=== PATIENT | female | born 1970 | race Caucasian/White ===

== ENCOUNTER 2024-01-16 08:49 | Outpatient (CLI) | payer OTHER, SELFPAY ==
--- OUTSIDE RECORDS SUMMARY | 2024-01-18 02:28 | XMS_ITS | Encounter Summary ---
Author Organization [facility] Address [address] [place] [id number] Care Team Providers Care Inspector Repairer Sandstone Name Role Phone Christian Mars MD Unavailable Unavailable Coming Ana Luisa Galeana MD Primary Care Provid er Coming Ana Luisa Galeana MD Unavailable [phone]- [phone] Nan Nguyen RN Unavailable Unavailable Reason for Visit * Reason Comments Medication Refill Encounter Details Date Type Department Care Team (Late st Contact Info) Description 10/08/[address] [phone] Ovidio Ewing PA-C [address] [place] [id number] Medication Refill Social History Tobacco Use Types [...] as of this encounter Plan of Treatment Upcoming Encounters Date Type Department Care Team (Late st Contact Info) Description 01/20/2024 2:00 PM CDT Office Visit [facility] [address] [place] [phone] Vidya Galeano PA-C [address] [place] [phone] 03/07/2024 2:00 PM CDT Office Visit [facility] [address] [place] [phone] [place] [address] [place], [place] [phone] documented as of this encounter Visit Diagnoses Diagnosis Insomnia, unspecified type documented in this encounter Additional Health Concerns Assessment Noted Time PHQ-9 Depression Total Score: 5 08/19/19 21 1:08 PM 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
--- OUTSIDE RECORDS SUMMARY | 2024-01-18 02:28 | XMS_ITS | Encounter Summary ---
Author Organization [facility] Address [address] [place] [address]. [place] [address] Care Team Providers Care Director Physical Therapy Name Role Phone Christian Mars MD Unavailable Unavailable Coming Ana Luisa Galeana MD Primary Care Provid er Coming Ana Luisa Galeana MD Unavailable [phone]- [phone] Nan Nguyen RN Unavailable Unavailable Reason for Visit * Reason Onset Date Comments Refill Request 01/17/2022 Encounter Details Date Type Department Care Team (Late st Contact Info) Description 01/17/2022 MyC Refill [address] [phone] Coming [place] Luisa [place] [id number] [place] [address] [phone] Refill Request Social History Tobacco Use Types [...] often do you attend chur ch or temple services? Never 10/12/2021 Do you belong to any clubs o r organizations such as worship groups, unions, fraternal or athletic groups, or [...] Answer Date Recorded PHQ-2 Score 1 10/13/2021 [facility] - Occupational [...] place to sleep or slept in a snf (including now)? No 10/12/2021 Sex and Gender Information Value Date Recorded Sex Assigned at Female 09/29/2018 12:59 AM CDT Gender Identity Female 09/29/2018 12:59 AM CDT Sexual Orientation Straight 09/29/2018 12 :59 AM CDT documented as of this encounter Plan of Treatment Upcoming Encounters Date Type Department Care Team (Late st Contact Info) Description 01/20/2024 2:00 PM CDT Office Visit [facility] [id number] [place] [address] [phone] Vidya Galeano PA-C [address] [place] [phone] 03/07/2024 2:00 PM CDT Office Visit [facility] [id number] [place] [address] [phone] [place] [address] [place], [place] [phone] documented as of this encounter Visit Diagnoses Diagnosis Anxiety attack Panic disorder without agoraphobia documented in this encounter Additional Health Concerns Assessment Noted Time PHQ-9 Depression Total Score: 5 10/14/19 22 7:02 AM CDT documented as of this encounter Care Teams Director Physical Therapy Relationship Specialty Start Date End Date Coming [place] Lu[place] [id number] [place] [address] [phone] PCP - General Family Practice 06/29/19 Christian Mars MD Family Practice 05/26/11 [place] [address] [place] [address] Assigned PCP 07/08/19 Nan Nguyen RN 09/09/21 08/10/22 documented as of this encounter
--- OUTSIDE RECORDS SUMMARY | 2024-01-18 02:28 | XMS_ITS | Encounter Summary ---
Author Organization [facility] Address [address] [place] [address]. [place] [address] Care Team Providers Care Contracting Engineer Name Role Phone Christian Mars MD Unavailable Unavailable Coming Ana Luisa Galeana MD Primary Care Provid er Coming Ana Luisa Galeana MD Unavailable [phone]- [phone] Reason for Visit * Reason Comments Medication Refill Encounter Details Date Type Department Care Team ([facility] st Contact Info) Description 01/02/[address] [phone] Coming Ana Luisa Galeana MD [address] [place] [address] [phone] Medication Refill Social History Tobacco Use Types [...] week 10/12/2021 How often do you attend [facility] or sikh services? Never 10/12/2021 Do you belong to any clubs o r organizations such as bahai groups, unions, fraternal or athletic groups, or [...] Answer Date Recorded PHQ-2 Score 2 11/09/2023 [facility] - Occupational [...] in an abandoned building, in an overnight nursing home, or couch-surfing.) Yes 06/09/2023 Are you worried [...] Description 01/20/2024 2:00 PM CDT Office Visit [facility] [address] [place] [phone] Vidya Galeano PA-C [id number] [place] [address] [phone] 03/07/2024 2:00 PM CDT Office Visit [facility] [id number] [place] [address] [phone] [place] [address] [place], [place] [phone] documented as of this encounter Visit Diagnoses Diagnosis Pure hyperglyceridemia Encounter for medication refill Issue of repeat prescriptions documented in this encounter Additional Health Concerns Assessment Noted Time PHQ-9 Depression Total Score: 9 09/26/19 24 11:29 AM CDT documented as of this encounter Care Teams Contracting Engineer Relationship Specialty Start Date [place] [address] [place] [address] PCP - General Family Practice 06/29/19 Christian Mars MD Family Practice 05/26/11 [place] [address] [place] [address] Assigned PCP 07/08/19 documented as of this encounter
--- OUTSIDE RECORDS SUMMARY | 2024-01-18 02:28 | XMS_ITS | Clinical Summary ---
Author Organization [facility] Address [address] [place] [address] Care Team Providers Care Optical Instrument Inspector Name Role Phone Christian Mars MD Unavailable Unavailable Coming Ana Luisa Galeana MD Primary Care Provid er Coming Ana Luisa Galeana MD Unavailable [phone]- [phone] Allergies Active Allergy Reactions Criticality Noted Date [...] Type Department Care Team Description 01/02/[address] [address] Ana Luisa Briones MD Medication Refill 11/12/[address] [address] Ana Luisa Briones MD Medication Refill 11/09/2023 MyC Medical Advice [address] [address] Johanne Sprague from Last 3 Months Immunizations [...] Substance Abuse Father C.A.D. Maternal Grandfather 50's [place] Coronary Artery Disease Maternal Grandfather Hea rt [...] week 10/12/2021 How often do you attend [facility] or hoahaoism services? Never 10/12/2021 Do you belong to any clubs o r organizations such as caodaism groups, unions, fraternal or athletic groups, or [...] Answer Date Recorded PHQ-2 Score 2 11/09/2023 [facility] of Occupat ional Health - Occupational Stress [...] Date Recorded Do you have housing? (Jovanny castorena is defined as stable permanent housing and [...] Comments Blood Pressure 161/94 06/15/2023 10:31 AM HAND SHAPER Pulse 61 06/15/2023 10:26 AM HAND SHAPER Temperature 36.7 ??C (98 ??F) 06/15/2023 10:26 AM HAND SHAPER Respiratory Rate 17 06/15/2023 10:26 AM HAND SHAPER Oxygen Saturation 98% 06/15/2023 10:26 AM HAND SHAPER Inhaled Oxygen Concentration - - Weight 86.2 kg (190 lb) 06/15/2023 10:26 AM HAND SHAPER Height 167.6 cm (5' 6) 06/15/2023 10:26 AM HAND SHAPER Body Mass Index 30.67 06/15/2023 10:26 AM HAND SHAPER Plan of Treatment Upcoming Encounters Date Type Department Care Team (Late st Contact Info) Description 01/20/2024 2:00 PM CDT Office Visit [facility] [address] [place] [phone] Vidya Galeano PA-C [address] [place] [address] 03/07/2024 2:00 PM CDT Office Visit [facility] [address] [place] [address] [place] [address] [place] [address] Health Maintenance Due Date Last Done Comments [...] Additional history exists YEARLY PREVENTIVE VISIT 10/13/2022 10/14/19 22, 08/23/2019, 08/23/2019, Additional history exists COVID-19 Vaccine (3 - season) 2023 10/13/2021, 10/29/2020 MAMMO SCREENING 03/12/2023 03/12/2022, 3 , 01/04/2019 DEPRESSION 6 MO INDEX REPEAT PHQ-9 11/23/2023 11/09/2023, 09/26/2023, 06/15/2023, Additional history exists ANNUAL REVIEW OF HM ORDERS 12/09/202312/08, 10/13/2021, 07/02/2020, Additional history exists DIABETIC FOOT EXAM 12/09/2023 12/08/2022, 0 12/08/2022, 12/17/2020, Additional history exists MICROALBUMIN 12/09/2023 12/08/2022, 04/1 02/2022, 12/05/2019, Additional history exists A1C 12/15/2023 06/15/2023, [...] DIRECT LDL PANEL Add-On 06/15/2023 10:40 AM HAND SHAPER Hyperlipidemia LDL goal <100 BASIC METABOLIC PANEL Add-On 06/15/2023 10:40 AM HAND SHAPER Fatigue, unspecified type HEMOGLOBIN A1C Routine 06/15/2023 10:40 AM HAND SHAPER Type 2 diabetes mellitus with hyperglycemia, without long-term current use of insulin (H) COLOGUARD([employer]) Routine 12/27/2022 10:40 AM CDT Colon cancer screening ALBUMIN RANDOM URINE QUANTITATIVE Routine 12/08/2022 11:13 AM CDT Type 2 diabetes mellitus with hyperglycemia, without long-term current use of insulin (H) MA SCREENING BILATERAL W/ NAVEED Routine 03/12/2022 10:56 AM CDT Visit for screening mammogram EYE EXAM - HIM SCAN Routine 10/03/2021 HIV 1 AND 2 ANTIBODY (QUEST) Routine 05/20/2008 8:07 AM HAND SHAPER HEPATITIS C ANTIBODY Routine 05/20/2008 8:07 AM HAND SHAPER from Last 3 Months or Most Recently Relevant to Health Maintenance Results * (ABNORMAL) Lipid panel reflex to direct LDL Fasting (06/15/2023 10:40 AM HAND SHAPER) Cholesterol 139 <200 mg/dL 06/15/2023 6:13 PM HAND SHAPER [facility] Triglycerides 1,116(H) <150 mg/dL 06/15/2023 6:13 PM HAND SHAPER [facility] Direct Measure HDL 20(L) >=50 mg/dL 06/15/2023 6:13 PM HAND SHAPER [facility] LDL Cholesterol Calculated 06/15/2023 6:13 PM HAND SHAPER [facility] Comment:Cannot estimate LDL when triglyceride exceeds 400 mg/dL Non HDL Cholesterol 119 <130 mg/dL 06/15/2023 6:13 PM HAND SHAPER [facility] Blood BLOOD SPECIMEN / Unknown Venipuncture / Unknown 06/15/2023 10:40 AM HAND SHAPER 06/15/2023 10:40 AM HAND SHAPER Narrative [facility] - 06/15/2023 6:13 PM HAND SHAPER Cholesterol Desirable: ??<200 mg/dL Triglycerides Normal: ??Less [...] MD LAB - BLOOD ORDERABLES [facility] [address] [facility], [address] [phone], [facility] [phone] * (ABNORMAL) Hemoglobin A1c (06/15/2023 10:40 AM HAND SHAPER) Hemoglobin A1C 9.6(H) 0.0 - 5.6 % 06/15/2023 11:17 AM HAND SHAPER [facility] Comment: Normal <5.7% Prediabetes 5.7-6.4% ?? Diabetes 6.5% or higher Note: Adopted from ADA consensus guidelines. Blood BLOOD SPECIMEN / Unknown Venipuncture / Unknown 06/15/2023 10:40 AM HAND SHAPER 06/15/2023 10:40 AM HAND SHAPER Narrative [facility] - 06/15/2023 11:17 AM HAND SHAPER Results confirmed by repeat test. September Monika Galeana MD LAB - BLOOD ORDERABLES [facility] [address] [facility] (no room number, 1st floor of clinic) [place] [address], [facility] [phone] * (ABNORMAL) Basic metabolic panel (Ca, Cl, CO2, Creat, Gluc, K, Na, BUN) (06/15/2023 10:40 AM HAND SHAPER) [facility] Sodium 135 135 - 145 mmol/L 06/15/2023 5:59 PM HAND SHAPER [facility] Comment:Reference intervals for this test were updated on 03/15/2023 to more accurately reflect our healthy population. There may be differences in the flagging of prior results with similar values performed with this method. Interpretation of those prior results can be made in the context of the updated reference intervals. Potassium 4.5 3.4 - 5.3 mmol/L 06/15/2023 5:59 PM HAND SHAPER [facility] Chloride 103 98 - 107 mmol/L 06/15/2023 5:59 PM HAND SHAPER [facility] Carbon Dioxide (CO2) 19(L) 22 - 29 mmol/L 06/15/2023 5:59 PM HAND SHAPER [facility] Anion Gap 13 7 - 15 mmol/L 06/15/2023 5:59 PM HAND SHAPER [facility] Urea Nitrogen 10.4 6.0 - 20.0 mg/dL 06/15/2023 5:59 PM HAND SHAPER [facility] Creatinine 0.64 0.51 - 0.95 mg/dL 06/15/2023 5:59 PM HAND SHAPER [facility] GFR Estimate >90 >60 mL/min/1. 73m2 06/15/2023 5:59 PM HAND SHAPER [facility] Calcium 9.4 8.6 - 10.0 mg/dL 06/15/2023 5:59 PM HAND SHAPER [facility] Glucose 301(H) 70 - 99 mg/dL 06/15/2023 5:59 PM HAND SHAPER [facility] Blood BLOOD SPECIMEN / Unknown Venipuncture / Unknown 06/15/2023 10:40 AM HAND SHAPER 06/15/2023 10:40 AM HAND SHAPER September Monika Galeana MD LAB - BLOOD ORDERABLES [facility] Lab [address] [facility], [address] [place] [address], [facility] [phone] * COLOGUARD([facility]) (12/27/2022 10:40 AM CDT) COLOGUARD-ABSTRACT Negative Negative 2022 10:58 AM CDT [facility] (CLIA #:[id number]) Comment: NEGATIVE TEST RESULT. A negative Cologuard [...] cancer. ??Following a negative Cologuard result, the [place] Cancer Society and U.S. Multi-Society Task Force screening guidelines recommend a Cologuard re-screening interval of 3 years. References: [place] Cancer Society Guideline for Colorectal Cancer Screening: https://www.cancer.org/cancer/izlnp-blqlep-nqnxep/hjmczjnip-kwvrcxven-meliuqf/ac s-rec ommendations.html.; Matt HAMMOND, Laura ANAYA, Bienvenido GONZALEZ, Colorectal Cancer Screening: Recommendations for Physicians and Patients from the U.S. Multi-Society Task Force on Colorectal Cancer Screening , Am J Gastroenterology 2017; 112:9125-8709. TEST DESCRIPTION: Composite algorithmic analysis of stool [...] Fischer et al, N Engl J Med 2014;370(14):5074-6260.) Cologuard may produce a false negative or false positive result (no colorectal cancer or precancerous polyp present at colonoscopy follow up). A negative Cologuard test result does not guarantee the absence of CRC or advanced adenoma (pre-cancer). The current Cologuard screening interval is every 3 years. ([place] Cancer Society and U.S. Multi-Society Task Force). Cologuard performance data in a 10,000 patient pivotal study using colonoscopy as the reference method can be accessed at the following location: www.LiveRamp/results. Additional description of the Cologuard test process, warnings and precautions can be found at www.Songfor.com. Stool specimen (specimen) 12/27/2022 10:40 AM CDT 12/28/2022 10:28 PM CDT September Monika Galeana MD LABORATORY [facility] [address] [phone] [facility] (CLIA #:[id number]) [place] [address] * Albumin Random Urine Quantitative with Creat [...] control, and institution of therapy with an ngvdaiwohbz-lqwkqxendf-bbczog (RAFAEL) inhibitor (if the patient can tolerate it). ?? Urine URINE SPECIMEN / Unknown Non-blood Collection / Unknown 12/08/2022 11:13 AM CDT 12/08/2022 12:21 PM CDT September Monika Galeana MD LAB - URINE ORDERABLES [facility] Lab [address] [facility], Room [address] [place] [address], [facility] [phone] * MA Screen Bilateral w/Naveed (03/12/2022 10:56 [...] - 10/03/2021 Date of last eye exam [facility] approx. 10-03-21 Patient Reported OTHER * HIV 1 and 2 Antibody (05/20/2008 8:07 AM HAND SHAPER) HIV 1&2 Antibody Negative NEG MISYS 05/20/2008 8:07 AM HAND SHAPER 05/15/2008 7:02 AM HAND SHAPER Rio Melvin MD LAB - BLOOD ORDERABL ES MISYS * Hepatitis C antibody (05/20/2008 8:07 AM HAND SHAPER) Hepatitis C Antibody Negative NEG MISYS 05/20/2008 8:07 AM HAND SHAPER 05/15/2008 7:02 AM HAND SHAPER Rio Melvin MD LAB - BLOOD ORDERABL ES MISYS from Last 3 Months or Most Recently Relevant to Health Maintenance Advance Directives For more information, please contact: [phone] * Full Code (Latest Code Status on File) Date Activated Date Inactivated Comments 04/03/2015 9:33 PM 04/07/2015 4:02 PM Care Teams Optical Instrument Inspector Relationship Specialty Start Date [place] [address] [place] [address] PCP - General Family Practice 06/29/19 Christian Mars MD Family Practice 05/26/11 [place] [address] [place] [address] Assigned PCP 07/08/19
--- OUTSIDE RECORDS SUMMARY | 2024-01-18 02:28 | XMS_ITS | Encounter Summary ---
Author Organization [facility] Address [address] [place] [address] Care Team Providers Care Sheet Metal Work Furnace Installer Name Role Phone Christian Mars MD Unavailable Unavailable Coming Ana Luisa Galeana MD Primary Care Provid er Coming Ana Luisa Galeana MD Unavailable [phone]- [phone] Encounter Details Date Type Department Care Team (Late st Contact Info) Description 11/09/2023 [facility] Medical Advice [address] [address] Johanne Sprague Social History Tobacco Use Types [...] often do you attend chur ch or druze services? Never 10/12/2021 Do you belong to any clubs o r organizations such as latter-day groups, unions, fraternal or athletic groups, or [...] Answer Date Recorded PHQ-2 Score 2 11/09/2023 [facility] of Occupat ional Health - Occupational [...] in an abandoned building, in an overnight prison, or couch-surfing.) Yes 06/09/2023 Are you worried [...] Description 01/20/2024 2:00 PM CDT Office Visit [facility] [address] [place] [phone] Vidya Galeano PA-C [address] [place] [phone] 03/07/2024 2:00 PM CDT Office Visit [facility] [address] [place] [phone] [place] [address] [place], [place] [phone] documented as of this encounter Visit Diagnoses Not on filedocumented in this encounter Additional Health Concerns Assessment Noted Time PHQ-9 Depression Total Score: 9 09/26/19 24 11:29 AM CDT documented as of this encounter Care Teams Sheet Metal Work Furnace Installer Relationship Specialty Start Date End Date Coming [place] [id number] [place] [phone] PCP - General Family Practice 06/29/19 Christian Mars MD Family Practice 05/26/11 [place] [address] [place] [address] Assigned PCP 07/08/19 documented as of this encounter
--- OUTSIDE RECORDS SUMMARY | 2024-01-18 02:28 | XMS_ITS | Encounter Summary ---
Author Organization [facility] Address [address] [place] [address]. [place] [address] Care Team Providers Care Superannuation Clerk Name Role Phone Christian Mars MD Unavailable Unavailable Coming Ana Luisa Galeana MD Primary Care Provid er Coming Ana Luisa Galeana MD Unavailable [phone]- [phone] Encounter Details Date Type Department Care Team (Late st Contact Info) Description 06/06/2023 [facility] Medical Advice [facility] [address] [place] [phone] [place]ana [place] [phone] [place] [phone] Social History Tobacco Use Types Packs/Day Years [...] you attend [facility] or hoahaoism services? Never 10/12/2021 Do you belong to any clubs o r organizations such as yazidi groups, unions, fraternal or athletic groups, or [...] Answer Date Recorded PHQ-2 Score 2 12/08/2022 [facility] of Occupat ional Health - Occupational Stress [...] in an abandoned building, in an overnight senior care, or couch-surfing.) Yes 06/09/2023 Are you worried [...] Description 01/20/2024 2:00 PM CDT Office Visit [facility] [address] [place] [phone] Vidya Galeano PA-C [address] [place] [phone] 03/07/2024 2:00 PM CDT Office Visit [facility] [address] [place] [phone] [place] [address] [place], [place] [phone] documented as of this encounter Visit Diagnoses Not on filedocumented in this encounter Additional Health Concerns Assessment Noted Time PHQ-9 Depression Total Score: 6 12/09/19 23 10:26 AM CDT documented as of this encounter Care Teams Superannuation Clerk Relationship Specialty Start Date [place] [address] [place] [address] PCP - General Family Practice 06/29/19 Christian Mars MD Family Practice 05/26/11 [place] [address] [place] [address] Assigned PCP 1/19/20 documented as of this encounter
--- OUTSIDE RECORDS SUMMARY | 2024-01-18 02:28 | XMS_ITS | Encounter Summary ---
Author Organization [facility] Address [address] [place] [address]. [place] [address] Care Team Providers Care Shed Boss Name Role Phone Christian Mars MD Unavailable Unavailable Coming Ana Luisa Galeana MD Primary Care Provid er Coming Ana Luisa Galeana MD Unavailable [phone]- [phone] Nan Nguyen RN Unavailable Unavailable Reason for Visit * Reason Onset Date Comments Refill Request 06/05/2022 Encounter Details Date Type Department Care Team (Late st Contact Info) Description 06/05/2022 MyC Refill [address] [phone] Coming [place]isa G[place]ana [place] [phone] [place] [phone] Refill Request Social History Tobacco Use Types [...] often do you attend chur ch or religion services? Never 10/12/2021 Do you belong to any clubs o r organizations such as scientologist groups, unions, fraternal or athletic groups, or [...] Answer Date Recorded PHQ-2 Score 3 03/26/2022 [facility] of Occupat ional Health - Occupational [...] Polly Huerta RN - 06/07/2022 11:54 AM MEDICAL HOUSEKEEPER Prescription approved per [facility] Refill Protocol. Polly Huerta RN CAL HOUSEKEEPER documented in this encounter Plan of Treatment Upcoming Encounters Date Type Department Care Team (Late st Contact Info) Description 01/20/2024 2:00 PM CDT Office Visit [facility] [address] [place] [phone] Vidya Galeano PA-C [address] [place] [phone] 03/07/2024 2:00 PM CDT Office Visit [facility] [address] [place] [phone] [place] [address] [place], [place] [phone] documented as of this encounter Visit Diagnoses Diagnosis Type 2 diabetes mellitus without complication, without long-term current use of insulin (H) documented in this encounter Additional Health Concerns Assessment Noted Time PHQ-9 Depression Total Score: 11 022 9:30 AM CDT documented as of this encounter Care Teams Shed Boss Relationship Specialty Start Date [place] [address] [place] [address] PCP - General Family Practice 06/29/19 Christian Mars MD [facility] Practice 05/26/11 [place] [address] [place] [address] Assigned PCP 07/08/19 Nan Nguyen, RN 09/09/21 08/10/22 documented as of this encounter
--- OUTSIDE RECORDS SUMMARY | 2024-01-18 02:28 | XMS_ITS | Encounter Summary ---
Author Organization [facility] Address [address] [place] [address]. [place] [address] Care Team Providers Care Air Tool Operator Name Role Phone Christian Mars MD Unavailable Unavailable Coming Ana Luisa Galeana MD Primary Care Provid er Coming Ana Luisa Galeana MD Unavailable [phone]- [phone] Nan Nguyen RN Unavailable Unavailable Reason for Visit * Reason Comments Medication Refill Encounter Details Date Type Department Care Team (Late st Contact Info) Description 08/09/[address] [phone] Coming Ana Luisa Galeana MD [address] [place] [phone] Medication Refill Social History Tobacco Use Types [...] COVID-19? No / Unsure 07/13/2021 1:45 PM BACKUP SAWYER documented as of this encounter Miscellaneous Notes * Telephone Encounter - Gissel Garcia RN - 08/10/2021 7:12 AM CST Routing refill request to provider for review/approval because: Drug not on the [facility] refill protocol Gissel Garcia RN on 08/10/2021 at 7:12 AM UP SAWYER documented in this encounter Plan of Treatment Upcoming Encounters Date Type Department Care Team (Late st Contact Info) Description 01/20/2024 2:00 PM CDT Office Visit [facility] [address] [place] [phone] Vidya Galeano PA-C [address] [place] [phone] 03/07/2024 2:00 PM CDT Office Visit [facility] [address] [place] [phone] [place] [address] [place], [place] [phone] documented as of this encounter Visit Diagnoses Diagnosis Insomnia, unspecified type documented in this encounter Additional Health Concerns Assessment Noted Time PHQ-9 Depression Total Score: 4 07/13/19 22 2:05 PM BACKUP SAWYER documented as of this encounter Care Teams Air Tool Operator Relationship Specialty Start Date [place] [address] [place], [place] [phone] PCP - General Family Practice 06/29/19 Christian Mars MD Family Practice 05/26/11 [place] [address] [facility] [place] [address] Assigned PCP 07/08/19 Nan Nguyen RN 09/09/21 2 documented as of this encounter
--- OUTSIDE RECORDS SUMMARY | 2024-01-18 02:28 | XMS_ITS | Encounter Summary ---
Author Organization [facility] Address [address] [place] [address]. [place] [address] Care Team Providers Care Neurological Surgery Teacher Name Role Phone Christian Mars MD Unavailable Unavailable Coming Ana Luisa Galeana MD Primary Care Provid er Coming Ana Luisa Galeana MD Unavailable [phone]- [phone] Nan Nguyen RN Unavailable Unavailable Reason for Visit * Reason Onset Date Comments Prior Auth - Medication 08/04/2022 INVOKANA 100 MG tablet PA APPROVED Encounter Details Date Type Department Care Team (Late st Contact Info) Description 08/04/2022 Telephone [facility] [address] [place] [phone] [place] [address] [place] [address] Prior Auth - Medication (INVOKANA 100 [...] often do you attend chur ch or alevism services? Never 10/12/2021 Do you belong to any clubs o r organizations such as christianity groups, unions, fraternal or athletic groups, or [...] Answer Date Recorded PHQ-2 Score 3 03/26/2022 [facility] of Occupat ional Health - Occupational Stress [...] place to sleep or slept in a long-term (including now)? No 10/12/2021 Sex and Gender [...] APPROVED Approved Dose/Quantity: 90 Reference #: Insurance P. [employer]: [employer] [phone] Expected CoPay: CoPay Card Available: Foundation Assistance Needed: Which Pharmacy is filling the prescription (Not needed for infusion/clinic administered): [id number] [facility] Pharmacy Notified: Yes Patient Notified: Comment: Pharmacy will notify patient. RNAL COMMUNICATIONS INTERN * Telephone Encounter - Micheline Santacruz - 08/08/2022 2:46 PM CST Images from the original note were not included. PA Initiation Medication: INVOKANA 100 MG tablet PA INITIATED Insurance Company: [employer] - Pharmacy Filling the Rx: [id number] - [place], [place] - [address] [facility] [address] Filling Pharmacy Filling Pharmacy Fax: Start Date: 08/08/2022 [place] Prior Authorization Team [employer]L COMMUNICATIONS INTERN * Telephone Encounter - Zulema Robb - 08/04/2022 10:22 AM CST Prior Authorization Retail Medication Request Medication/Dose: INVOKANA 100 MG tablet ICD code (if different than what is on RX): Type 2 diabetes mellitus with hyperglycemia, without long-term current use of insulin (H) [E11.65] Previously Tried and Failed: Rationale: Insurance Name: [facility] Pharmacy Information (if different than what is on RX) Name: [id number] [place], [place] - [address] [facility] [address] [employer]L COMMUNICATIONS INTERN documented in this encounter Plan of Treatment Upcoming Encounters Date Type Department Care Team (Late st Contact Info) Description 01/20/2024 2:00 PM CDT Office Visit [address] [phone] Vidya Galeano PA-C [address] [place] [phone] 03/07/2024 2:00 PM CDT Office Visit [facility] [address] [place] [phone] [place] [address] [place], [place] [phone] documented as of this encounter Visit Diagnoses Not on filedocumented in this encounter Additional Health Concerns Assessment Noted Time PHQ-9 Depression Total Score: 11 022 9:30 AM CDT documented as of this encounter Care Teams Neurological Surgery Teacher Relationship Specialty Start Date [place] [address] [place] [address] PCP - General Family Practice 06/29/19 Christian Mars MD [facility] Practice 05/26/11 [place] [address] [place] [address] Assigned PCP 07/08/19 Nan Nguyen, RN 09/09/21 08/10/22 documented as of this encounter
--- OUTSIDE RECORDS SUMMARY | 2024-01-18 02:28 | XMS_ITS | Encounter Summary ---
Author Organization [place] Address [address] [place] [address]. [place] [address] Care Team Providers Care Verify Rep Name Role Phone Christian Mars MD Unavailable Unavailable Coming Ana Luisa Galeana MD Primary Care Provid er Coming Ana Luisa Galeana MD Unavailable +- [phone] Nan Nguyen RN Unavailable Unavailable Reason for Visit * Reason Comments Medication Refill Encounter Details Date Type Department Care Team (Late st Contact Info) Description 02/19/[address] [address] Ryan Galvan MD Medication Refill [...] 02/20/2021 11:02 AM CDT Prescription approved per [facility] Refill Protocol. Tesha Steinberg, BERENICE [facility] -- Triage Nurse documented in this encounter Plan of Treatment Upcoming Encounters Date Type Department Care Team (Late st Contact Info) Description 01/20/2024 2:00 PM CDT Office Visit [facility] [address] [place] [phone] Vidya Galeano PA-C [address] [place] [phone] 03/07/2024 2:00 PM CDT Office Visit [facility] [address] [place] [phone] [place] [address] [place], [place] [phone] documented as of this encounter Visit Diagnoses Diagnosis Type 2 diabetes mellitus without complication, without long-term current use of insulin (H) documented in this encounter Additional Health Concerns Assessment Noted Time PHQ-9 Depression Total Score: 6 12/18/19 21 7:03 AM CDT documented as of this encounter Care Teams Verify Rep Relationship Specialty Start Date [place] [address] [place] [address] PCP - General Family Practice 06/29/19 Christian Mars MD Family Practice 05/26/11 [place] [address] [place] [address] Assigned PCP 07/08/19 Nan Nguyen, BERENICE 09/09/21 08/10/22 documented as of this encounter
--- OUTSIDE RECORDS SUMMARY | 2024-01-18 02:28 | XMS_ITS | Encounter Summary ---
Author Organization [place] Address [address] [place] [address]. [place] [address] Care Team Providers Care Masonry Installer Name Role Phone Christian Mars MD Unavailable Unavailable Coming Ana Luisa Galeana MD Primary Care Provid er Coming Ana Luisa Galeana MD Unavailable +1- [phone] Nan Nguyen RN Unavailable Unavailable Reason for Visit * Reason Comments Medication Refill Encounter Details Date Type Department Care Team (Late st Contact Info) Description 02/18/[address] [phone] Coming Ana Luisa Galeana MD [address] [place] [address] [phone] Medication Refill Social History Tobacco Use Types [...] the [facility] refill protocol Tesha Steinberg RN [facility] -- Triage Nurse documented in this encounter Plan of Treatment Upcoming Encounters Date Type Department Care Team (Late st Contact Info) Description 01/20/2024 2:00 PM CDT Office Visit [facility] [address] [place] [phone] Vidya Galeano PA-C [address] [place] [phone] 03/07/2024 2:00 PM CDT Office Visit [facility] [address] [place] [phone] [place] [address] [place], [place] [phone] documented as of this encounter Visit Diagnoses Diagnosis Anxiety attack Panic disorder without agoraphobia Insomnia, unspecified type documented in this encounter Additional Health Concerns Assessment Noted Time PHQ-9 Depression Total Score: 6 12/18/19 21 7:03 AM CDT documented as of this encounter Care Teams Masonry Installer Relationship Specialty Start Date [place] [address] [place], [place] [phone] PCP - General Family Practice 06/29/19 Christian Mars MD Family Practice 05/26/11 [place] [address] [place], [place] [phone] Assigned PCP 07/08/19 Nan Nguyen RN 09/09/21 08/10/22 documented as of this encounter
--- OUTSIDE RECORDS SUMMARY | 2024-01-18 02:28 | XMS_ITS | Encounter Summary ---
Author Organization [facility] Address [address] [place] [address]. [place] [address] Care Team Providers Care Bushler Name Role Phone Christian Mars MD Unavailable Unavailable Coming Ana Luisa Galeana MD Primary Care Provid er Coming Ana Luisa Galeana MD Unavailable +1- [phone] Reason for Visit * Reason Comments Medication Refill Encounter Details Date Type Department Care Team ([facility] st Contact Info) Description 11/12/[address] [phone] Coming Ana Luisa Galeana MD [address] [place] [address] [phone] Medication Refill Social History Tobacco Use Types [...] week 10/12/2021 How often do you attend [facility] or lutheran services? Never 10/12/2021 Do you belong to any clubs o r organizations such as jewish groups, unions, fraternal or athletic groups, or [...] Answer Date Recorded PHQ-2 Score 2 11/09/2023 [facility] - [...] in an abandoned building, in an overnight penitentiary, or couch-surfing.) Yes 06/09/2023 Are you worried [...] a message to call clinic. Johanne Sprague. Teletype Mechanic * Telephone Encounter - Ana Luisa Briones MD - 11/15/2023 10:47 PM CDT Needs visit for refills, please call to schedule. documented in this encounter Plan of Treatment Upcoming Encounters Date Type Department Care Team (Late st Contact Info) Description 01/20/2024 2:00 PM CDT Office Visit [address] [phone] Vidya Galeano PA-C [address] [place] [phone] 03/07/2024 2:00 PM CDT Office Visit [facility] [address] [place] [address] [place] [address] [place] [address] documented as of this encounter Visit Diagnoses Diagnosis Type 2 diabetes mellitus with hyperglycemia, without long-term current use of insulin (H) Uncontrolled type 2 diabetes mellitus with hyperglycemia (H) documented in this encounter Additional Health Concerns Assessment Noted Time PHQ-9 Depression Total Score: 9 09/26/19 24 11:29 AM CDT documented as of this encounter Care Teams Bushler Relationship Specialty Start Date [place] [address] [place] [address] PCP - General Family Practice 06/29/19 Christian Mars MD [place] Family [facility] 05/26/11 [place] [address] [place] [address] Assigned PCP 07/08/19 documented as of this encounter
--- OUTSIDE RECORDS SUMMARY | 2024-01-18 02:28 | XMS_ITS | Encounter Summary ---
Author Organization [place] Address [address] [place] [address]. [place] [address] Care Team Providers Care Executive Director Of Nursing Name Role Phone Christian Mars MD Unavailable Unavailable Coming Ana Luisa Galeana MD Primary Care Provid er Coming Ana Luisa Galeana MD Unavailable +1- [phone] Nan Nguyen RN Unavailable Unavailable Reason for Visit * Reason Comments Medication Refill Encounter Details Date Type Department Care Team (Late st Contact Info) Description 03/01/[address] [phone] Coming Ana Luisa Glaeana MD [address] [place] [phone] Medication Refill Social History Tobacco Use Types [...] week 10/12/2021 How often do you attend [facility] or adventism services? Never 10/12/2021 Do you belong to any clubs o r organizations such as yazidism groups, unions, fraternal or athletic groups, or [...] Answer Date Recorded PHQ-2 Score 2 02/15/2022 [facility] - Occupational [...] place to sleep or slept in a prison (including now)? No 10/12/2021 Sex and Gender [...] Description 01/20/2024 2:00 PM CDT Office Visit [facility] [address] [place] [phone] Vidya Galeano PA-C [address] [place] [phone] 03/07/2024 2:00 PM CDT Office Visit [facility] [address] [place] [phone] [place] [address] [place] [address] documented as of this encounter Visit Diagnoses Diagnosis Insomnia, unspecified type documented in this encounter Additional Health Concerns Assessment Noted Time PHQ-9 Depression Total Score: 7 02/16/20 22 10:24 AM CDT documented as of this encounter Care Teams Executive Director Of Nursing Relationship Specialty Start Date End Date Coming [place]ana [place] [id number] [place] [address] PCP - General Family Practice 06/29/19 Christian Mars MD Family Practice 05/26/11 [place] [address] [place] [address] Assigned PCP 07/08/19 Nan Nguyen, RN 09/09/21 08/10/22 documented as of this encounter
--- OUTSIDE RECORDS SUMMARY | 2024-01-18 02:28 | XMS_ITS | Encounter Summary ---
Author Organization [facility] Address [address] [place] [address]. [place] [address] Care Team Providers Care Fortune Cookie Maker Name Role Phone Christian Mars MD Unavailable Unavailable Coming Ana Luisa Galeana MD Primary Care Provid er Coming Ana Luisa Galeana MD Unavailable +1- [phone] Nan Nguyen RN Unavailable Unavailable Reason for Visit * Reason Comments Medication Refill Encounter Details Date Type Department Care Team (Late st Contact Info) Description 03/08/[address] [phone] Coming Ana Luisa Galeana MD [address] [place] [address] [phone] Medication Refill Social History Tobacco Use Types [...] Miscellaneous Notes * Telephone Encounter - Zuly Guerrero, RN - 03/10/2021 1:26 PM CDT Images from the original note were not included. Routing refill request to provider for review/approval because: SSRIs Protocol [id number]/08/2021 03:26 AM PHQ-9 score less than 5 [...] 2:00 PM CDT Office Visit [facility] [address] [place] [phone] Vidya Galeano PA-C [address] [place] [phone] 03/07/2024 2:00 PM CDT Office Visit [facility] [address] [place] [phone] [place] [address] [place], [place] [phone] documented as of this encounter Visit Diagnoses Diagnosis IGNACIO (generalized anxiety disorder) Generalized anxiety disorder Current mild episode of major depressive disorder, unspecified whether recurrent (H24) documented in this encounter Additional Health Concerns Assessment Noted Time PHQ-9 Depression Total Score: 6 12/18/19 21 7:03 AM CDT documented as of this encounter Care Teams Fortune Cookie Maker Relationship Specialty Start Date End Date Coming [place] [id number] [place] [address] [phone] PCP - General Family Practice 06/29/19 Christian Mars MD Family Practice 05/26/11 [place] [address] [place] [address] Assigned PCP 07/08/19 Nan Nguyen, RN 09/09/21 08/10/22 documented as of this encounter
--- OUTSIDE RECORDS SUMMARY | 2024-01-18 02:28 | XMS_ITS | Encounter Summary ---
Author Organization [facility] Address [address] [place] [address]. [place] [address] Care Team Providers Care Lining Caser Name Role Phone Christian Mars MD Unavailable Unavailable Coming Ana Luisa Galeana MD Primary Care Provid er Coming Ana Luisa Galeana MD Unavailable +- [phone] Nan Nguyen RN Unavailable Unavailable Encounter Details Date Type Department Care Team (Late st Contact Info) Description 04/29/2022 [facility] Medical Advice [facility] [address] [place] [address] Khanh Ansari Social History Tobacco [...] often do you attend chur ch or amish services? Never 10/12/2021 Do you belong to any clubs o r organizations such as pentecostalism groups, unions, fraternal or athletic groups, or [...] Answer Date Recorded PHQ-2 Score 3 03/26/2022 [facility] Occup[facility] Health - Occupational [...] place to sleep or slept in a chcf (including now)? No 10/12/2021 Sex and Gender Information Value Date Recorded Sex Assigned at Female 09/29/2018 12:59 AM CDT Gender Identity Female 09/29/2018 12:59 AM CDT Sexual Orientation Straight 09/29/2018 12 :59 AM CDT documented as of this encounter Plan of Treatment Upcoming Encounters Date Type Department Care Team (Late st Contact Info) Description 01/20/2024 2:00 PM CDT Office Visit [facility] [address] [place] [phone] Vidya Galeano PA-C [address] [place] [phone] 03/07/2024 2:00 PM CDT Office Visit [facility] [address] [place] [phone] [place] [address] [place], [place] [phone] documented as of this encounter Visit Diagnoses Not on filedocumented in this encounter Additional Health Concerns Assessment Noted Time PHQ-9 Depression Total Score: 11 022 9:30 AM CDT documented as of this encounter Care Teams Lining Caser Relationship Specialty Start [place] [address] [place], [place] [phone] PCP - General Family Practice 06/29/19 Christian Mars MD Family Practice 05/26/11 [place] [address] [place] [address] Assigned PCP 07/08/19 Nan Nguyen, RN 09/09/21 08/10/22 documented as of this encounter
--- OUTSIDE RECORDS SUMMARY | 2024-01-18 02:28 | XMS_ITS | Referral Summary ---
Author Organization [facility] Address [address] [place] [address] Care Team Providers Care Armhole Sewer Name Role Phone Christian Mars MD Unavailable Unavailable Coming Ana Luisa Galeana MD Primary Care Provid er Coming Ana Luisa Galeana MD Unavailable +1- [phone] Encounters Date Type Department Care Team Description 01/02/[address] [phone] Coming Ana Luisa Galeana MD Medication Refill 11/12/[address] [address] Ana Luisa Briones MD Medication Refill 11/09/2023 [facility] Medical Advice [address] [address] Johanne Sprague from Last 3 Months Allergies [...] week 10/12/2021 How often do you attend [facility] or hinduism services? Never 10/12/2021 Do you belong to any clubs o r organizations such as presybeterian groups, unions, fraternal or athletic groups, or [...] Answer Date Recorded PHQ-2 Score 2 11/09/2023 [facility]at ional Health - [...] Comments Blood Pressure 161/94 06/15/2023 10:31 AM LAST CLEANER Pulse 61 06/15/2023 10:26 AM LAST CLEANER Temperature 36.7 ??C (98 ??F) 06/15/2023 10:26 AM LAST CLEANER Respiratory Rate 17 06/15/2023 10:26 AM LAST CLEANER Oxygen Saturation 98% 06/15/2023 10:26 AM LAST CLEANER Inhaled Oxygen Concentration - - Weight 86.2 kg (190 lb) 06/15/2023 10:26 AM LAST CLEANER Height 167.6 cm (5' 6) 06/15/2023 10:26 AM LAST CLEANER Body Mass Index 30.67 06/15/2023 10:26 AM LAST CLEANER Plan of Treatment Upcoming Encounters Date Type Department Care Team (Late st Contact Info) Description 01/20/2024 2:00 PM CDT Office Visit [address] [phone] Vidya Galeano PA-C [address] [place] [phone] 03/07/2024 2:00 PM CDT Office Visit [address] [phone] [place] [address] [place], [place] [phone] Procedures Procedure Name Priority Date/Time Associated Diagnosis Comments LIPID REFLEX TO DIRECT LDL PANEL Add-On 06/15/2023 10:40 AM LAST CLEANER Hyperlipidemia LDL goal <100 BASIC METABOLIC PANEL Add-On 06/15/2023 10:40 AM LAST CLEANER Fatigue, unspecified type HEMOGLOBIN A1C Routine 06/15/2023 10:40 AM LAST CLEANER Type 2 diabetes mellitus with hyperglycemia, without [...] 2 ANTIBODY (QUEST) Routine 05/20/2008 8:07 AM LAST CLEANER HEPATITIS C ANTIBODY Routine 05/20/2008 8:07 AM LAST CLEANER from Last 3 Months or Most Recently Relevant to Health Maintenance Results * (ABNORMAL) Lipid panel reflex to direct LDL Fasting (06/15/2023 10:40 AM LAST CLEANER) Cholesterol 139 <200 mg/dL 06/15/2023 6:13 PM LAST CLEANER [facility] Triglycerides 1,116(H) <150 mg/dL 06/15/2023 6:13 PM LAST CLEANER [facility] Direct Measure HDL 20(L) >=50 mg/dL 06/15/2023 6:13 PM LAST CLEANER [facility] LDL Cholesterol Calculated 06/15/2023 6:13 PM LAST CLEANER [facility] Comment:Cannot estimate LDL when triglyceride exceeds 400 mg/dL Non HDL Cholesterol 119 <130 mg/dL 06/15/2023 6:13 PM LAST CLEANER [facility] Blood BLOOD SPECIMEN / Unknown Venipuncture / Unknown 06/15/2023 10:40 AM LAST CLEANER 06/15/2023 10:40 AM LAST CLEANER Narrative [facility] - 06/15/2023 6:13 PM LAST CLEANER Cholesterol Desirable: ??<200 mg/dL Triglycerides Normal: ??Less [...] MD LAB - BLOOD ORDERABLES [facility] [address] [facility], [address] [place] [address], [facility] [phone] * (ABNORMAL) Hemoglobin A1c (06/15/2023 10:40 AM LAST CLEANER) Hemoglobin A1C 9.6(H) 0.0 - 5.6 % 06/15/2023 11:17 AM LAST CLEANER [facility] Comment: Normal <5.7% Prediabetes 5.7-6.4% ?? Diabetes 6.5% or higher Note: Adopted from ADA consensus guidelines. Blood BLOOD SPECIMEN / Unknown Venipuncture / Unknown 06/15/2023 10:40 AM LAST CLEANER 06/15/2023 10:40 AM LAST CLEANER Narrative [facility] - 06/15/2023 11:17 AM LAST CLEANER Results confirmed by repeat test. September Monika Galeana MD LAB - BLOOD ORDERABLES [facility] [address] [facility] (no room number, 1st floor of clinic) [place] [address], [facility] [phone] * (ABNORMAL) Basic metabolic panel (Ca, Cl, CO2, Creat, Gluc, K, Na, BUN) (06/15/2023 10:40 AM LAST CLEANER) Sodium 135 135 - 145 mmol/L 06/15/2023 5:59 PM LAST CLEANER [facility] Comment:Reference intervals for this test were updated on 03/15/2023 to more accurately reflect our healthy population. There may be differences in the flagging of prior results with similar values performed with this method. Interpretation of those prior results can be made in the context of the updated reference intervals. Potassium 4.5 3.4 - 5.3 mmol/L 06/15/2023 5:59 PM LAST CLEANER [facility] Chloride 103 98 - 107 mmol/L 06/15/2023 5:59 PM LAST CLEANER [facility] Carbon Dioxide (CO2) 19(L) 22 - 29 mmol/L 06/15/2023 5:59 PM LAST CLEANER [facility] Anion Gap 13 7 - 15 mmol/L 06/15/2023 5:59 PM LAST CLEANER [facility] Urea Nitrogen 10.4 6.0 - 20.0 mg/dL 06/15/2023 5:59 PM LAST CLEANER [facility] Creatinine 0.64 0.51 - 0.95 mg/dL 06/15/2023 5:59 PM LAST CLEANER [facility] GFR Estimate >90 >60 mL/min/1. 73m2 06/15/2023 5:59 PM LAST CLEANER [facility] Calcium 9.4 8.6 - 10.0 mg/dL 06/15/2023 5:59 PM LAST CLEANER [facility] Glucose 301(H) 70 - 99 mg/dL 06/15/2023 5:59 PM LAST CLEANER [facility] Blood BLOOD SPECIMEN / Unknown Venipuncture / Unknown 06/15/2023 10:40 AM LAST CLEANER 06/15/2023 10:40 AM LAST CLEANER September Monika Galeana MD LAB - BLOOD ORDERABLES [facility] [address] [facility], [address] [address] [phone] * COLOGUARD([email or web address]) (12/27/2022 10:40 AM CDT) COLOGUARD-ABSTRACT Negative Negative 2022 10:58 AM CDT [employer] (CLIA #:[id number]) Comment: NEGATIVE TEST RESULT. A negative Cologuard [...] Fischer et al, N Engl J Med 2014;370(14):1286- 1297) The normal value (reference range) for this assay is negative. COLOGUARD RE-SCREENING RECOMMENDATION: Periodic colorectal cancer screening is an important part of preventive healthcare for asymptomatic individuals at average risk for colorectal cancer. ??Following a negative Cologuard result, the [place] [employer] Society and U.S. Multi-Society Task Force screening guidelines recommend a Cologuard re-screening interval of 3 years. References: [place] [employer] Guideline for Colorectal Cancer Screening: https://www.cancer.org/cancer/sblke-cglsso-gudlzj/evvgrpvzr-iljgdycaj-cczfchd/ac s-rec ommendations.html.; Matt DK, Laura ANAYA, Bienvenido GONZALEZ, Colorectal Cancer Screening: Recommendations for Physicians and Patients from the U.S. Multi-Society Task Force on Colorectal Cancer Screening , Am J Gastroenterology 2017; 112:3041-4502. TEST DESCRIPTION: Composite algorithmic analysis of stool [...] Feng. et al, N Engl J Med 2014;370(14):4898-6598.) Cologuard may produce a false negative or false positive result (no colorectal cancer or precancerous polyp present at colonoscopy follow up). A negative Cologuard test result does not guarantee the absence of CRC or advanced adenoma (pre-cancer). The current Cologuard screening interval is every 3 years. ([place] [employer] and U.S. Multi-Society Task Force). Cologuard performance data in a 10,000 patient pivotal study using colonoscopy as the reference method can be accessed at the following location: www.MOGL/results. Additional description of the Cologuard test process, warnings and precautions can be found at www.Lion Street[employer]ta[employer] The[employer]rd.com. Stool specimen (specimen) 12/27/2022 10:40 AM CDT 12/28/2022 10:28 PM CDT September Monika Galeana MD LABORATORY [employer] [address] [place], [place] [address] [place] [address] [employer] (CLIA #:[id number]) [address] [place] [place] [address] * Albumin Random Urine Quantitative with Creat [...] control, and institution of therapy with an etuazcnsixf-xmmzccnvuj-yjiuwh (RAFAEL) inhibitor (if the patient can tolerate it). ?? Urine URINE SPECIMEN / Unknown Non-blood Collection / Unknown 12/08/2022 11:13 AM CDT 12/08/2022 12:21 PM CDT Ana Luisa Galeana MD LAB - URINE ORDERABLES [facility] [address] [facility], [address] [place] [address], [facility] [phone] * MA Screen Bilateral w/Naveed (03/12/2022 10:56 [...] - 10/03/2021 Date of last eye exam [facility] approx. 10-03-21 Patient Reported OTHER * HIV 1 and 2 Antibody (05/20/2008 8:07 AM LAST CLEANER) HIV 1&2 Antibody Negative NEG MISYS 05/20/2008 8:07 AM LAST CLEANER 05/15/2008 7:02 AM LAST CLEANER Rio Melvin MD LAB - BLOOD ORDERABL ES MISYS * Hepatitis C antibody (05/20/2008 8:07 AM LAST CLEANER) Hepatitis C Antibody Negative NEG MISYS 05/20/2008 8:07 AM LAST CLEANER 05/15/2008 7:02 AM LAST CLEANER Rio Melvin MD LAB - BLOOD ORDERABL ES MISYS from Last 3 Months or Most Recently Relevant to Health Maintenance Advance Directives For more information, please contact: [phone] * Full Code (Latest Code Status on File) Date Activated Date Inactivated Comments 04/03/2015 9:33 PM 04/07/2015 4:02 PM Care Teams Armhole Sewer Relationship Specialty Start Date [place] [address] [place] [address] PCP - General Family Practice 06/29/19 Christian Mars MD Family Practice 05/26/11 [place] [address] [place] [address] Assigned PCP 07/08/19
--- OUTSIDE RECORDS SUMMARY | 2024-01-18 02:29 | XMS_ITS | Encounter Summary ---
Author Organization [facility] Address [address] [place] [address]. [place] [address] Care Team Providers Care Exhibit Builder Name Role Phone Christian Mars MD Unavailable Unavailable Coming Ana Luisa Galeana MD Primary Care Provid er Coming Ana Luisa Galeana MD Unavailable +[phone] Crystal Araujo MD Unavailable [phone] [facility] Nan Nguyen RN Unavailable Unavailable Reason for Visit * Reason Comments Medication Refill Encounter Details Date Type Department Care Team (Late st Contact Info) Description 11/12/[address] [phone] Coming [place] Lu[place] [id number] [place] [address] [phone] Medication Refill Social History Tobacco Use Types [...] Description 01/20/2024 2:00 PM CDT Office Visit [facility] [address] [place] [address] Vidya Galeano PA-C [address] [place] [address] 03/07/2024 2:00 PM CDT Office Visit [facility] [address] [place] [address] [place] [address] [place], [place] [phone] documented as of this encounter Visit Diagnoses Diagnosis IGNACIO (generalized anxiety disorder) Generalized anxiety disorder Current mild episode of major depressive disorder, unspecified whether recurrent (H24) Menopausal syndrome (hot flashes) Symptomatic menopausal or female climacteric states documented in this encounter Additional Health Concerns Assessment Noted Time PHQ-9 Depression Total Score: 7 09/18/19 20 7:03 AM CDT documented as of this encounter Care Teams Exhibit Builder Relationship Specialty Start Date [place] [address] [place] [address] PCP - General Family Practice 06/29/19 Christian Mars MD Family Practice 05/26/11 [place] [address] [place] [address] Assigned PCP 07/08/19 Crystal Araujo MD [address] [place] [address] Assigned OBGYN Provider 04/11/2006/14 Nan Nguyen, RN 09/09/21 08/10/22 documented as of this encounter
--- OUTSIDE RECORDS SUMMARY | 2024-01-18 02:29 | XMS_ITS | Encounter Summary ---
Author Organization [facility] Address [address] [place] [address]. [place] [address] Care Team Providers Care Configuration Manager Name Role Phone Christian Mars MD Unavailable Unavailable Coming Ana Luisa Galeana MD Primary Care Provid er Coming Ana Luisa Galeana MD Unavailable [phone] Nan Nguyen RN Unavailable Unavailable Reason for Visit * Reason Comments Medication Refill Encounter Details Date Type Department Care Team (Late st Contact Info) Description 08/27/[address] [phone] Coming Ana Luisa Galeana MD [address] [place] [address] [phone] Medication Refill Social History Tobacco Use Types [...] COVID-19? No / Unsure 08/18/2020 1:10 PM PLATING TECHNICIAN documented as of this encounter Miscellaneous Notes * Telephone Encounter - Tesha Steinberg RN - 08/28/2020 12:42 PM PLATING TECHNICIAN Routing refill request to provider for review/approval because: Elevated PHQ-9 Tesha Steinberg RN [facility] -- Triage Nurse ING TECHNICIAN documented in this encounter Plan of Treatment Upcoming Encounters Date Type Department Care Team (Late st Contact Info) Description 01/20/2024 2:00 PM CDT Office Visit [facility] [address] [place] [phone] Vidya Galeano PA-C [address] [place] [phone] 03/07/2024 2:00 PM CDT Office Visit [facility] [address] [place] [phone] [place] [address] [place], [place] [phone] documented as of this encounter Visit Diagnoses Diagnosis IGNACIO (generalized anxiety disorder) Generalized anxiety disorder Current mild episode of major depressive disorder, unspecified whether recurrent (H24) documented in this encounter Additional Health Concerns Assessment Noted Time PHQ-9 Depression Total Score: 5 08/19/19 21 1:08 PM PLATING TECHNICIAN documented as of this encounter Care Teams Configuration Manager Relationship Specialty Start Date End Date Coming [place] [id number] [place] [address] [phone] PCP - General Family Practice 06/29/19 Christian Mars MD Family Practice 05/26/11 [place] [address] [place] [address] Assigned PCP 07/08/19 Nan Ngueyn, RN 09/09/21 2 documented as of this encounter
--- OUTSIDE RECORDS SUMMARY | 2024-01-18 02:29 | XMS_ITS | Encounter Summary ---
Author Organization [facility] Address [address] [place] [address]. [place] [address] Care Team Providers Care Boot And Shoe Repairman Name Role Phone Christian Mars MD Unavailable Unavailable Coming Ana Luisa Galeana MD Primary Care Provid er Coming Ana Luisa Galeaan MD Unavailable + [phone] Crystal Araujo MD Unavailable [phone] Nan Nguyen RN Unavailable Unavailable Encounter Details Date Type Department Care Team (Late st Contact Info) Description 11/29/2019 [facility] Medical Advice [address] [address] Alysia Benton MA Social History [...] Description 01/20/2024 2:00 PM CDT Office Visit [facility] [address] [place] [phone] Vidya Galeano PA-C [address] [place] [phone] 03/07/2024 2:00 PM CDT Office Visit [facility] [address] [place] [phone] [place] [address] [place], [place] [phone] documented as of this encounter Visit Diagnoses Not on filedocumented in this encounter Additional Health Concerns Assessment Noted Time PHQ-9 Depression Total Score: 4 11/30/19 20 7:04 AM CDT documented as of this encounter Care Teams Boot And Shoe Repairman Relationship Specialty Start Date [place] [address] [place], [place] [phone] PCP - General Family Practice 06/29/19 Christian Mars MD [place] Family Practice 05/26/11 [place] [address] [place] [address] Assigned PCP 07/08/19 Crystal Aruajo MD [address] [place] [address] Assigned OBGYN Provider 04/11/2006/14 Nan Nguyen, BERENICE 09/09/21 08/10/22 documented as of this encounter
--- OUTSIDE RECORDS SUMMARY | 2024-01-18 02:29 | XMS_ITS | Encounter Summary ---
Author Organization [facility] Address [address] [place] [address]. [place] [address] Care Team Providers Care Ccna Name Role Phone Christian Mars MD Unavailable Unavailable Coming Ana Luisa Galeana MD Primary Care Provid er Coming Ana Luisa Galeana MD Unavailable +- [phone] Crystal Araujo MD Unavailable [phone] [facility] Nan Nguyen RN Unavailable Unavailable Reason for Visit * Reason Comments Medication Refill Encounter Details Date Type Department Care Team (Late st Contact Info) Description 07/11/2019 Refill [facility] 6440 [place] [address] Mu Hickey MD [address] [place] [address] Medication Refill Social History Tobacco [...] PM CST Patient no longer seen at [facility], established care with new PCP. Tesah Gomez ICAL ACCOUNT EXECUTIVE documented in this encounter Plan of Treatment Upcoming Encounters Date Type Department Care Team (Late st Contact Info) Description 01/20/2024 2:00 PM CDT Office Visit [facility] [address] [place] [phone] Vidya Galeano PA-C [address] [place] [phone] 03/07/2024 2:00 PM CDT Office Visit [facility] [address] [place] [phone] [place] [address] [place], [place] [phone] documented as of this encounter Visit Diagnoses Diagnosis Type 2 diabetes mellitus without complication, without long-term current use of insulin (H) Encounter for medication refill Issue of repeat prescriptions Benign essential hypertension Essential hypertension, benign documented in this encounter Additional Health Concerns Assessment Noted Time PHQ-9 Depression Total Score: 19 020 7:02 AM CLINICAL ACCOUNT EXECUTIVE documented as of this encounter Care Teams Ccna Relationship Specialty Start Date [place] [address] [place], [place] [phone] PCP - General Family Practice 06/29/19 Christian Mars MD Family Practice 05/26/11 [place] [address] [place] [address] Assigned PCP 07/08/19 Crystal Araujo MD [address] [place] [address] Assigned OBGYN Provider 04/11/2006/14 Nan Nguyen, BERENICE 09/09/21 08/10/22 documented as of this encounter
--- OUTSIDE RECORDS SUMMARY | 2024-01-18 02:29 | XMS_ITS | Encounter Summary ---
Author Organization [facility] Address [address] [place] [address]. [place] [address] Care Team Providers Care Chief Clinical Dietitian Name Role Phone Christian Mars MD Unavailable Unavailable Coming Ana Luisa Galeana MD Primary Care Provid er Coming Ana Luisa Galeana MD Unavailable [phone] Nan Nguyen RN Unavailable Unavailable Reason for Visit * Reason Onset Date Comments Refill Request 08/27/2020 LORazepam (ATIVA N) 1 MG tablet Encounter Details Date Type Department Care Team (Late st Contact Info) Description 08/27/[address] [address] Coming [place] Luisa [place] [id number] [place] [address] [phone] Refill Request (LORazepam (ATIVAN) 1 MG tablet) [...] COVID-19? No / Unsure 08/18/2020 1:10 PM VOCATIONAL CHILDCARE TEACHER documented as of this encounter Miscellaneous Notes * Telephone Encounter - Tesha Steinberg RN - 08/27/2020 12:31 PM VOCATIONAL CHILDCARE TEACHER Routing refill request to provider for review/approval because: Drug not on the [facility] refill protocol Tesha Steinberg RN [facility] -- Triage Nurse TIONAL CHILDCARE TEACHER documented in this encounter Plan of Treatment Upcoming Encounters Date Type Department Care Team (Late st Contact Info) Description 01/20/2024 2:00 PM CDT Office Visit [facility] [address] [place] [phone] Vidya Galeano PA-C [address] [place] [phone] 03/07/2024 2:00 PM CDT Office Visit [facility] [address] [place] [address] [place] [address] [place], [place] [phone] documented as of this encounter Visit Diagnoses Diagnosis Anxiety attack Panic disorder without agoraphobia documented in this encounter Additional Health Concerns Assessment Noted Time PHQ-9 Depression Total Score: 5 08/19/19 21 1:08 PM VOCATIONAL CHILDCARE TEACHER documented as of this encounter Care Teams Chief Clinical Dietitian Relationship Specialty Start Date End Date Coming [place] [id number] [place] [address] [phone] PCP - General Family Practice 06/29/19 Christian Mars MD Family Practice 05/26/11 [place] [address] [place] [address] Assigned PCP 07/08/19 Nan Nguyen RN 09/09/21 08/10/22 documented as of this encounter
--- OUTSIDE RECORDS SUMMARY | 2024-01-18 02:29 | XMS_ITS | Encounter Summary ---
Author Organization [facility] Address [address] [place] [address]. [place] [address] Care Team Providers Care Senior Care Provider Name Role Phone Christian Mars MD Unavailable Unavailable Coming Ana Luisa Galeana MD Primary Care Provid er Coming Kervin Ana Luisa Monika DOMINGO Unavailable +- [phone] Crystal Araujo MD Unavailable [phone] [facility] Nan Nguyen RN Unavailable Unavailable Reason for Visit * Reason Comments Medication Refill Zolpidem. NAYELI with l abs 11/21/19. Not [facility] pt. Encounter Details Date Type Department Care Team (Late st Contact Info) Description 01/07/2020 Refill [facility] [address] [place] [address] Mu Hickey MD 6440 [place] [address] Medication Refill (Zolpidem. NAYELI with labs [...] 01/07/2020 2:38 PM CDT Not [place] [facility] * Telephone Encounter - Cyndee Metzger CMA - 01/07/2020 2:14 PM CDT Zolpidem. NAYELI with labs 11/21/19. Not [facility] pt. documented in this encounter Plan of Treatment Upcoming Encounters Date Type Department Care Team (Late st Contact Info) Description 01/20/2024 2:00 PM CDT Office Visit [facility] [address] [place] [address] Vidya Galeano PA-C [address] [place] [address] 03/07/2024 2:00 PM CDT Office Visit [facility] [address] [place] [address] [place] [address] [place] [address] documented as of this encounter Visit Diagnoses Not on filedocumented in this encounter Additional Health Concerns Assessment Noted Time PHQ-9 Depression Total Score: 8 12/29/19 20 7:11 AM CDT documented as of this encounter Care Teams Senior Care Provider Relationship Specialty Start Date [place] [address] [place], [place] [phone] PCP - General Family Practice 06/29/19 Christian Mars MD Family Practice 05/26/11 [place] [address] [place] [address] Assigned PCP 07/08/19 Crystal Araujo MD [address] [place] [address] Assigned OBGYN Provider 04/11/2006/14 Nan Nguyen, RN 09/09/21 08/10/22 documented as of this encounter
--- OUTSIDE RECORDS SUMMARY | 2024-01-18 02:29 | XMS_ITS | Encounter Summary ---
Author Organization [facility] Address [address] [place] [address] Care Team Providers Care Hem Marker Name Role Phone Christian Mars MD Unavailable Unavailable Mu Hickey MD Primary Care Provider + [phone] Mu Hickey MD Unavailable [phone] Coming Ana Luisa Galeana MD Primary Care Provid er Coming Ana Luisa Galeana MD Unavailable + [phone] Crystal Araujo MD Unavailable [phone] Nan Nguyen RN Unavailable Unavailable Encounter [...] Description 01/20/2024 2:00 PM CDT Office Visit [address] [phone] Vidya Galeano PA-C [address] [place] [phone] 03/07/2024 2:00 PM CDT Office Visit [facility] [address] [place] [phone] [place] [address] [place], [place] [phone] documented as of this encounter Visit Diagnoses Not on filedocumented in this encounter Additional Health Concerns Assessment Noted Time PHQ-9 Depression Total Score: 19 020 7:02 AM CHART CALCULATOR documented as of this encounter Care Teams Hem Marker Relationship Specialty Start Date End Date Mu Hickey MD [address] [phone] PCP - General Family Practice 05/25/18 06/28/19 [place] [address] [place] [address] PCP - General Family Practice 06/29/19 Christian Mars MD Family Practice 05/26/11 Mu Hickey MD [address] [phone] Assigned PCP 06/11/18 07/07/19 [place] [address] [place] [address] Assigned PCP 07/08/19 Crystal Araujo MD [facility] [place] [address] Assigned OBGYN Provider 04/11/2006/14 Nan Nguyen, BERENICE 09/09/21 08/10/22 documented as of this encounter
--- OUTSIDE RECORDS SUMMARY | 2024-01-18 02:29 | XMS_ITS | Encounter Summary ---
Author Organization [facility] Address [address] [place] [address] Care Team Providers Care Director Of Vendor Management Name Role Phone Christian Mars MD Unavailable Unavailable Coming Ana Luisa Galeana MD Primary Care Provid er Coming Ana Luisa Galeana MD Unavailable +- [phone] Crystal Araujo MD Unavailable [phone] Nan Nguyen RN Unavailable Unavailable Reason for Visit * Reason Onset Date Comments Panel Management 12/28/2019 depression scre ening Encounter Details Date Type Department Care Team (Late st Contact Info) Description 12/28/2019 [facility] [address] [address] Eleonora Almazan CMA Panel Management (depression screening) [...] - 12/31/2019 2:38 PM CDT Sent patient [employer] message, instructed to call clinic if needed [...] self-harm thoughts Not at all PHQ-9 via MyChart TOTAL SCORE-----> 8 (Mild depression) Difficulty at work, home, or with people Not difficult at all Score >5, will route to triage Eleonora Almazan/MERCEDES [facility] documented in this encounter Plan of Treatment Upcoming Encounters Date Type Department Care Team (Late st Contact Info) Description 01/20/2024 2:00 PM CDT Office Visit [facility] [address] [place] [phone] Vidya Galeano PA-C [address] [place] [phone] 03/07/2024 2:00 PM CDT Office Visit [facility] [address] [place] [phone] [place] [address] [place], [place] [phone] documented as of this encounter Visit Diagnoses Not on filedocumented in this encounter Additional Health Concerns Assessment Noted Time PHQ-9 Depression Total Score: 8 12/29/19 20 7:11 AM CDT documented as of this encounter Care Teams Director Of Vendor Management Relationship Specialty Start Date [place] [address] [place] [address] PCP - General Family Practice 06/29/19 Christian Mars MD Family Practice 05/26/11 [place] [address] [place] [address] Assigned PCP 07/08/19 Crystal Araujo MD [address] [place] [address] Assigned OBGYN Provider 04/11/2006/14 Nan Nguyen, BERENICE 09/09/21 08/10/22 documented as of this encounter
--- OUTSIDE RECORDS SUMMARY | 2024-01-18 02:29 | XMS_ITS | Encounter Summary ---
Author Organization [facility] Address [address] [place] [address]. [place] [address] Care Team Providers Care Java Lead Name Role Phone Christian Mars MD Unavailable Unavailable Mu Hickey MD Primary Care Provider + [phone] Mu Hickey MD Unavailable [phone] Coming Ana Luisa Galeana MD Primary Care Provid er Coming Ana Luisa Galeana MD Unavailable + [phone] Crystal Araujo MD Unavailable [phone] Nan Nguyen RN Unavailable Unavailable Encounter Details Date Type Department Care Team (Late st Contact Info) Description 06/18/2019 [facility] Medical Advice [facility] 6440 [place] [address] Mu Hickey MD [address] [place] [address] Social History Tobacco Use Types Packs/Day [...] Description 01/20/2024 2:00 PM CDT Office Visit [facility] [address] [place] [phone] Vidya Galeano PA-C [address] [place] [phone] 03/07/2024 2:00 PM CDT Office Visit [facility] [address] [place] [phone] [place] [address] [place], [place] [phone] documented as of this encounter Visit Diagnoses Not on filedocumented in this encounter Additional Health Concerns Assessment Noted Time PHQ-9 Depression Total Score: 12 018 3:15 PM CHAIN MACHINE OPERATOR documented as of this encounter Care Teams Java Lead Relationship Specialty Start Date End Date Mu Hickey MD [address] [phone] PCP - General Family Practice 05/25/18 06/28/19 [place] [address] [place] [address] PCP - General Family Practice 06/29/19 Christian Mars MD Family Practice 05/26/11 Mu Hickey MD [address] [phone] Assigned PCP 06/11/18 07/07/19 [place] [address] [place] [address] Assigned PCP 07/08/19 Crystal Araujo MD [address] [place] [address] [address] Assigned OBGYN Provider 04/11/2006/14 Nan Nguyen, BERENICE 09/09/21 08/10/22 documented as of this encounter
--- OUTSIDE RECORDS SUMMARY | 2024-01-18 02:29 | XMS_ITS | Encounter Summary ---
Author Organization [facility] Address [address] [place] [address] Care Team Providers Care Clinical Assoc Name Role Phone Christian Mars MD Unavailable Unavailable Coming Ana Luisa Galeana MD Primary Care Provid er Coming Ana Luisa Galeana MD Unavailable + [phone] Crystal Araujo MD Unavailable [phone] [facility] Nan Nguyen RN Unavailable Unavailable Reason for Visit * Reason Comments Medication Refill Encounter Details Date Type Department Care Team (Late st Contact Info) Description 01/17/[address] [address] Ryan Galvan MD Medication Refill [...] 01/17/2020 9:46 AM CDT Prescription approved per [facility] Refill Protocol. Cathi Gonzales, RN documented in this encounter Plan of Treatment Upcoming Encounters Date Type Department Care Team (Late st Contact Info) Description 01/20/2024 2:00 PM CDT Office Visit [facility] [address] [place] [address] Vidya Galeano PA-C [address] [place] [address] 03/07/2024 2:00 PM CDT Office Visit [facility] [address] [place] [address] [place] [address] [place], [place] [phone] documented as of this encounter Visit Diagnoses Diagnosis Type 2 diabetes mellitus without complication, without long-term current use of insulin (H) documented in this encounter Additional Health Concerns Assessment Noted Time PHQ-9 Depression Total Score: 8 12/29/19 20 7:11 AM CDT documented as of this encounter Care Teams Clinical Assoc Relationship Specialty Start Date [place] [address] [place], [place] [phone] PCP - General Family Practice 06/29/19 Christian Mars MD Family Practice 05/26/11 [place] [address] [place], [place] [phone] Assigned PCP 07/08/19 Crystal Araujo MD [address] [place] [address] Assigned OBGYN Provider 04/11/2006/14 Nan Nguyen, BERENICE 09/09/21 08/10/22 documented as of this encounter
--- OUTSIDE RECORDS SUMMARY | 2024-01-18 02:29 | XMS_ITS | Encounter Summary ---
Author Organization [facility] Address [address] [place] [address]. [place] [address] Care Team Providers Care It Operations Specialist Name Role Phone Christian Mars MD Unavailable Unavailable Coming Ana Luisa Galeana MD Primary Care Provid er Coming Ana Luisa Galeana MD Unavailable +- [phone] Crystal Araujo MD Unavailable [phone] [facility] Nan Nguyen RN Unavailable Unavailable Reason for Visit * Reason Comments Medication Refill Encounter Details Date Type Department Care Team (Late st Contact Info) Description 01/11/2020 Refill [facility] 6440 [place] [address] Mu Hickey MD 6440 [place] [address] Medication Refill Social History Tobacco [...] * Telephone Encounter - Yulissa Washington - 01/11/2020 5:19 PM CDT NO LONGER PT [place] [facility] documented in this encounter Plan of Treatment Upcoming Encounters Date Type Department Care Team (Late st Contact Info) Description 01/20/2024 2:00 PM CDT Office Visit [facility] [address] [place] [address] Vidya Galeano PA-C [address] [place] [phone] 03/07/2024 2:00 PM CDT Office Visit [facility] [address] [place] [phone] [place] [address] [place], [place] [phone] documented as of this encounter Visit Diagnoses Diagnosis Encounter for medication refill Issue of repeat prescriptions documented in this encounter Additional Health Concerns Assessment Noted Time PHQ-9 Depression Total Score: 8 12/29/19 20 7:11 AM CDT documented as of this encounter Care Teams It Operations Specialist Relationship Specialty Start Date [place] [address] [place], [place] [phone] PCP - General Family Practice 06/29/19 Christian Mars MD Family Practice 05/26/11 [place] [address] [place] [address] Assigned PCP 07/08/19 Crystal Araujo MD [address] [address] Assigned OBGYN Provider 04/11/2006/14 Nan Nguyen RN 09/09/21 08/10/22 documented as of this encounter
--- OUTSIDE RECORDS SUMMARY | 2024-01-18 02:29 | XMS_ITS | Encounter Summary ---
Author Organization [facility] Address [address] [place] [address]. [place] [address] Care Team Providers Care Fairing Man Name Role Phone Christian Mars MD Unavailable Unavailable Coming Ana Luisa Galeana MD Primary Care Provid er Coming Ana Luisa Galeana MD Unavailable +- [phone] Nan Nguyen RN Unavailable Unavailable Reason for Visit * Reason Comments Medication Refill Encounter Details Date Type Department Care Team (Late st Contact Info) Description 08/07/[address] [address] Ryan Galvan MD Medication Refill [...] in 2 weeks: 08/18/20. Please address refill TER SLOTTER HELPER documented in this encounter Plan of Treatment Upcoming Encounters Date Type Department Care Team (Late st Contact Info) Description 01/20/2024 2:00 PM CDT Office Visit [facility] [address] [place] [phone] Vidya Galeano PA-C [address] [place] [address] 03/07/2024 2:00 PM CDT Office Visit [facility] [address] [place] [phone] [place] [address] [place], [place] [phone] documented as of this encounter Visit Diagnoses Diagnosis Encounter for medication refill Issue of repeat prescriptions Benign essential hypertension Essential hypertension, benign documented in this encounter Additional Health Concerns Assessment Noted Time PHQ-9 Depression Total Score: 4 07/22/19 21 7:06 AM PRINTER SLOTTER HELPER documented as of this encounter Care Teams Fairing Man Relationship Specialty Start Date [place] [address] [place] [address] PCP - General Family Practice 06/29/19 Christian Mars MD Family Practice 05/26/11 [place] [address] [place] [address] Assigned PCP 07/08/19 Nan Nguyen, RN 09/09/21 2 documented as of this encounter
--- OUTSIDE RECORDS SUMMARY | 2024-01-18 02:29 | XMS_ITS | Encounter Summary ---
Author Organization [place] Address [address] [place] [address]. [place] [address] Care Team Providers Care Mixing Machine Operator Name Role Phone Christian Mars MD Unavailable Unavailable Mu Hickey MD Primary Care Provider + [phone] Mu Hickey MD Unavailable +[phone] Coming Ana Luisa Galeana MD Primary Care Provid er Coming Ana Luisa Galeana MD Unavailable + [phone] Crystal Araujo MD Unavailable +-[phone] Nan Nguyen RN Unavailable Unavailable Reason for Visit * Reason Comments Medication Refill METFORMIN HCL Encounter Details Date Type Department Care Team (Late st Contact Info) Description 12/05/2018 Refill [facility] [address] [place] [address] Mu Hickey MD [address] [place] [phone] Medication Refill (METFORMIN HCL ) Social [...] encounter Miscellaneous Notes * Telephone Encounter - Blanca Nevarez CMA - 12/05/2018 8:15 AM CDT METFORMIN HCL NAYELI 06/06/18 Last Labs 06/06/18 Lab Results Component Value Date A1C 10.9 06/06/2018 A1C 7.1 09/05/2017 A1C 9.0 05/25/2017 A1C 6.5 09/22/2016 A1C 5.5 02/11/2016 documented in this encounter Plan of Treatment Upcoming Encounters Date Type Department Care Team (Late st Contact Info) Description 01/20/2024 2:00 PM CDT Office Visit [facility] [address] [place] [phone] Vidya Galeano PA-C [address] [place] [address] 03/07/2024 2:00 PM CDT Office Visit [facility] [address] [place] [address] [place] [address] [place], [place] [phone] documented as of this encounter Visit Diagnoses Diagnosis Type 2 diabetes mellitus without complication, without long-term current use of insulin (H)- Primary Diabetes mellitus, type 2 (H) Type II or unspecified type diabetes mellitus without mention of complication, not stated as uncontrolled documented in this encounter Additional Health Concerns Assessment Noted Time PHQ-9 Depression Total Score: 12 018 3: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 documented as of this encounter Care Teams Mixing Machine Operator Relationship Specialty Start Date End Date Mu Hickey MD [address] [phone] PCP - General Family Practice 05/25/18 06/28/19 [place] [address] [place] [address] PCP - General Family Practice 06/29/19 Christian Mars MD [place] Family Practice 05/26/11 Mu Hickey MD [address] [place] [address] Assigned PCP 06/11/18 07/07/19 [place] [address] [place] [address] Assigned PCP 07/08/19 Crystal Araujo MD [address] [place] [address] Assigned OBGYN Provider 04/11/2006/14 Nan Nguyen, BERENICE 09/09/21 08/10/22 documented as of this encounter
--- OUTSIDE RECORDS SUMMARY | 2024-01-18 02:29 | XMS_ITS | Encounter Summary ---
Author Organization [facility] Address [address] [place] [address]. [place] [address] Care Team Providers Care Office Rep Name Role Phone Chrisitan Mars MD Unavailable Unavailable Coming Ana Luisa Galeana MD Primary Care Provid er Coming Ana Luisa Galeana MD Unavailable +[phone] Nan Nguyen RN Unavailable Unavailable Reason for Visit * Reason Comments Medication Refill Encounter Details Date Type Department Care Team (Late st Contact Info) Description 09/24/[address] [phone] Coming Ana Luisa Galeana MD [address] [place] [phone] Medication Refill Social History Tobacco Use Types [...] Description 01/20/2024 2:00 PM CDT Office Visit [facility] [address] [place] [address] Vidya Galeano PA-C [address] [place] [address] 03/07/2024 2:00 PM CDT Office Visit [facility] [address] [place] [address] [place] [address] [place], [place] [phone] documented as of this encounter Visit Diagnoses Diagnosis Uncontrolled type 2 diabetes mellitus with hyperglycemia (H) Encounter for medication refill Issue of repeat prescriptions documented in this encounter Additional Health Concerns Assessment Noted Time PHQ-9 Depression Total Score: 5 08/19/19 21 1:08 PM 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
--- OUTSIDE RECORDS SUMMARY | 2024-01-18 02:29 | XMS_ITS | Encounter Summary ---
Author Organization [facility] Address [address] [place] [address]. [place] [address] Care Team Providers Care Head Bucker Name Role Phone Christian Mars MD Unavailable Unavailable Coming Ana Luisa Galeana MD Primary Care Provid er Coming Ana Luisa Galeana MD Unavailable +[phone] Crystal Araujo MD Unavailable [phone] [facility] Nan Nguyen RN Unavailable Unavailable Reason for Visit * Reason Onset Date Comments Refill Request 05/14/2020 propranolol (IND ERAL) 20 MG tablet Encounter Details Date Type Department Care Team (Late st Contact Info) Description 05/14/[address] [phone] Coming [place] [phone] [place] [phone] Refill Request (propranolol (INDERAL) 20 MG tablet) [...] visit on 06/02/[address] Fabian Galeana. O TECH * Telephone Encounter - Christian Boyce - 05/19/2020 9:27 AM CST Left message for patient to call back. O TECH * Telephone Encounter - Ana Luisa Briones MD - 05/17/2020 8:08 PM ORTHO TECH Needs appointment for additional refills O TECH * Telephone Encounter - Tesha Steinberg RN - 05/16/2020 7:50 AM ORTHO TECH Routing refill request to provider for review/approval because: Elevated BP Tesha Steinberg RN [facility] -- Triage Nurse O TECH documented in this encounter Plan of Treatment Upcoming Encounters Date Type Department Care Team (Late st Contact Info) Description 01/20/2024 2:00 PM CDT Office Visit [facility] [address] [place] [phone] Vidya Galeano PA-C [address] [place] [phone] 03/07/2024 2:00 PM CDT Office Visit [facility] [address] [place] [phone] Ana Luisa [place]iones [place] [address] [place] [phone] documented as of this encounter Visit Diagnoses Diagnosis Encounter for medication refill Issue of repeat prescriptions documented in this encounter Additional Health Concerns Assessment Noted Time PHQ-9 Depression Total Score: 8 12/29/19 20 7:11 AM CDT documented as of this encounter Care Teams Head Bucker Relationship Specialty Start Date [place] [address] [place] [address] PCP - General Family Practice 06/29/19 Christian Mars MD [place] Family Practice 05/26/11 [place] [address] [place] [address] Assigned PCP 07/08/19 Crystal Araujo MD [address] [place] [address] Assigned OBGYN Provider 04/11/2006/14 Nan Nguyen, RN 09/09/21 08/10/22 documented as of this encounter
--- OUTSIDE RECORDS SUMMARY | 2024-01-18 02:30 | XMS_ITS | Encounter Summary ---
Author Organization [facility] Address [address] [place] [address]. [place] [address] Care Team Providers Care Physician Office Clin Asst Name Role Phone Christian Mars MD Unavailable Unavailable Christian Mars MD Primary Care Provider Unava ilable System, Provider Not In Primary Care Provider Un available Mu Hickey MD Primary Care Provider + [phone] Mu Hickey MD Unavailable [phone] Coming Ana Luisa Galeana MD Primary Care Provid er Coming Ana Luisa Galeana MD Unavailable +- [phone] Crystal Araujo MD Unavailable +[phone] Nan Maier RN Unavailable Unavailable Reason for Visit * Reason Comments Medication Refill HCTZ & Inderal - las t Ov-04-14-15 last labs 04-07-15 @ hospital encounter Encounter Details Date Type Department Care Team (Late st Contact Info) Description 05/29/2015 Refill [facility] [address] [place] [address] Darien Saravia MD XXX RETIRED XXX [address] [place] [address] Medication Refill (HCTZ & Inderal - [...] AM CST HCTZ & Inderal - last -04-14-15 last labs 04-07-15 @ hospital encounter Bernice Dawn MA May 29, 2015 8:08 AM T SUPERINTENDENT CAUSTIC CRESYLATE documented in this encounter Plan of Treatment Upcoming Encounters Date Type Department Care Team (Late st Contact Info) Description 01/20/2024 2:00 PM CDT Office Visit [facility] [address] [place] [phone] Vidya Galeano PA-C [address] [place] [phone] 03/07/2024 2:00 PM CDT Office Visit [facility] [address] [place] [phone] [place] [address] [place], [place] [phone] documented as of this encounter Visit Diagnoses Diagnosis Encounter for medication refill- Primary Issue of repeat prescriptions documented in this encounter Care Teams Physician Office Clin Asst Relationship Specialty Start Date End Date Christian Mars MD PCP - General Family Practice 07/30/11 10/25/17 System, Provider Not In PCP - General Clinic 10/26/17 05/24/18 Mu Hickey MD [address] [phone] PCP - General Family Practice 05/25/18 06/28/19 [place] [address] [place] [address] PCP - General Family Practice 06/29/19 Christian Mars MD [place] Family Practice 05/26/11 Mu Hickey MD [address] [phone] Assigned PCP 06/11/18 07/07/19 [place] [address] [place] [address] Assigned PCP 07/08/19 Crystal Araujo MD [address] [place] [address] Assigned OBGYN Provider 04/11/2006/14 Nan Nguyen RN 09/09/21 08/10/22 documented as of this encounter
--- OUTSIDE RECORDS SUMMARY | 2024-01-18 02:30 | XMS_ITS | Encounter Summary ---
Author Organization [place] [facility] Address [address] [place] [address] Care Team Providers Care Shake Backboard Notcher Name Role Phone Christian Mars MD Unavailable Unavailable System, Provider Not In Primary Care Provider Un available Mu Hickey MD Primary Care Provider + [phone] Mu Hickey MD Unavailable +[phone] Coming Ana Luisa Galeana MD Primary Care Provid er Coming Ana Luisa Galeana MD Unavailable + [phone] Crystal Araujo MD Unavailable [phone] [facility] Nan Nguyen RN Unavailable Unavailable Reason for Visit * Reason Comments Medication Refill 2 med refills--last visit 08-26-17 Encounter Details Date Type Department Care Team (Late st Contact Info) Description 11/21/[address] [phone] Christian Mars MD INACTIVE SINCE 05/19/2019 Medication [...] Description 01/20/2024 2:00 PM CDT Office Visit [facility] [address] [place] [phone] Vidya Galeano PA-C [address] [place] [address] 03/07/2024 2:00 PM CDT Office Visit [facility] [address] [place] [address] [place] [address] [place], [place] [phone] documented as of this encounter Visit Diagnoses Diagnosis Diabetes mellitus, type 2 (H) Type II or unspecified type diabetes mellitus without mention of complication, not stated as uncontrolled Encounter for medication refill Issue of repeat prescriptions documented in this encounter Care Teams Shake Backboard Notcher Relationship Specialty Start Date End Date System, Provider Not In PCP - General Clinic 10/26/17 05/24/18 Mu Hickey MD [address] [phone] PCP - General Family Practice 05/25/18 06/28/19 [place] [address] [place], [place] [phone] PCP - General Family Practice 06/29/19 Christian Mars MD Family Practice 05/26/11 Mu Hickey MD [address] [phone] Assigned PCP 06/11/18 07/07/19 [place] [address] [place] [address] Assigned PCP 07/08/19 Crystal Araujo MD [address] [place] [address] Assigned OBGYN Provider 04/11/2006/14 Nan Nguyen, BERENICE 09/09/21 08/10/22 documented as of this encounter
--- OUTSIDE RECORDS SUMMARY | 2024-01-18 02:30 | XMS_ITS | Encounter Summary ---
Author Organization [facility] Address [address] [place] [address] Care Team Providers Care Appeals Representative Name Role Phone Christian Mars MD Unavailable Unavailable Christian Mars MD Primary Care Provider Unava ilable System, Provider Not In Primary Care Provider Un available Mu Hickey MD Primary Care Provider Mu Hickey MD Unavailable [phone] Coming Ana Luisa Galeana MD Primary Care Provid er Coming Ana Luisa Galeana MD Unavailable + [phone] Crystal Araujo MD Unavailable +[phone] [facility] Nan Nguyen RN Unavailable Unavailable Reason for Visit * Reason Comments Medication Refill Lorazepam, last OV 1 08/12/14 and no f/u Encounter Details Date Type Department Care Team (Late st Contact Info) Description 09/11/[address] [address] Christian Mars MD INACTIVE SINCE [...] Office Visit [facility] [address] [place] [phone] Vidya Galeano PA-C [address] [place] [phone] 03/07/2024 2:00 PM CDT Office Visit [facility] [address] [place] [phone] [place] [address] [place], [place] [phone] documented as of this encounter Visit Diagnoses Diagnosis Refill clinic medication management patient- Primary documented in this encounter Care Teams Appeals Representative Relationship Specialty Start Date End Date Christian Mars MD PCP - General Family Practice 07/30/11 10/25/17 System, Provider Not In PCP - General Clinic 10/26/17 05/24/18 Mu Hickey MD [address] [place] [address] PCP - General Family Practice 05/25/18 06/28/19 [place] [address] [place] [address] PCP - General Family Practice 06/29/19 Christian Mars MD [place] Family Practice 05/26/11 Mu Hickey MD [address] [place] [phone] Assigned PCP 06/11/18 07/07/19 [place] [address] [facility] [place] [address] Assigned PCP 07/08/19 Crystal Araujo MD [address] [place] [address] Assigned OBGYN Provider 04/11/2006/14 Nan Nguyen, BERENICE 09/09/21 08/10/22 documented as of this encounter
--- OUTSIDE RECORDS SUMMARY | 2024-01-18 02:30 | XMS_ITS | Encounter Summary ---
Author Organization [facility] Address [address] [place] [address] Care Team Providers Care Certification Technician Name Role Phone Christian Mars MD Unavailable Unavailable Christian Mars MD Primary Care Provider Unava ilable System, Provider Not In Primary Care Provider Un available Mu Hickey MD Primary Care Provider + [phone] Mu Hickey MD Unavailable +[phone] Coming Ana Luisa Galeana MD Primary Care Provid er Coming Ana Luisa Galeana MD Unavailable + [phone] Crystal Araujo MD Unavailable +[phone] [facility] Nan Nguyen RN Unavailable Unavailable Reason for Visit * Reason Comments Medication Refill Encounter Details Date Type Department Care Team (Late st Contact Info) Description 03/30/[address] [phone] Christian Mars MD INACTIVE SINCE 05/19/2019 Medication [...] Description 01/20/2024 2:00 PM CDT Office Visit [facility] [address] [place] [phone] Vidya Galeano PA-C [address] [place] [address] 03/07/2024 2:00 PM CDT Office Visit [facility] [address] [place] [address] [place] [address] [place], [place] [phone] documented as of this encounter Visit Diagnoses Diagnosis Encounter for medication refill- Primary Issue of repeat prescriptions documented in this encounter Care Teams Certification Technician Relationship Specialty Start Date End Date Christian Mars MD PCP - General Family Practice 07/30/11 10/25/17 System, Provider Not In PCP - General Clinic 10/26/17 05/24/18 Mu Hickey MD [address] [phone] PCP - General Family Practice 05/25/18 06/28/19 [place] [address] [place], [place] [phone] PCP - General Family Practice 06/29/19 Christian Mars MD [facility] Practice 05/26/11 Mu Hickey MD [address] [phone] Assigned PCP 06/11/18 07/07/19 [place] [address] [place] [address] Assigned PCP 07/08/19 Crystal Araujo MD [address] [place] [address] Assigned OBGYN Provider 04/11/2006/14 Nan Nguyen, BERENICE 09/09/21 08/10/22 documented as of this encounter
--- OUTSIDE RECORDS SUMMARY | 2024-01-18 02:30 | XMS_ITS | Encounter Summary ---
Author Organization [facility] Address [address] [place] [address] Care Team Providers Care Radio Tester Name Role Phone Christian Mars MD Unavailable Unavailable Christian Mars MD Primary Care Provider Unava ilable System, Provider Not In Primary Care Provider Un available Mu Hickey MD Primary Care Provider + [phone] Mu Hickey MD Unavailable +[phone] Coming Ana Luisa Galeana MD Primary Care Provid er Coming Ana Luisa Galeana MD Unavailable + [phone] Crystal Araujo MD Unavailable +[phone] Nan Maier RN Unavailable Unavailable Reason for Visit * Reason Comments Medication Refill atrovastatin last OV - 05/28/16 last lipid 06/11/2015-due with no appt scheduled Encounter Details Date Type Department Care Team (Late st Contact Info) Description 08/12/[address] [address] Christian Mars MD INACTIVE SINCE [...] 318* 2256* 846* CHOLHDLRATIO -- 12.7* 14.9* 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 documented in this encounter Plan of Treatment Upcoming Encounters Date Type Department Care Team (Late st Contact Info) Description 01/20/2024 2:00 PM CDT Office Visit [facility] [address] [place] [phone] Vidya Galeano PA-C [address] [place] [phone] 03/07/2024 2:00 PM CDT Office Visit [facility] [address] [place] [phone] [place] [address] [place], [place] [phone] documented as of this encounter Visit Diagnoses Diagnosis Pure hyperglyceridemia- Primary documented in this encounter Care Teams Radio Tester Relationship Specialty Start Date End Date Christian Mars MD PCP - General Family Practice 07/30/11 10/25/17 System, Provider Not In PCP - General Clinic 10/26/17 05/24/18 Mu Hickey MD [address] [place] [phone] PCP - General Family Practice 05/25/18 06/28/19 [place] [address] [place] [address] PCP - General Family Practice 06/29/19 Christian Mars MD [facility] Practice 05/26/11 Mu Hickey MD [address] [phone] Assigned PCP 06/11/18 07/07/19 [place] [address] [place] [address] Assigned PCP 07/08/19 Crystal Araujo MD [address] [place] [address] Assigned OBGYN Provider 04/11/2006/14 Nan Nguyen, BERENICE 09/09/21 08/10/22 documented as of this encounter
--- OUTSIDE RECORDS SUMMARY | 2024-01-18 02:30 | XMS_ITS | Encounter Summary ---
Author Organization [facility] Address [address] [place] [address] Care Team Providers Care Ekg Technician Name Role Phone Christian Mars MD Unavailable Unavailable Christian Mars MD Primary Care Provider Unava ilable System, Provider Not In Primary Care Provider Un available Mu Hickey MD Primary Care Provider + [phone] Mu Hickey MD Unavailable +[phone] Coming Ana Luisa Galeana MD Primary Care Provid er Coming Ana Luisa Galeana MD Unavailable + [phone] Crystal Araujo MD Unavailable +[phone] [facility] Nan Nguyen RN Unavailable Unavailable Reason for Visit * Reason Comments Medication Refill Encounter Details Date Type Department Care Team (Late st Contact Info) Description 03/22/[address] [phone] Christian Mars MD INACTIVE SINCE 05/19/2019 Medication [...] Description 01/20/2024 2:00 PM CDT Office Visit [facility] [address] [place] [phone] Vidya Galeano PA-C [address] [place] [address] 03/07/2024 2:00 PM CDT Office Visit [facility] [address] [place] [address] [place] [address] [place], [place] [phone] documented as of this encounter Visit Diagnoses Diagnosis Encounter for medication refill- Primary Issue of repeat prescriptions documented in this encounter Care Teams Ekg Technician Relationship Specialty Start Date End Date Christian Mars MD PCP - General Family Practice 07/30/11 10/25/17 System, Provider Not In PCP - General Clinic 10/26/17 05/24/18 Mu Hickey MD [address] [phone] PCP - General Family Practice 05/25/18 06/28/19 [place] [address] [place], [place] [phone] PCP - General Family Practice 06/29/19 Christian Mars MD [facility] 05/26/11 Mu Hickey MD [address] [phone] Assigned PCP 06/11/18 07/07/19 [place] [address] [place] [address] Assigned PCP 07/08/19 Crystal Araujo MD [address] [place] [address] Assigned OBGYN Provider 04/11/2006/14 Nan Nguyen, BERENICE 09/09/21 08/10/22 documented as of this encounter
--- OUTSIDE RECORDS SUMMARY | 2024-01-18 02:30 | XMS_ITS | Encounter Summary ---
Author Organization [place] Address [address] [place] [address] Care Team Providers Care Parts Representative Name Role Phone Christian Mars MD Unavailable Unavailable Christian Mars MD Primary Care Provider Unava ilable System, Provider Not In Primary Care Provider Un available Mu Hickey MD Primary Care Provider + [phone] Mu Hickey MD Unavailable +[phone] Coming Ana Luisa Galeana MD Primary Care Provid er Coming Ana Luisa Galeana MD Unavailable + [phone] Crystal Araujo MD Unavailable +-[phone] Nan Maier RN Unavailable Unavailable Reason for Visit * Reason Comments Medication Refill Last OV 09/22/16 Encounter Details Date Type Department Care Team (Late st Contact Info) Description 10/05/[address] [address] Christian Mars MD INACTIVE SINCE [...] Description 01/20/2024 2:00 PM CDT Office Visit [facility] [address] [place] [phone] Vidya Galeano PA-C [address] [place] [address] 03/07/2024 2:00 PM CDT Office Visit [facility] [address] [place] [address] [place] [address] [place] [address] documented as of this encounter Visit Diagnoses Diagnosis Encounter for medication refill Issue of repeat prescriptions documented in this encounter Care Teams Parts Representative Relationship Specialty Start Date End Date Christian Mars MD PCP - General Family Practice 07/30/11 10/25/17 System, Provider Not In PCP - General Clinic 10/26/17 05/24/18 Mu Hickey MD [address] [place] [phone] PCP - General Family Practice 05/25/18 06/28/19 [place] [address] [place] [address] PCP - General Family Practice 06/29/19 Christian Mars MD [facility] 05/26/11 Mu Hickey MD [address] [place] [phone] Assigned PCP 06/11/18 07/07/19 [place] [address] [place] [address] Assigned PCP 07/08/19 Crystal Araujo MD [address] [place] [address] Assigned OBGYN Provider 04/11/2006/14 Nan Nguyen, BERENICE 09/09/21 08/10/22 documented as of this encounter
--- OUTSIDE RECORDS SUMMARY | 2024-01-18 02:30 | XMS_ITS | Encounter Summary ---
Author Organization [facility] Address [address] [place] [address] Care Team Providers Care Pressing Machine Operator Name Role Phone Christian Mars MD Unavailable Unavailable Christian Mars MD Primary Care Provider Unava ilable System, Provider Not In Primary Care Provider Un available Mu Hickey MD Primary Care Provider + [phone] Mu Hickey MD Unavailable +[phone] Coming Ana Luisa Galeana MD Primary Care Provid er Coming Ana Luisa Galeana MD Unavailable + [phone] Crystal Araujo MD Unavailable +-[phone] [facility] Nan Nguyen RN Unavailable Unavailable Reason for Visit * Reason Comments Medication Refill Encounter Details Date Type Department Care Team (Late st Contact Info) Description 05/03/[address] [phone] Christian Mars MD INACTIVE SINCE 05/19/2019 Medication [...] 8:18 AM CST Last office visit 04/14/15 TY ADMIN ASSISTANT documented in this encounter Plan of Treatment Upcoming Encounters Date Type Department Care Team (Late st Contact Info) Description 01/20/2024 2:00 PM CDT Office Visit [facility] [address] [place] [phone] Vidya Galeano PA-C [address] [place] [address] 03/07/2024 2:00 PM CDT Office Visit [facility] [address] [place] [address] [place] [address] [place], [place] [phone] documented as of this encounter Visit Diagnoses Diagnosis Encounter for medication refill- Primary Issue of repeat prescriptions documented in this encounter Care Teams Pressing Machine Operator Relationship Specialty Start Date End Date Christian Mars MD PCP - General Family Practice 07/30/11 10/25/17 System, Provider Not In PCP - General Clinic 10/26/17 05/24/18 Mu Hickey MD [address] [place] [phone] PCP - General Family Practice 05/25/18 06/28/19 [place] [address] [place] [address] PCP - General Family Practice 06/29/19 Christian Mars MD Family Practice 05/26/11 Mu Hickey MD [address] [facility] [place] [address] Assigned PCP 06/11/18 07/07/19 [place] [address] [place], [place] [phone] Assigned PCP 07/08/19 Crystal Araujo MD [address] [place] [address] Assigned OBGYN Provider 04/11/2006/14 Nan Nguyen, BERENICE 09/09/21 08/10/22 documented as of this encounter
--- OUTSIDE RECORDS SUMMARY | 2024-01-18 02:30 | XMS_ITS | Encounter Summary ---
Author Organization [facility] [place] Address [address] [place] [address] Care Team Providers Care Occ Ther Name Role Phone Christian Mars MD Unavailable Unavailable Christian Mars MD Primary Care Provider Unava ilable System, Provider Not In Primary Care Provider Un available Mu Hickey MD Primary Care Provider + [phone] Mu Hickey MD Unavailable +[phone] Coming Ana Luisa Galeana MD Primary Care Provid er Coming Ana Luisa Galeana MD Unavailable + [phone] Crystal Araujo MD Unavailable +[phone] [facility] Nan Nguyen RN Unavailable Unavailable Encounter Details Date Type Department Care Team (Late st Contact Info) Description 09/08/2017 MyC Medical Advice [facility] [address] [place] [phone] Christian Mars MD INACTIVE SINCE 05/19/2019 [...] Description 01/20/2024 2:00 PM CDT Office Visit [facility] [address] [place] [phone] Vidya Galeano PA-C [address] [place] [address] 03/07/2024 2:00 PM CDT Office Visit [facility] [address] [place] [phone] [place] [address] [place], [place] [phone] documented as of this encounter Visit Diagnoses Not on filedocumented in this encounter Care Teams Occ Ther Relationship Specialty Start Date End Date Christian Mars MD PCP - General Family Practice 07/30/11 10/25/17 System, Provider Not In PCP - General Clinic 10/26/17 05/24/18 Mu Hickey MD [address] [phone] PCP - General Family Practice 05/25/18 06/28/19 [place] [address] [place] [address] PCP - General Family Practice 06/29/19 Christian Mars MD [place] [facility] 05/26/11 Mu Hickey MD [address] [phone] Assigned PCP 06/11/18 07/07/19 [place] [address] [place] [address] Assigned PCP 07/08/19 Crystal Araujo MD [address] [place] [address] Assigned OBGYN Provider 04/11/2006/14 Nan Nguyen, RN 09/09/21 08/10/22 documented as of this encounter
--- OUTSIDE RECORDS SUMMARY | 2024-01-18 02:30 | XMS_ITS | Encounter Summary ---
Author Organization [facility] Address [address] [place] [address] Care Team Providers Care Supervisor Detasseling Crew Name Role Phone Christian Mars MD Unavailable Unavailable Christian Mars MD Primary Care Provider Unava ilable System, Provider Not In Primary Care Provider Un available Mu Hickey MD Primary Care Provider + [phone] Mu Hickey MD Unavailable +[phone] Coming Ana Luisa Galeana MD Primary Care Provid er Coming Ana Luisa Galeana MD Unavailable + [phone] Crystal Araujo MD Unavailable +[phone] [facility] Nan Nguyen RN Unavailable Unavailable Reason for Visit * Reason Comments Medication Refill Encounter Details Date Type Department Care Team (Late st Contact Info) Description 01/07/[address] [phone] Christian Mars MD INACTIVE SINCE 05/19/2019 Medication [...] Description 01/20/2024 2:00 PM CDT Office Visit [facility] [address] [place] [phone] Vidya Galeano PA-C [address] [place] [address] 03/07/2024 2:00 PM CDT Office Visit [facility] [address] [place] [address] [place] [address] [place], [place] [phone] documented as of this encounter Visit Diagnoses Diagnosis Encounter for medication refill- Primary Issue of repeat prescriptions documented in this encounter Care Teams Supervisor Detasseling Crew Relationship Specialty Start Date End Date Christian Mars MD PCP - General Family Practice 07/30/11 10/25/17 System, Provider Not In PCP - General Clinic 10/26/17 05/24/18 Mu Hickey MD [address] [phone] PCP - General Family Practice 05/25/18 06/28/19 [place] [address] [place], [place] [phone] PCP - General Family Practice 06/29/19 Christian Mars MD [facility] 05/26/11 Mu Hickey MD [address] [phone] Assigned PCP 06/11/18 07/07/19 [place] [address] [place] [address] Assigned PCP 07/08/19 Crystal Araujo MD [address] [place] [address] Assigned OBGYN Provider 04/11/2006/14 Nan Nguyen, BERENICE 09/09/21 08/10/22 documented as of this encounter
--- OUTSIDE RECORDS SUMMARY | 2024-01-18 02:30 | XMS_ITS ---
Author Organization [facility] Address [address] [place] [address] Care Team Providers Care Booking Manager Name Role Phone Christian Mars MD Unavailable Unavailable Coming Ana Luisa Galeana MD Primary Care Provid er Coming Ana Luisa Galeana MD Unavailable +[phone] Transplant Episode Kidney Potential Donor [facility] ([place], [place]) - [place] Evaluation began on 05/20/2008 Marked as Active on 05/20/2008 Kidney CoordinatorCandi Lopez RN Phone: N/A Fax: N/A Email: Care Team Name Role Phone Fax Email Candi Lopez RN Kidney Coordinator N/A N/A Events Pre-Donation Referred: 05/20/2008 Evaluation began: 05/20/2008
--- OUTSIDE RECORDS SUMMARY | 2024-01-18 02:30 | XMS_ITS | Encounter Summary ---
Author Organization [facility] Address [address] [place] [address] Care Team Providers Care Chopping Machine Operator Name Role Phone Christian Mars MD Unavailable Unavailable Christian Mars MD Primary Care Provider Unava ilable System, Provider Not In Primary Care Provider Un available Mu Hickey MD Primary Care Provider + [phone] Mu Hickey MD Unavailable +[phone] Coming Ana Luisa Galeaan MD Primary Care Provid er Coming Ana Luisa Galeana MD Unavailable +- [phone] Crystal Araujo MD Unavailable +[phone] [facility] Nan Nguyen RN Unavailable Unavailable Reason for Visit * Reason Comments Medication Refill metformin last OV - 05/28/16 last labs 02/11/16 Encounter Details Date Type Department Care Team (Late st Contact Info) Description 07/07/2016 Refill [facility] [address] [place] [address] Darien Andrade MD [address] [place] [address] Medication Refill (metformin last OV [...] 06/11/2015 A1C 8.8 04/04/2015 A1C 7.0 02/03/2015 [facility] documented in this encounter Plan of Treatment Upcoming Encounters Date Type Department Care Team (Late st Contact Info) Description 01/20/2024 2:00 PM CDT Office Visit [address] [phone] Vidya Galeano PA-C [address] [place] [phone] 03/07/2024 2:00 PM CDT Office Visit [address] [phone] [place] [address] [place], [place] [phone] documented as of this encounter Visit Diagnoses Diagnosis Encounter for medication refill- Primary Issue of repeat prescriptions documented in this encounter Care Teams Chopping Machine Operator Relationship Specialty Start Date End Date Christian Mars MD PCP - General Family Practice 07/30/11 10/25/17 System, Provider Not In PCP - General Clinic 10/26/17 05/24/18 Mu Hickey MD [address] [address] PCP - General Family Practice 05/25/18 06/28/19 [place] [address] [place] [address] PCP - General Family Practice 06/29/19 Christian Mars MD Family Practice 05/26/11 Mu Hickey MD [address] [phone] Assigned PCP 06/11/18 07/07/19 [place] [address] [address] [place] [address] Assigned PCP 07/08/19 Crystal Araujo MD [address] [place] [address] Assigned OBGYN Provider 04/11/2006/14 Nan Nguyen RN 09/09/21 08/10/22 documented as of this encounter
--- OUTSIDE RECORDS SUMMARY | 2024-01-18 02:30 | XMS_ITS | Encounter Summary ---
Author Organization [place] Address [address] [place] [address] Care Team Providers Care Forestry Consultant Name Role Phone Christian Mars MD Unavailable Unavailable Christian Mars MD Primary Care Provider Unava ilable System, Provider Not In Primary Care Provider Un available Mu Hickey MD Primary Care Provider + [phone] Mu Hickey MD Unavailable +[phone] Coming Ana Luisa Galeana MD Primary Care Provid er Coming Ana Luisa Galeana MD Unavailable + [phone] Crystal Araujo MD Unavailable +[phone] [facility] Nan Nguyen RN Unavailable Unavailable Reason for Visit * Reason Comments Medication Refill Encounter Details Date Type Department Care Team (Late st Contact Info) Description 10/02/[address] [phone] Christian Mars MD INACTIVE SINCE 05/19/2019 Medication [...] Description 01/20/2024 2:00 PM CDT Office Visit [facility] [address] [place] [phone] Vidya Galeano PA-C [address] [place] [address] 03/07/2024 2:00 PM CDT Office Visit [facility] [address] [place] [address] [place] [address] [place], [place] [phone] documented as of this encounter Visit Diagnoses Diagnosis Encounter for medication refill- Primary Issue of repeat prescriptions documented in this encounter Care Teams Forestry Consultant Relationship Specialty Start Date End Date Christian Mars MD PCP - General Family Practice 07/30/11 10/25/17 System, Provider Not In PCP - General Clinic 10/26/17 05/24/18 Mu Hickey MD [address] [phone] PCP - General Family Practice 05/25/18 06/28/19 [place] [address] [place], [place] [phone] PCP - General Family Practice 06/29/19 Christian Mars MD [facility] Practice 05/26/11 Mu Hickey MD [address] [phone] Assigned PCP 06/11/18 07/07/19 [place] [address] [place] [address] Assigned PCP 07/08/19 Crystal Araujo MD [address] [place] [address] Assigned OBGYN Provider 04/11/2006/14 Nan Nguyen, BERENICE 09/09/21 08/10/22 documented as of this encounter
--- OUTSIDE RECORDS SUMMARY | 2024-01-18 02:30 | XMS_ITS | Encounter Summary ---
Author Organization [facility] Address [address] [place] [address] Care Team Providers Care Brake Operator Helper Name Role Phone Christian Mars MD Unavailable Unavailable Christian Mars MD Primary Care Provider Unava ilable System, Provider Not In Primary Care Provider Un available Mu Hickey MD Primary Care Provider + [phone] Mu Hickey MD Unavailable +[phone] Coming Ana Luisa Galeana MD Primary Care Provid er Coming Ana Luisa Galeana MD Unavailable + [phone] Crystal Araujo MD Unavailable +[phone] [facility] Nan Nguyen RN Unavailable Unavailable Reason for Visit * Reason Comments Medication Refill Fenofibrate Last OV 06/11/15 Encounter Details Date Type Department Care Team (Late st Contact Info) Description 11/01/2015 Refill [facility] [address] [address] Christian Mars MD INACTIVE SINCE 05/19/2019 Medication Refill (Fenofibrate [...] encounter Miscellaneous Notes * Telephone Encounter - LiaYadirau - 11/03/2015 8:39 AM CDT Fenofibrate Last OV 06/11/15 documented in this encounter Plan of Treatment Upcoming Encounters Date Type Department Care Team (Late st Contact Info) Description 01/20/2024 2:00 PM CDT Office Visit [facility] [address] [place] [phone] Vidya Galeano PA-C [address] [place] [phone] 03/07/2024 2:00 PM CDT Office Visit [facility] [address] [place] [phone] [place] [address] [place], [place] [phone] documented as of this encounter Visit Diagnoses Diagnosis Encounter for medication refill- Primary Issue of repeat prescriptions documented in this encounter Care Teams Brake Operator Helper Relationship Specialty Start Date End Date Christian Mars MD PCP - General Family Practice 07/30/11 10/25/17 System, Provider Not In PCP - General Clinic 10/26/17 05/24/18 Mu Hickey MD [address] [place] [phone] PCP - General Family Practice 05/25/18 06/28/19 [place] [address] [place], [place] [phone] PCP - General Family Practice 06/29/19 Christian Mars MD [place] [facility] Practice 05/26/11 Mu Hickey MD [address] [place] [address] Assigned PCP 06/11/18 07/07/19 [place] [address] [place] [address] Assigned PCP 07/08/19 Crystal Araujo MD [address] [place] [address] Assigned OBGYN Provider 04/11/2006/14 Nan Nguyen, BERENICE 09/09/21 08/10/22 documented as of this encounter
--- OUTSIDE RECORDS SUMMARY | 2024-01-18 02:30 | XMS_ITS | Encounter Summary ---
Author Organization [facility] Address [address] [place] [address] Care Team Providers Care Communications Department Head Name Role Phone Christian Mars MD Unavailable Unavailable Christian Mars MD Primary Care Provider Unava ilable System, Provider Not In Primary Care Provider Un available Mu Hickey MD Primary Care Provider + [phone] Mu Hickey MD Unavailable +[phone] Coming Ana Luisa Galeana MD Primary Care Provid er Coming Ana Luisa Galeana MD Unavailable + [phone] Crystal Araujo MD Unavailable +[phone] Nan Maier RN Unavailable Unavailable Reason for Visit * Reason Comments Medication Refill propranolol - last O V and labs 02/11/16, no future appt scheduled Encounter Details Date Type Department Care Team (Late st Contact Info) Description 04/26/[address] [address] Christian Mars MD INACTIVE SINCE [...] Betty Patterson CMA - 04/26/2016 9:04 AM OPERA SINGER propranolol - last OV and labs 02/11/16, no future appt scheduled Office Visit on 02/11/2016 Component Date Value Ref Range Status ??? TSH 02/11/2016 1.970 0.450 - 4.500 uIU/mL Final ??? Hemoglobin A1C 02/11/2016 5.5 4.8 - 5.6 % Final Comment: Pre-diabetes: 5.7 - 6.4 Diabetes: >6.4 Glycemic control for adults with diabetes: <7.0 A SINGER documented in this encounter Plan of Treatment Upcoming Encounters Date Type Department Care Team (Late st Contact Info) Description 01/20/2024 2:00 PM CDT Office Visit [facility] [address] [place] [phone] Vidya Galeano PA-C [address] [place] [address] 03/07/2024 2:00 PM CDT Office Visit [facility] [address] [place] [address] [place] [address] [place], [place] [phone] documented as of this encounter Visit Diagnoses Diagnosis Encounter for medication refill- Primary Issue of repeat prescriptions documented in this encounter Care Teams Communications Department Head Relationship Specialty Start Date End Date Christian Mars MD PCP - General Family Practice 07/30/11 10/25/17 System, Provider Not In PCP - General Clinic 10/26/17 05/24/18 Mu Hickey MD [address] [place] [phone] PCP - General Family Practice 05/25/18 06/28/19 [place] [address] [place] [address] PCP - General Family Practice 06/29/19 Christian Mars MD [place] [facility] 05/26/11 Mu Hickey MD [address] [place] [phone] Assigned PCP 06/11/18 07/07/19 [place] [address] [place] [address] Assigned PCP 07/08/19 Crystal Araujo MD [address] [place] [address] Assigned OBGYN Provider 04/11/2006/14 Nan Nguyen, BREENICE 09/09/21 08/10/22 documented as of this encounter
--- OUTSIDE RECORDS SUMMARY | 2024-01-18 02:30 | XMS_ITS | Encounter Summary ---
Author Organization [facility] Address [address] [place] [address] Care Team Providers Care Housekeeping Aid Name Role Phone Christian Mars MD Unavailable Unavailable Christian Mars MD Primary Care Provider Unava ilable System, Provider Not In Primary Care Provider Un available Mu Hickey MD Primary Care Provider + [phone] Mu Hickey MD Unavailable +[phone] Coming Ana Luisa Galeana MD Primary Care Provid er Coming Ana Luisa Galeana MD Unavailable + [phone] Crystal Araujo MD Unavailable +[phone] [facility] Nan Nguyen RN Unavailable Unavailable Encounter Details Date Type Department Care Team (Late st Contact Info) Description 09/09/2017 MyC Medical Advice [facility] [address] [place] [phone] Christian Mars MD INACTIVE SINCE 05/19/2019 [...] CDT Office Visit [facility] [address] [place] [phone] Vidya Galeano PA-C [address] [place] [address] 03/07/2024 2:00 PM CDT Office Visit [facility] [address] [place] [phone] [place] [address] [place], [place] [phone] documented as of this encounter Visit Diagnoses Not on filedocumented in this encounter Care Teams Housekeeping Aid Relationship Specialty Start Date End Date Christian Mars MD PCP - General Family Practice 07/30/11 10/25/17 System, Provider Not In PCP - General Clinic 10/26/17 05/24/18 Mu Hickey MD [address] [phone] PCP - General Family Practice 05/25/18 06/28/19 [place] [address] [place] [address] PCP - General Family Practice 06/29/19 Christian Mars MD [place] Family Practice 05/26/11 Mu Hickey MD [address] [phone] Assigned PCP 06/11/18 07/07/19 [place] [address] [place] [address] Assigned PCP 07/08/19 Crystal Araujo MD [address] [place] [address] Assigned OBGYN Provider 04/11/2006/14 Nan Nguyen, RN 09/09/21 08/10/22 documented as of this encounter
--- OUTSIDE RECORDS SUMMARY | 2024-01-18 02:30 | XMS_ITS | Encounter Summary ---
Author Organization [facility] Address [address] [place] [address] Care Team Providers Care Data Base Administrator Name Role Phone Christian Mars MD Unavailable Unavailable Christian Mars MD Primary Care Provider Unava ilable System, Provider Not In Primary Care Provider Un available Mu Hickey MD Primary Care Provider + [phone] Mu Hickey MD Unavailable +[phone] Coming Ana Luisa Galeana MD Primary Care Provid er Coming Ana Luisa Galeana MD Unavailable + [phone] Crystal Araujo MD Unavailable +[phone] [facility] Nan Nguyen RN Unavailable Unavailable Reason for Visit * Reason Comments Medication Refill Metformin, Last OV 1 08/12/14, Last Labs 06/11/15 Encounter Details Date Type Department Care Team (Late st Contact Info) Description 07/03/[address] [phone] Christian Mars MD INACTIVE SINCE 05/19/2019 Medication [...] Miscellaneous Notes * Telephone Encounter - Amanda Armenta - 07/03/2015 8:20 AM CST Metformin, Last OV 06/11/15, Last Labs 06/11/15 Amanda Armenta, CAFE WORKER 8:20 AM July 03, 2015 GROUND EQUIPMENT ERECTOR documented in this encounter Plan of Treatment Upcoming Encounters Date Type Department Care Team (Late st Contact Info) Description 01/20/2024 2:00 PM CDT Office Visit [facility] [address] [place] [phone] Vidya Galeano PA-C [address] [place] [phone] 03/07/2024 2:00 PM CDT Office Visit [address] [phone] [place] [address] [place], [place] [phone] documented as of this encounter Visit Diagnoses Diagnosis Encounter for medication refill- Primary Issue of repeat prescriptions documented in this encounter Care Teams Data Base Administrator Relationship Specialty Start Date End Date Christian Mars MD PCP - General Family Practice 07/30/11 10/25/17 System, Provider Not In PCP - General Clinic 10/26/17 05/24/18 Mu Hickey MD [address] [facility] [place] [address] PCP - General Family Practice 05/25/18 06/28/19 [place] [address] [place] [address] PCP - General Family Practice 06/29/19 Christian Mars MD [place] [facility] 05/26/11 Mu Hickey MD [address] [place] [id number] Assigned PCP 06/11/18 07/07/19 [place] [address] [place] [address] Assigned PCP 07/08/19 Crystal Araujo MD [address] [place] [address] Assigned OBGYN Provider 04/11/2006/14 Nan Nguyen, BERENICE 09/09/21 08/10/22 documented as of this encounter
--- OUTSIDE RECORDS SUMMARY | 2024-01-18 02:30 | XMS_ITS | Encounter Summary ---
Author Organization [facility] Address [address] [place] [address] Care Team Providers Care Metal Technician Name Role Phone Christian Mars MD Unavailable Unavailable Christian Mars MD Primary Care Provider Unava ilable System, Provider Not In Primary Care Provider Un available Mu Hickey MD Primary Care Provider + [phone] Mu Hickey MD Unavailable +[phone] Coming Ana Luisa Galeana MD Primary Care Provid er Coming Ana Luisa Galeana MD Unavailable + [phone] Crystal Araujo MD Unavailable +[phone] [facility] Nan Nguyen RN Unavailable Unavailable Reason for Visit * Reason Comments Medication Refill Encounter Details Date Type Department Care Team (Late st Contact Info) Description 06/15/[address] [phone] Christian Mars MD INACTIVE SINCE 05/19/2019 Medication [...] Description 01/20/2024 2:00 PM CDT Office Visit [facility] [address] [place] [phone] Vidya Galeano PA-C [address] [place] [address] 03/07/2024 2:00 PM CDT Office Visit [facility] [address] [place] [address] [place] [address] [place], [place] [phone] documented as of this encounter Visit Diagnoses Diagnosis Encounter for medication refill- Primary Issue of repeat prescriptions documented in this encounter Care Teams Metal Technician Relationship Specialty Start Date End Date Christian Mars MD PCP - General Family Practice 07/30/11 10/25/17 System, Provider Not In PCP - General Clinic 10/26/17 05/24/18 Mu Hickey MD [address] [phone] PCP - General Family Practice 05/25/18 06/28/19 [place] [address] [place], [place] [phone] PCP - General Family Practice 06/29/19 Christian Mars MD [facility] 05/26/11 Mu Hickey MD [address] [phone] Assigned PCP 06/11/18 07/07/19 [place] [address] [place] [address] Assigned PCP 07/08/19 Crystal Araujo MD [address] [place] [address] Assigned OBGYN Provider 04/11/2006/14 Nan Nguyen, BERENICE 09/09/21 08/10/22 documented as of this encounter
--- OUTSIDE RECORDS SUMMARY | 2024-01-18 02:30 | XMS_ITS | Encounter Summary ---
Author Organization [facility] Address [address] [place] [address] Care Team Providers Care Roof Cement And Paint Maker Name Role Phone Christian Mars MD Unavailable Unavailable Christian Mars MD Primary Care Provider Unava ilable System, Provider Not In Primary Care Provider Un available Mu Hickey MD Primary Care Provider + [phone] Mu Hickey MD Unavailable +[phone] Coming Ana Luisa Galeana MD Primary Care Provid er Coming Ana Luisa Galeana MD Unavailable + [phone] Crystal Araujo MD Unavailable [phone] [facility] Nan Nguyen RN Unavailable Unavailable Reason for Visit * Reason Comments Medication Refill Encounter Details Date Type Department Care Team (Late st Contact Info) Description 06/06/[address] [phone] Christian Mars MD INACTIVE SINCE 05/19/2019 Medication [...] Description 01/20/2024 2:00 PM CDT Office Visit [facility] [address] [place] [phone] Vidya Galeano PA-C [address] [place] [address] 03/07/2024 2:00 PM CDT Office Visit [facility] [address] [place] [address] [place] [address] [place], [place] [phone] documented as of this encounter Visit Diagnoses Diagnosis Refill clinic medication management patient- Primary documented in this encounter Care Teams Roof Cement And Paint Maker Relationship Specialty Start Date End Date Christian Mars MD PCP - General Family Practice 07/30/11 10/25/17 System, Provider Not In PCP - General Clinic 10/26/17 05/24/18 Mu Hickey MD [address] [phone] PCP - General Family Practice 05/25/18 06/28/19 [place] [address] [place] [address] PCP - General Family Practice 06/29/19 Christian Mars MD [facility] 05/26/11 Mu Hickey MD [address] [phone] Assigned PCP 06/11/18 07/07/19 [place] [address] [place] [address] Assigned PCP 07/08/19 Crystal Araujo MD [address] [place] [address] Assigned OBGYN Provider 04/11/2006/14 Nan Nguyen, BERENICE 09/09/21 08/10/22 documented as of this encounter
--- OUTSIDE RECORDS SUMMARY | 2024-01-18 02:30 | XMS_ITS | Encounter Summary ---
Author Organization [place] Address [address] [address] Care Team Providers Care Butadiene Converter Operator Name Role Phone Christian Mars MD Unavailable Unavailable Christian Mars MD Primary Care Provider Unava ilable System, Provider Not In Primary Care Provider Un available Mu Hickey MD Primary Care Provider + [phone] Mu Hickey MD Unavailable +[phone] Coming Ana Luisa Galeana MD Primary Care Provid er Coming Ana Luisa Galeana MD Unavailable + [phone] Crystal Araujo MD Unavailable +[phone] Nan Maier RN Unavailable Unavailable Reason for Visit * Reason Comments Medication Refill fenofibrate last OV & Lipids 09/22/16 Encounter Details Date Type Department Care Team (Late st Contact Info) Description 12/28/2016 Refill [facility] [address] [phone] Christian Mars MD INACTIVE SINCE [...] * Telephone Encounter - Bernice Dawn - 12/28/2016 2:56 PM CDT fenofibrate last [...] 2:00 PM CDT Office Visit [facility] [address] [place] [phone] Vidya Galeano PA-C [address] [place] [phone] 03/07/2024 2:00 PM CDT Office Visit [facility] [address] [place] [phone] [place] [address] [place], [place] [phone] documented as of this encounter Visit Diagnoses Diagnosis Encounter for medication refill Issue of repeat prescriptions Hyperlipidemia Other and unspecified hyperlipidemia documented in this encounter Care Teams Butadiene Converter Operator Relationship Specialty Start Date End Date Christian Mars MD PCP - General Family Practice 07/30/11 10/25/17 System, Provider Not In PCP - General Clinic 10/26/17 05/24/18 Mu Hickey MD [address] [phone] PCP - General Family Practice 05/25/18 06/28/19 [place] [address] [place] [address] PCP - General Family Practice 06/29/19 Christian Mars MD [facility] Practice 05/26/11 Mu Hickey MD [address] [phone] Assigned PCP 06/11/18 07/07/19 [place] [address] [place] [address] Assigned PCP 07/08/19 Crystal Araujo MD [address] [place] [address] Assigned OBGYN Provider 04/11/2006/14 Nan Nguyen, RN 09/09/21 08/10/22 documented as of this encounter
--- OUTSIDE RECORDS SUMMARY | 2024-01-18 02:30 | XMS_ITS | Encounter Summary ---
Author Organization [facility] Address [address] [place] [address] Care Team Providers Care Site Acquisition Manager Name Role Phone Christian Mars MD Unavailable Unavailable Christian Mars MD Primary Care Provider Unava ilable System, Provider Not In Primary Care Provider Un available Mu Hickey MD Primary Care Provider + [phone] Mu Hickey MD Unavailable +[phone] Coming Ana Luisa Galeana MD Primary Care Provid er Coming Ana Luisa Galeana MD Unavailable + [phone] Crystal Araujo MD Unavailable +[phone] [facility] Nan Nguyen RN Unavailable Unavailable Reason for Visit * Reason Comments Medication Refill fenofibrate last OV - & labs 06/11/15 Encounter Details Date Type Department Care Team (Late st Contact Info) Description 10/24/2015 Refill [facility] [address] [phone] Christian Mars MD INACTIVE SINCE [...] Office Visit [facility] [address] [place] [phone] Vidya Galeano PA-C [address] [place] [address] 03/07/2024 2:00 PM CDT Office Visit [facility] [address] [place] [phone] [place] [address] [facility] [place] [phone] documented as of this encounter Visit Diagnoses Diagnosis Encounter for medication refill- Primary Issue of repeat prescriptions documented in this encounter Care Teams Site Acquisition Manager Relationship Specialty Start Date End Date Christian Mars MD PCP - General Family Practice 07/30/11 10/25/17 System, Provider Not In PCP - General Clinic 10/26/17 05/24/18 Mu Hickey MD [address] [place] [address] PCP - General Family Practice 05/25/18 06/28/19 [place] [address] [place] [address] PCP - General Family Practice 06/29/19 Christian Mars MD [facility] 05/26/11 Mu Hickey MD [address] [place] [phone] Assigned PCP 06/11/18 07/07/19 [place] [address] [facility] [place] [address] Assigned PCP 07/08/19 Crystal Araujo MD [address] [facility] [place] [address] Assigned OBGYN Provider 04/11/2006/14 Nan Nguyen, BERENICE 09/09/21 08/10/22 documented as of this encounter
--- OUTSIDE RECORDS SUMMARY | 2024-01-18 02:30 | XMS_ITS | Encounter Summary ---
Author Organization [facility] Address [address] [place] [address] Care Team Providers Care Special Officer Automat Name Role Phone Christian Mars MD Unavailable Unavailable Christian Mars MD Primary Care Provider Unava ilable System, Provider Not In Primary Care Provider Un available Mu Hickey MD Primary Care Provider + [phone] Mu Hickey MD Unavailable +[phone] Coming Ana Luisa Galeana MD Primary Care Provid er Coming Ana Luisa Galeana MD Unavailable + [phone] Crystal Araujo MD Unavailable [phone] [facility] Nan Nguyen RN Unavailable Unavailable Reason for Visit * Reason Comments Medication Refill Encounter Details Date Type Department Care Team (Late st Contact Info) Description 07/06/[address] [phone] Christian Mars MD INACTIVE SINCE 05/19/2019 Medication [...] PM CDT Office Visit [facility] [address] [place] [phone] Vidya Galeano PA-C [address] [place] [address] 03/07/2024 2:00 PM CDT Office Visit [facility] [address] [place] [address] [place] [address] [place], [place] [phone] documented as of this encounter Visit Diagnoses Diagnosis Encounter for medication refill- Primary Issue of repeat prescriptions documented in this encounter Care Teams Special Officer Automat Relationship Specialty Start Date End Date Christian Mars MD PCP - General Family Practice 07/30/11 10/25/17 System, Provider Not In PCP - General Clinic 10/26/17 05/24/18 Mu Hickey MD [address] [phone] PCP - General Family Practice 05/25/18 06/28/19 [place] [address] [place], [place] [phone] PCP - General Family Practice 06/29/19 Christian Mars MD [facility] Practice 05/26/11 Mu Hickey MD [address] [phone] Assigned PCP 06/11/18 07/07/19 [place] [address] [place] [address] Assigned PCP 07/08/19 Crystal Araujo MD [address] [place] [address] Assigned OBGYN Provider 04/11/2006/14 Nan Nguyen, BERENICE 09/09/21 08/10/22 documented as of this encounter
== END 2024-01-16 08:50 | disposition home or self-care (01) ==
LOC: AMB 01-18 02:25
PROVIDERS: Visit Provider Emergency Medicine Emergency Medical Services
DX: R11.2 Nausea with vomiting, unspecified (principal); R19.7 Diarrhea, unspecified
CPT/HCPCS: A0425; A0427

== ENCOUNTER 2024-01-16 09:47 | Inpatient (IN) | payer OTHER, SELFPAY ==
[2024-01-16] VITALS (32 sets, daily range): BP systolic 99–180; BP diastolic 50–117; PULSE 71–110; RESP 18; TEMP 36.3–36.9; O2SAT 89–100; BMI 29.1; BMI 28.0
--- NOTE | 2024-01-16 10:26 | ED_ITS ---
HPI - Nausea/Vomiting/Diarrhea General Date Seen: 01/16/24 Chief complaint: Nausea/Vomiting Stated complaint: nausea, vomiting, diarrhea Time Seen by Provider: 01/16/24 09:52 Source: patient, family and EMS Mode of arrival: EMS Limitations: no limitations History of Present Illness HPI Narrative: Patient is a previously healthy 53-year-old female who presents here for evaluation and nausea vomiting diarrhea that came on acutely at 6:00 a.m.. This awoke her from sleep, she had approximately 6-7 episodes of both. None of them had any blood in either the vomitus or the stool. She has significant cramping in her abdomen throughout her abdomen, with no localization, she also has aches everywhere and chills. But no overt fever lease she has not taken her temperature at home. She denies any rashes associated with this no other people at home sick, she did not take any medications at home for this called EMS, and they brought her here, they gave her fluids Zofran and Ativan. She says she does not feel a lot better. Denies alcohol intake, denies travel, denies any other family members being currently sick. Denies having this problem ever before as far she knows. Denies chest pain she denies shortness of breath. Eyes leg swelling denies being sick before this at all. Denies drug use. Never before been in our system here. On reviewing her medications, Past history of anxiety, depression, hyperlipidemia, hypertension, and diabetes MD elicited complaint: nausea, vomiting, diarrhea and abdominal pain Onset (ago): hour(s) Description of vomiting: food contents and watery Description of diarrhea: watery and semi-solid Associated nausea: Yes Associated abdominal pain: Yes Location of pain: diffuse Radiation: diffuse Pain consistency: constant Severity: moderate Quality: cramping and stabbing Exacerbating factors: movement and exertion Relieving factors: none Treatment prior to arrival: fluids Related Data Home Medications ?Medication ?Instructions ?Recorded ?Confirmed atorvastatin 10 mg tablet 10 mg PO DAILY 01/16/24 01/16/24 fenofibrate 150 mg capsule 150 mg PO DAILY 01/16/24 01/16/24 glimepiride 2 mg tablet 2 mg PO DAILY 01/16/24 01/16/24 lisinopril 20 mg tablet 20 mg PO DAILY 01/16/24 01/16/24 lorazepam 1 mg tablet (Ativan) 1 mg PO Q8H PRN 01/16/24 01/16/24 metformin 500 mg tablet,extended 500 mg PO BID 01/16/24 01/16/24 release 24 hr paroxetine HCl 40 mg tablet 40 mg PO DAILY 01/16/24 01/16/24 propranolol 20 mg tablet 20 mg PO BID 01/16/24 01/16/24 zolpidem 5 mg tablet (Ambien) 5 mg PO QHS 01/16/24 01/16/24 Allergies Allergy/AdvReac Type Severity Reaction Status Date / Time niacin Allergy Verified 01/16/24 10:01 Review of Systems Status of ROS: Reports: 10 or more systems reviewed and unremarkable except as noted in History and below GI: Reports: nausea PFSH PFSH Social History Smoking Status: Former smoker How often do you have a drink containing alcohol: never AUDIT-C Alcohol total score: 0 Non-prescribed substance use: marijuana (any form) Exam Narrative: Exam Narrative: I find her in room 8 she is alert active interactive with me, and her sister and her son are there also. She appears sweaty, and slightly nauseated. Prefers to keep her eyes closed. Pupils are equal round reactive to light there is no scleral icterus or redness, her TMs are normal her oropharynx is normal, there is no meningismus in her neck is supple, she does not have nystagmus, cranial nerves 3-12 are normal, chest is good air entry bilateral with no wheezing crackles noted, no tenderness to palpation over thoracic cervical or lumbar spines. Heart sounds no clicks murmurs or gallops, her abdomen is soft, not distended, there is no organomegaly, deep palpation finds her uncomfortable, but there is no peritoneal signs. There is no hernias noted. She moves all extremities independently well with absence of rashes swelling, petechiae, she is neurologically intact. Const: Vital Signs, click to edit/add: Vital Signs - 24 hr 01/16/24 09:55 01/16/24 09:55 01/16/24 10:00 Temperature 97.3 F L Pulse Rate 84 Pulse Rate [Right Pulse Oximeter] 71 Respiratory Rate 18 Blood Pressure Blood Pressure [Ri ght Upper Arm] 155/91 H Pulse Oximetry 100 96 99 Oxygen Delivery Me thod Room Air Oxygen Flow Rate 01/16/24 10:01 01/16/24 10:47 01/16/24 10:49 Temperature Pulse Rate 72 90 86 Pulse Rate [Right Pulse Oximeter] Respiratory Rate Blood Pressure 171/113 H 180/117 H Blood Pressure [Ri ght Upper Arm] Pulse Oximetry 98 99 98 Oxygen Delivery Me thod Oxygen Flow Rate 01/16/24 10:50 01/16/24 11:00 01/16/24 11:02 Temperature Pulse Rate 74 71 74 Pulse Rate [Right Pulse Oximeter] Respiratory Rate Blood Pressure 172/96 H Blood Pressure [Ri ght Upper Arm] Pulse Oximetry 99 99 98 Oxygen Delivery Me thod Oxygen Flow Rate 01/16/24 11:29 01/16/24 11:30 01/16/24 11:32 Temperature Pulse Rate 89 86 Pulse Rate [Right Pulse Oximeter] Respiratory Rate Blood Pressure 169/105 H Blood Pressure [Ri ght Upper Arm] Pulse Oximetry 93 93 94 Oxygen Delivery Me thod Nasal Cannula Oxygen Flow Rate 1 01/16/24 11:33 01/16/24 12:00 01/16/24 12:02 Temperature Pulse Rate 87 90 Pulse Rate [Right Pulse Oximeter] Respiratory Rate Blood Pressure 159/98 H Blood Pressure [Ri ght Upper Arm] Pulse Oximetry 96 96 Oxygen Delivery Me thod Oxygen Flow Rate 01/16/24 12:30 01/16/24 12:32 01/16/24 13:00 Temperature Pulse Rate 94 96 94 Pulse Rate [Right Pulse Oximeter] Respiratory Rate Blood Pressure 157/97 H Blood Pressure [Ri ght Upper Arm] Pulse Oximetry 92 91 93 Oxygen Delivery Me thod Oxygen Flow Rate 01/16/24 13:01 01/16/24 13:02 01/16/24 13:34 Temperature Pulse Rate 94 95 100 Pulse Rate [Right Pulse Oximeter] Respiratory Rate Blood Pressure 160/94 H Blood Pressure [Ri ght Upper Arm] Pulse Oximetry 92 91 99 Oxygen Delivery Me thod Oxygen Flow Rate 01/16/24 13:35 01/16/24 13:36 01/16/24 13:37 Temperature Pulse Rate 98 93 Pulse Rate [Right Pulse Oximeter] Respiratory Rate Blood Pressure 166/114 H Blood Pressure [Ri ght Upper Arm] Pulse Oximetry 99 100 100 Oxygen Delivery Me thod Oxygen Flow Rate 01/16/24 14:00 01/16/24 14:02 01/16/24 14:30 Temperature Pulse Rate 86 89 98 Pulse Rate [Right Pulse Oximeter] Respiratory Rate Blood Pressure 167/97 H Blood Pressure [Ri ght Upper Arm] Pulse Oximetry 99 98 94 Oxygen Delivery Me thod Oxygen Flow Rate 01/16/24 14:32 01/16/24 15:02 Temperature Pulse Rate 101 H Pulse Rate [Right Pulse Oximeter] Respiratory Rate Blood Pressure 145/93 H 150/88 H Blood Pressure [Ri ght Upper Arm] Pulse Oximetry 89 Oxygen Delivery Me thod Oxygen Flow Rate Documenting provider has reviewed patient's vital signs: yes Course Course ED Course: Discussed with the patient she still feels quite ill. Still has not been able to keep anything down, and vomiting here. Her chest pain is her major complaint rate now but I do have troponin x2 that are negative, chest CT with IV contrast indication PE study which is negative, chest abdomen pelvis which does not show any acute problems also. Laboratory work showed that she was dehydrated, with elevated troponin initially likely from retching, this is been partially corrected, with IV fluids x2 L with 500 mL of lactated Ringer's going on. She still has nausea we initially tried some Zofran but then her EKG did show prolonged QT interval. So I gave her some more Ativan and reason Benadryl. And this is somewhat better. I had a long talk with her and her sister, known I would be more comfortable admitting at and watching to make sure she keeps his down his I do believe that if we send her home she will be be right back in. She definitely is better than when she 1st came in as is able now to walk to the bathroom, before she could not was a 1-2 person assist. Discussed the case with from inpatient hospital medicine she agreed to admit her to the hospital, I think in the short term this is the best for her. Vital Signs Vital signs: Initial Vital Signs Temperature 97.3 F L 01/16/24 09:55 Temperature Source Temporal Artery Scan 01/16/24 09:55 Pulse Rate 71 01/16/24 09:55 Respiratory Rate 18 01/16/24 09:55 Blood Pressure 155/91 H 01/16/24 09:55 Blood Pressure Mean 112 H 01/16/24 09:55 Blood Pressure Position Sitting 01/16/24 09:55 Pulse Oximetry 100 01/16/24 09:55 Oxygen Delivery Method Room Air 01/16/24 09:55 Vital Signs Temperature 97.3 F L 01/16/24 09:55 Pulse Rate 71 01/16/24 09:55 Respiratory Rate 18 01/16/24 09:55 Blood Pressure 155/91 H 01/16/24 09:55 Pulse Oximetry 100 01/16/24 09:55 Oxygen Delivery Method Room Air 01/16/24 09:55 Temperature 97.3 F L 01/16/24 09:55 Pulse Rate 101 H 01/16/24 14:32 Respiratory Rate 18 01/16/24 09:55 Blood Pressure 150/88 H 01/16/24 15:02 Pulse Oximetry 89 01/16/24 14:32 Oxygen Delivery Method Nasal Cannula 01/16/24 11:29 Oxygen Flow Rate 1 01/16/24 11:29 Medications Administered Medications: Discontinued Medications Generic Name Dose Route Start Last Admin Trade Name Freq PRN Reason Stop Dose Admin Diphenhydramine HCl 25 mg 01/16/24 13:52 01/16/24 13:58 Diphenhydramine 50 Mg/Ml Inj IVP 01/16/24 13:53 25 mg ONCE ONE Administration Hydromorphone HCl 0.5 mg 01/16/24 11:06 01/16/24 11:21 Hydromorphone 0.5 Mg/0.5 Ml Inj IVP 01/16/24 11:07 0.5 mg ONCE ONE Administration Sodium Chloride 1,000 mls @ 1,000 mls/hr 01/16/24 10:30 01/16/24 11:55 0.9 % Sodium Chloride 1000 Ml IV 01/16/24 11:29 Infused .Q1H VETO Infusion Sodium Chloride 1,000 mls @ 1,000 mls/hr 01/16/24 11:15 01/16/24 13:20 0.9 % Sodium Chloride 1000 Ml IV 01/16/24 12:14 Infused .Q1H VETO Infusion Lactated Ringer's 500 mls @ 500 mls/hr 01/16/24 13:18 01/16/24 14:30 Lactated Ringers 500 Ml IV 01/16/24 14:17 Infused .Q1H ONE Infusion Lorazepam 0.5 mg 01/16/24 13:52 01/16/24 14:00 Lorazepam 2 Mg/Ml Inj IVP 01/16/24 13:53 0.5 mg ONCE ONE Administration MDM - Nausea/Vomiting/Diarrhea MDM Narrative Medical decision making narrative: Differential diagnosis includes but is not limited to viral gastroenteritis, drug food poisoning, pyloric stenosis, gastritis, pancreatitis, hepatitis, cholecystitis, appendicitis, bowel obstruction, hyperemesis, cyclic vomiting syndrome, bulimia nervosa, migraine headache, motion sickness and medication side effect. These include the life threatening complications of appendicitis, drug food poisoning and bowel obstruction. Differential diagnosis considered include but not limited to viral gastroenteritis, food poisoning, bowel obstruction, Clostridium difficile, Campylobacter, Shigella, rotavirus, medication side effects, dysentery, diverticulitis, Crohn's disease and colitis Medical Records Attestation: I reviewed the patient's medical records. Medical records narrative: Reviewed the records from a [facility]. Lab Data Attestation: I reviewed the patient's lab results. Labs: Lab Results 01/16/24 01/16/24 01/16/24 Range/Units 10:41 10:45 12:43 WBC 16.56 H (4.50-11.00) K/uL RBC 6.00 H (4.00-5.20) m/uL Hgb 16.8 H (12.0-16.0) gm/dL Hct 48.2 (33.0-51.0) % MCV 80 (80-100) fL MCH 28 (26-34) pg MCHC 35 (32-36) gm/dL RDW Coeff of Arpan 11.9 (11.5-15.5) % Plt Count 361 (140-440) K/uL Neut % (Auto) 87.3 H (42.0-72.0) % Lymph % (Auto) 4.9 L (20-44) % [place] % (Auto) 6.3 (0.0-11.0) % Eos % (Auto) 0.6 (0.0-7.0) % Baso % (Auto) 0.7 (0.0-3.0) % Neut # (Auto) 14.50 H (1.7-7.0) K/uL Lymph # (Auto) 0.80 L (0.90-2.90) K/uL [place] # (Auto) 1.00 H (0.00-0.90) K/UL Eos # (Auto) 0.10 (0.00-0.50) K/uL Baso # (Auto) 0.10 (0.00-0.30) K/uL Abs Immat Gran (auto) 0.00 (0.00-0.30) K/uL Imm/Tot Granulo (auto) 0.2 % Sodium 139 (135-149) mmol/L Potassium 4.1 (3.6-5.1) mmol/L Chloride 103 (96-114) mmol/L Carbon Dioxide 15 L (20-32) mmol/L Anion Gap 21 H (7-15) mEq/L BUN 19 (7-30) mg/dL Creatinine 1.0 (0.5-1.5) mg/dL Estimated Creat Clear 62.31 Estimated GFR 68 ml/min Glucose 355 H* (60-115) mg/dL Lactate 2.7 H (0.5-1.9) mmol/L Calcium 10.2 (8.4-10.6) mg/dL Total Bilirubin 1.5 (0.1-1.5) mg/dL Direct Bilirubin 0.5 (0.0-0.5) mg/dL AST 24 (12-35) U/L ALT 29 (4-35) U/L Alkaline Phosphatase 94 (40-150) U/L C-Reactive Protein < 0.5 L (0.5-1.0) mg/dL Total Protein 9.1 H (6.0-8.3) g/dL Albumin 5.5 H (3.3-5.0) g/dL Amylase 103 H (18-89) U/L Lipase 134 (23-300) U/L Procalcitonin 0.13 (<0.50) ng/mL Urine Color (Yellow) Urine Appearance (Clear) Urine pH (5.0-8.5) Ur Specific [place] (1.000-1.030) Urine Protein (Negative) Urine Glucose (UA) (Negative) Urine Ketones (Negative) Urine Blood (Negative) Urine Nitrite (Negative) Urine Bilirubin (Negative) Urine Urobilinogen (0.2-1.0) Ur Leukocyte Esterase (Negative) Urine RBC (0-2) Urine WBC (0-5) Ur Squamous Epith Cells (None-Few) Urine Bacteria (None) Ethyl Alcohol < 0.01 L (0.01-0.03) % SARS-CoV-2 (PCR) Negative SARS-CoV-2 (Negative) Influenza Type A (PCR) Negative PCR FLU A (Negative) Influenza Type B (PCR) Negative PCR FLU B (Negative) RSV (PCR) Negative PCR RSV (Negative) POC Glucose 244 H (60-115) mg/dl POC Troponin I 0.03 0.00 L (0.01-0.04) ng/ml 01/16/24 01/16/24 Range/Units 13:07 13:27 WBC (4.50-11.00) K/uL RBC (4.00-5.20) m/uL Hgb (12.0-16.0) gm/dL Hct (33.0-51.0) % MCV (80-100) fL MCH (26-34) pg MCHC (32-36) gm/dL RDW Coeff of Arpan (11.5-15.5) % Plt Count (140-440) K/uL Neut % (Auto) (42.0-72.0) % Lymph % (Auto) (20-44) % [place] % (Auto) (0.0-11.0) % Eos % (Auto) (0.0-7.0) % Baso % (Auto) (0.0-3.0) % Neut # (Auto) (1.7-7.0) K/uL Lymph # (Auto) (0.90-2.90) K/uL [place] # (Auto) (0.00-0.90) K/UL Eos # (Auto) (0.00-0.50) K/uL Baso # (Auto) (0.00-0.30) K/uL Abs Immat Gran (auto) (0.00-0.30) K/uL Imm/Tot Granulo (auto) % Sodium (135-149) mmol/L Potassium (3.6-5.1) mmol/L Chloride (96-114) mmol/L Carbon Dioxide (20-32) mmol/L Anion Gap (7-15) mEq/L BUN (7-30) mg/dL Creatinine (0.5-1.5) mg/dL Estimated Creat Clear Estimated GFR ml/min Glucose (60-115) mg/dL Lactate 1.6 (0.5-1.9) mmol/L Calcium (8.4-10.6) mg/dL Total Bilirubin (0.1-1.5) mg/dL Direct Bilirubin (0.0-0.5) mg/dL AST (12-35) U/L ALT (4-35) U/L Alkaline Phosphatase (40-150) U/L C-Reactive Protein (0.5-1.0) mg/dL Total Protein (6.0-8.3) g/dL Albumin (3.3-5.0) g/dL Amylase (18-89) U/L Lipase (23-300) U/L Procalcitonin (<0.50) ng/mL Urine Color Yellow (Yellow) Urine Appearance Clear (Clear) Urine pH 5.5 (5.0-8.5) Ur Specific [place] <= 1.005 (1.000-1.030) Urine Protein Negative (Negative) Urine Glucose (UA) 2+ A (Negative) Urine Ketones 2+ A (Negative) Urine Blood Negative (Negative) Urine Nitrite Negative (Negative) Urine Bilirubin Negative (Negative) Urine Urobilinogen 0.2 (0.2-1.0) Ur Leukocyte Esterase Negative (Negative) Urine RBC 0-2 (0-2) Urine WBC 0-2 (0-5) Ur Squamous Epith Cells None (None-Few) Urine Bacteria None (None) Ethyl Alcohol (0.01-0.03) % SARS-CoV-2 (PCR) (Negative) Influenza Type A (PCR) (Negative) Influenza Type B (PCR) (Negative) RSV (PCR) (Negative) POC Glucose (60-115) mg/dl POC Troponin I (0.01-0.04) ng/ml ECG Data Attestation: I personally reviewed and interpreted this ECG as follows: ECG interpretation date: 01/16/24 Prior ECG tracings: not available for review Interpretation: EKG shows normal sinus rhythm with a ventricular rate of 95, slightly prolonged QT see bad as at 492 is noted. No acute ST wave changes Impression: Slightly prolonged QT otherwise normal EKG Discharge Plan Discharge Clinical Impression: Vomiting, Dehydration, Nausea, Diarrhea, Chest pain, Elevated lactic acid level, Prolonged Q-T interval on ECG Patient Disposition: Admitted As Observation Condition: Improved Prescriptions: No Action fenofibrate 150 mg capsule 150 mg PO DAILY glimepiride 2 mg tablet 2 mg PO DAILY propranolol 20 mg tablet 20 mg PO BID metformin 500 mg tablet extended release 24 hr 500 mg PO BID atorvastatin 10 mg tablet 10 mg PO DAILY paroxetine HCl 40 mg tablet 40 mg PO DAILY lisinopril 20 mg tablet 20 mg PO DAILY zolpidem [Ambien] 5 mg tablet 5 mg PO QHS Rx Instructions: may repeat once if no response in 30-60 minutes lorazepam [Ativan] 1 mg tablet 1 mg PO Q8H PRN Follow Up/Referrals: Provider,Not a Local [Primary Care Provider] -
[2024-01-16 10:47] LABS: Lactate* 2.7 mmol/L (0.5-1.9)
[2024-01-16 10:49] LABS: Basophils Percent Auto 0.7 % (0.0-3.0); Eosinophils Percent Auto 0.6 % (0.0-7.0); Hematocrit 48.2 % (33.0-51.0); Hemoglobin* 16.8 gm/dL (12.0-16.0); Immature Granulocytes Pct Auto 0.2 %; Lymphocytes Percent Auto 4.9 % (20-44); Mean Corpuscular HGB Conc 35 gm/dL (32-36); Mean Corpuscular Hemoglobin 28 pg (26-34); Mean Corpuscular Volume 80 fL (80-100); Monocytes Percent Auto 6.3 % (0.0-11.0); Neutrophils Percent Auto 87.3 % (42.0-72.0); Platelet Count* 361 K/uL (140-440); RDW Coefficient of Variation % 11.9 % (11.5-15.5); White Blood Count* 16.56 K/uL (4.50-11.00)
[2024-01-16 10:52] LABS: Slide Review Reflex No
[2024-01-16] MEDS: 0.9 % SODIUM CHLORIDE 1000 ml 1,000 ML IV ×2 (10:55→11:55)
[2024-01-16 11:05] LABS: Albumin* 5.5 g/dL (3.3-5.0); Chloride* 103 mmol/L (96-114)
[2024-01-16 11:06] LABS: Potassium* 4.1 mmol/L (3.6-5.1); Sodium* 139 mmol/L (135-149)
[2024-01-16 11:08] LABS: Amylase* 103 U/L (18-89); Est. Creatinine Clearance* 62.31; Estimated Glomerular Filt Rate 68 ml/min
[2024-01-16 11:09] LABS: Alanine Aminotransferase* 29 U/L (4-35); Alkaline Phosphatase* 94 U/L (40-150); Anion Gap 21 mEq/L (7-15); Aspartate Amino Transferase* 24 U/L (12-35); Bilirubin Direct* 0.5 mg/dL (0.0-0.5); Bilirubin Total* 1.5 mg/dL (0.1-1.5); Blood Urea Nitrogen* 19 mg/dL (7-30); Calcium* 10.2 mg/dL (8.4-10.6); Carbon Dioxide* 15 mmol/L (20-32); Lipase* 134 U/L (23-300); Total Protein* 9.1 g/dL (6.0-8.3)
[2024-01-16 11:11] LABS: Troponin, Point-of-Care* 0.03 ng/ml (0.01-0.04)
[2024-01-16] MEDS: HYDROmorphone 0.5 mg/0.5 ml inj IVP (11:21)
[2024-01-16 11:25] LABS: Procalcitonin* 0.13 ng/mL (<0.50)
[2024-01-16 11:27] LABS: C Reactive Protein* < 0.5 mg/dL (0.5-1.0); Ethanol* < 0.01 % (0.01-0.03); Glucose* 355 mg/dL (60-115)
[2024-01-16 11:32] LABS: PCR FLU A Negative PCR FLU A (Negative); PCR FLU B Negative PCR FLU B (Negative); PCR RSV Negative PCR RSV (Negative); SARS PCR* Negative SARS-CoV-2 (Negative)
--- NOTE | 2024-01-16 11:42 | CRLHL7_ITS ---
For Patients: As a result of the Century Cures Act, medical imaging exams and procedure reports are released immediately into your electronic medical record. You may view this report before your referring provider. If you have questions, please contact your health care provider. INDICATION: UPPER ABD PAIN. N/V. TECHNIQUE: CT abdomen and pelvis acquired with 100 cc Omnipaque 350 IV contrast. COMPARISON: None. FINDINGS: Lower chest: Unremarkable. Liver: Unremarkable. Normal in size and attenuation. No suspicious masses. Gallbladder and bile ducts: Unremarkable. No stones or inflammation. No biliary dilatation. Pancreas: Unremarkable. No mass or inflammation. Spleen: Unremarkable. Normal in size. No masses. Adrenal glands: Unremarkable. No nodules. Kidneys: Unremarkable. No suspicious masses, stones, or hydronephrosis. GI tract: Colonic diverticulosis. Normal in caliber. No sign of mass or inflammation. Normal appendix. Vasculature: Abdominal aorta is normal in caliber with moderate calcified atherosclerosis. Mesenteric arteries are patent. Lymph nodes: No lymphadenopathy. Peritoneum/Abdominal Wall: Unremarkable. No sign of mass or infiltration. No free air or significant free fluid. Pelvis: Unremarkable. Bones: Moderate degenerative changes in the lower lumbar spine. IMPRESSION: No acute abnormality in the abdomen or pelvis. Please note that all CT scans at this facility use dose modulation, iterative reconstruction, and/or weight-based dosing when appropriate to reduce radiation dose to as low as reasonably achievable. Dictated by Kal Verdugo MD @ 01/16/2024 12:54:07 PM (Electronically Signed)
--- OUTSIDE RECORDS SUMMARY | 2024-01-16 11:50 | XMS_ITS | Encounter Summary ---
Author Organization [facility] Address [address] [place] [address]. [place] [address] Care Team Providers Care Molasses Feed Mixer Name Role Phone Christian Mars MD Unavailable Unavailable Coming Ana Luisa Galeana MD Primary Care Provid er Coming Ana Luisa Galeana MD Unavailable [phone] Nan Nguyen RN Unavailable Unavailable Reason for Visit * Reason Comments Medication Refill Encounter Details Date Type Department Care Team (Late st Contact Info) Description 02/18/2021 Refill [facility] [id number] [place] [address] [phone] [place] Luisa [place]iones [place] [id number] [place] [address] [id number] Medication Refill Social History Tobacco Use Types Packs/Day Years Used Date Smoking Tobacco: Former Cigarettes 1 20.3 0 11/18/1985 - 03/20/2006 Smokeless Tobacco: Never Comments:1/2-3/4 pack per da y Alcohol Use Standard Drinks/Week Comments Yes 0 (1 standard drink = 0.6 oz pur e alcohol) maybe 1 or 2 a month if that PHQ-2 Answer Date Recorded PHQ-2 Total Score (Adult) - Positive if 3 or more points; Administer PHQ-9 if positive 2 12/16/2020 Sex and Gender Information Value Date Recorded Sex Assigned at Female 09/29/2018 12:59 AM CDT Gender Identity Female 09/29/2018 12:59 AM CDT Sexual Orientation Straight 09/29/2018 12 :59 AM CDT documented as of this encounter Miscellaneous Notes * Telephone Encounter - Tesha Steinberg RN - 02/18/2021 2:24 PM CDT Routing refill request to provider for review/approval because: Drug not on the [facility] refill protocol Tesha Steinberg RN [facility] -- Triage Nurse documented in this encounter Plan of Treatment Not on file documented as of this encounter Visit Diagnoses Diagnosis Anxiety attack Panic disorder without agoraphobia Insomnia, unspecified type documented in this encounter Additional Health Concerns Assessment Noted Time PHQ-9 Depression Total Score: 6 12/18/19 21 7:03 AM CDT documented as of this encounter Care Teams [employer]er Relationship Specialty Start Date [place] [id number] [place] [address] PCP - General Family Practice 06/29/19 Christian Mars MD Family Practice 05/26/11 [place] [id number] [place] [address] Assigned PCP 07/08/19 Nan Nguyen, BERENICE 09/09/21 08/10/22 documented as of this encounter
--- OUTSIDE RECORDS SUMMARY | 2024-01-16 11:50 | XMS_ITS | Clinical Summary ---
Author Organization [facility] Address [address] [place] [address] Care Team Providers Care Reservations Agent Name Role Phone Christian Mars MD Unavailable Unavailable Coming Ana Luisa Galeana MD Primary Care Provid er Coming Ana Luisa Galeana MD Unavailable [phone] Allergies Active Allergy Reactions Criticality Noted Date Comments Niacin Hives 07/21/2020 Medications Medication Sig Dispensed Refills Start Date End Date Status HEMP OIL OR EXTRACT OR OTHER CBD CANNABINOID, NOT MEDICAL CANNABIS, Active empagliflozin (JARDIANCE) 25 MG TABS tabletIndications:Typ e 2 diabetes mellitus with hyperglycemia, without long-term current use of insulin (H) Take 1 tablet (25 mg) by mouth daily 90 tablet 1 3 Active LORazepam (ATIVAN) 1 MG tabletIndications:Anx iety attack TAKE 1 TABLET BY MOUTH EVERY 8 HOURS NEEDED FOR ANXIETY 30 tablet 1 4 Active zolpidem (AMBIEN) 10 MG tabletIndications:Ins omnia, unspecified type TAKE 1 TABLET(10 MG) BY MOUTH EVERY NIGHT NEEDED FOR SLEEP 30 tablet 5 4 Active buPROPion (WELLBUTRIN XL) 150 MG 24 hr tabletIndications:Mod erate episode of recurrent major depressive disorder (H) TAKE 1 TABLET(150 MG) BY MOUTH EVERY MORNING 90 tablet 1 4 Active metFORMIN (GLUCOPHAGE) 500 MG tabletIndications:Typ e 2 diabetes mellitus with hyperglycemia, without long-term current use of insulin (H) TAKE 2 TABLETS(1000 MG) BY MOUTH TWICE DAILY WITH MEALS 120 tablet 4 Active atorvastatin (LIPITOR) 40 MG tabletIndications:Hyp erlipidemia LDL goal <100 TAKE 1 TABLET(40 MG) BY MOUTH DAILY 90 tablet 4 Active lisinopril (ZESTRIL) 20 MG tabletIndications:Enc ounter for medication refill,Benign essential hypertension TAKE 1 TABLET(20 MG) BY MOUTH DAILY 90 tablet 4 Active PARoxetine (PAXIL) 40 MG tabletIndications:IGNACIO (generalized anxiety disorder),Current mild episode of major depressive disorder, unspecified whether recurrent (H24) TAKE 1 TABLET(40 MG) BY MOUTH AT BEDTIME 90 tablet 4 Active glimepiride (AMARYL) 4 MG tabletIndications:Unc ontrolled type 2 diabetes mellitus with hyperglycemia (H) TAKE 1 TABLET(4 MG) BY MOUTH EVERY MORNING BEFORE BREAKFAST 30 tablet 4 Active fenofibrate (TRIGLIDE/LOFIBRA) 160 MG tabletIndications:Pur e hyperglyceridemia TAKE 1 TABLET(160 MG) BY MOUTH DAILY 90 tablet 4 Active propranolol (INDERAL) 20 MG tabletIndications:Enc ounter for medication refill TAKE 1 TABLET(20 MG) BY MOUTH TWICE DAILY 180 tablet 1 4 Active fenofibrate (TRIGLIDE/LOFIBRA) 160 MG tabletIndications:Pur e hyperglyceridemia TAKE 1 TABLET(160 MG) BY MOUTH DAILY 90 tablet 3 3 01/02/20 24 Discontinued propranolol (INDERAL) 20 MG tabletIndications:Enc ounter for medication refill TAKE 1 TABLET(20 MG) BY MOUTH TWICE DAILY 180 tablet 3 3 01/04/20 24 Discontinued Active Problems Problem Noted Date Diagnosed Date Hypertriglyceridemia 12/17/2020 Hyperlipidemia LDL goal <100 12/17/2020 Type 2 diabetes mellitus wit h hyperglycemia, without long-term current use of insulin 08/23/2019 Chronic low back pain 06/28/2019 Mild major depression (H24) 06/28/2019 Benign essential hypertension 06/06/2018 Menopause 01/18/2018 IGNACIO (generalized anxiety disorder) 12/28/2016 Hyperhidrosis of face 12/28/2016 Insomnia 07/19/2005 Overview: Problem list name updated by automated process. Provider to review Resolved Problems Problem Noted Date Diagnosed Date Resolved Date Anxiety attack 05/05/2016 12/28/2016 Pancreatitis 04/03/2015 02/11/2016 Backache 07/19/2005 05/25/2017 Overview: Problem list name updated by automated process. Provider to review Encounters Date Type Department Care Team Description 01/02/[address] [address] Ana Luisa Briones MD Medication Refill 11/12/[address] [address] Ana Luisa Briones MD Medication Refill 11/09/2023 MyC Medical Advice [address] [phone] Johanne Sprague from Last 3 Months Immunizations Name Administration Dates Next Due COVID-19 Monovalent 12+ (Pfizer 2021) 10/13/2021 COVID-19 Vaccine (Rufus) 10/29/2020 Hepatitis B, Adult 10/13/2021 Pneumococcal 23 valent 09/22/2016 TD,PF 7+ (Tenivac) 06/20/2002 TDAP Vaccine (Boostrix) 12/28/2016 Family History Medical History Relation Comments Depression Brother Genetic Disorder Brother Epilepsy w/anum re brain damage Osteoporosis Brother Seizure Disorder Brother Other Cancer Cousin Tongue CA Alcoholism Father Anesthesia Reaction Father Due to alcoh ol withdrawl Anxiety Disorder Father Coronary Artery Disease Father triple b y-pass w/pig valve replacement Depression Father Diabetes Father Hyperlipidemia Father Hypertension Father Substance Abuse Father C.A.D. Maternal Grandfather 50's [place] Coronary Artery Disease Maternal Grandfather Hea rt Attack Myocardial Infarction Maternal Grandfather Osteoporosis Maternal Grandmother Breast Cancer Mother Bilateral Mastec sridevi w/TRAM flap reconstruction Coronary Artery Disease Mother CHF - pa ssed away Jan 20 2020 Depression Mother Hyperlipidemia Mother Hypertension Mother Substance Abuse Mother Heart Disease Other 1 Myocardial Infarction Other 1 Breast Cancer Other 2 2 Lumpectomies Prostate Cancer Paternal Grandfather Cancer Paternal Grandmother bladder can cer Cerebrovascular Disease Paternal Grandmother Anesthesia Reaction Sister Vomiting/lot s of dizziness after procedure Anxiety Disorder Sister Hyperlipidemia Sister Hypertension Sister Asthma Son Diabetes No family hx of Relation Status Comments Brother Cousin Father Maternal Grandfather Maternal Grandmother Mother Other 1 Alive Other 2 Paternal Grandfather Paternal Grandmother Sister Son Social History Tobacco Use Types Packs/Day Years Used Date Smoking Tobacco: Former Cigarettes 1 20.3 0 11/18/1985 - 03/20/2006 Smokeless Tobacco: Never Tobacco Cessation:Counseling Given: Not Answered Comments:1/2-3/4 pack per day Alcohol Use Standard Drinks/Week Comments Yes 0 (1 standard drink = 0.6 oz pur e alcohol) maybe 1 or 2 a month if that Social Connection and Isolat ion Panel [NHANES] Answer Date Recorded In a typical week, how many times do you talk on the phone with family, friends, or neighbors? More than three times a week 10/12/2021 How often do you get togethe r with friends or relatives? Once a week 10/12/2021 How often do you attend [facility] or scientology services? Never 10/12/2021 Do you belong to any clubs o r organizations such as hinduism groups, unions, fraternal or athletic groups, or school groups? No 10/12/2021 Attends Club or Organization Meetings Not on namrata e 10/12/2021 Are you , , di vorced, , never , or living with a partner? 10/12/2021 AUDIT-C Answer Date Recorded Q1: How often do you have a drink containing alc ohol? Monthly or less 10/12/2021 Q2: How many drinks containi ng alcohol do you have on a typical day when you are drinking? 3 or 4 10/12/2021 Q3: How often do you have si x or more drinks on one occasion? Less than monthly 10/12/2021 PHQ-2 Answer Date Recorded PHQ-2 Score 2 11/09/2023 [facility] Occupat ional Health - Occupational Stress Questionnaire Answer Date Recorded Do you feel stress - tense, restless, nervous, or anxious, or unable to sleep at night because your mind is troubled all the time - these days? To some extent 10/12/2021 Exercise Vital Sign Answer Date Recorde d On average, how many days pe r week do you engage in moderate to strenuous exercise (like a brisk walk)? 0 days 10/12/2021 On average, how many minutes do you engage in exercise at this level? 0 min 10/12/2021 Adolescent Education Answer Date Record ed Getting School Help Needed Not on file 03/11 Food Insecurity Answer Date Recorded Within the past 12 months, d id you worry that your food would run out before you got money to buy more? No 06/09/2023 Within the past 12 months, d id the food you bought just not last and you didn? t have money to get more? No 06/09/2023 Housing Stability Answer Date Recorded Do you have housing? (Jovanny g is defined as stable permanent housing and does not include staying ouside in a car, in a tent, in an abandoned building, in an overnight detention, or couch-surfing.) Yes 06/09/2023 Are you worried about losing your housing? No 06/09/2023 Financial Resource Strain Answer Date R ecorded Within the past 12 months, h ave you or your family members you live with been unable to get utilities (heat, electricity) when it was really needed? No 06/09/2023 Transportation Needs Answer Date Record ed Within the past 12 months, h as lack of transportation kept you from medical appointments, getting your medicines, non-medical meetings or appointments, work, or from getting things that you need? No 06/09/2023 Interpersonal Safety Answer Date Record ed Do you feel physically and e motionally safe where you currently live? Yes 06/15/2023 Within the past 12 months, h ave you been hit, slapped, kicked or otherwise physically hurt by someone? No 06/15/2023 Within the past 12 months, h ave you been humiliated or emotionally abused in other ways by your partner or ex-partner? No 06/15/2023 Sex and Gender Information Value Date Recorded Sex Assigned at Female 09/29/2018 12:59 AM CDT Gender Identity Female 09/29/2018 12:59 AM CDT Sexual Orientation Straight 09/29/2018 12 :59 AM CDT Last Filed Vital Signs Vital Sign Reading Time Taken Comments Blood Pressure 161/94 06/15/2023 10:31 AM INTELLIGENCE ENGINEER Pulse 61 06/15/2023 10:26 AM INTELLIGENCE ENGINEER Temperature 36.7 ??C (98 ??F) 06/15/2023 10:26 AM INTELLIGENCE ENGINEER Respiratory Rate 17 06/15/2023 10:26 AM INTELLIGENCE ENGINEER Oxygen Saturation 98% 06/15/2023 10:26 AM INTELLIGENCE ENGINEER Inhaled Oxygen Concentration - - Weight 86.2 kg (190 lb) 06/15/2023 10:26 AM INTELLIGENCE ENGINEER Height 167.6 cm (5' 6) 06/15/2023 10:26 AM INTELLIGENCE ENGINEER Body Mass Index 30.67 06/15/2023 10:26 AM INTELLIGENCE ENGINEER Plan of Treatment Health Maintenance Due Date Last Done Comments CT COLONOGRAPHY 1972 FIT 1972 FLEX SIG 1972 COLONOSCOPY 1982 Pneumococcal Vaccine: Pediatrics (0 to 5 Years) and At-Risk Patients (6 to 64 Years) (2 of 2 - PCV) 09/22/2017 09/22/2016 HEPATITIS B IMMUNIZATION (2 of 3 - 19+ 3-dose series) 11/10/2021 10/13/2021 ZOSTER IMMUNIZATION (1 of 2) 2022 EYE EXAM 10/03/2022 10/03/2021, 09/18, 10/03/2020, Additional history exists YEARLY PREVENTIVE VISIT 10/13/2022 10/14/19, 08/23/2019, 08/23/2019, Additional history exists COVID-19 Vaccine (2022- season) 2023 10/13/2021, 10/29/2020 MAMMO SCREENING 03/12/2023 03/12/2022, 11/20, 01/04/2019 DEPRESSION 6 MO INDEX REPEAT PHQ-9 11/23/2023 11/09/2023, 09/26/2023, 06/15/2023, Additional history exists ANNUAL REVIEW OF HM ORDERS 12/09/202312/08, 10/13/2021, 07/02/2020, Additional history exists DIABETIC FOOT EXAM 12/09/2023 12/08/2022, 0 12/08/2022, 12/17/2020, Additional history exists MICROALBUMIN 12/09/2023 12/08/2022, 0402/2022, 12/05/2019, Additional history exists A1C 12/15/2023 06/15/2023, 2 06/2022, 02/15/2022, Additional history exists INFLUENZA VACCINE (#1) 2024 (Declined), 06/06/2018 (Declined) PHQ-9 05/11/2024 11/09/2023, 04/0 01/2024, 06/15/2023, Additional history exists BMP 06/15/2024 06/15/2023, 2 06/2022, 10/06/2021, Additional history exists LIPID 06/15/2024 06/15/2023, 2 06/2022, 02/15/2022, Additional history exists COLORECTAL CANCER SCREENING 12/27/2025 sDNA (Cologuard) 12/27/2025 12/27/2022, 12/27/2022 ADVANCE CARE PLANNING 10/13/2026 10/13/2021 DTAP/TDAP/TD IMMUNIZATION (2 - Td or Tdap) 12/28/2026 12/28/2016, 06/20/2002 HEPATITIS C SCREENING Completed 05/20/2008 HIV SCREENING Completed 05/20/2008 DEPRESSION ACTION PLAN Completed 06/06/2018 HPV IMMUNIZATION Aged Out No longer e ligible based on patient's age to complete this topic IPV IMMUNIZATION Aged Out No longer e ligible based on patient's age to complete this topic MENINGITIS IMMUNIZATION Aged Out No l onger eligible based on patient's age to complete this topic PAP Discontinued RSV MONOCLONAL ANTIBODY Aged Out No l onger eligible based on patient's age to complete this topic Procedures Procedure Name Priority Date/Time Associated Diagnosis Comments LIPID REFLEX TO DIRECT LDL PANEL Add-On 06/15/2023 10:40 AM INTELLIGENCE ENGINEER Hyperlipidemia LDL goal <100 BASIC METABOLIC PANEL Add-On 06/15/2023 10:40 AM INTELLIGENCE ENGINEER Fatigue, unspecified type HEMOGLOBIN A1C Routine 06/15/2023 10:40 AM INTELLIGENCE ENGINEER Type 2 diabetes mellitus with hyperglycemia, without long-term current use of insulin (H) COLOGUARD([employer]) Routine 12/27/2022 10:40 AM CDT Colon cancer screening ALBUMIN RANDOM URINE QUANTITATIVE Routine 12/08/2022 11:13 AM CDT Type 2 diabetes mellitus with hyperglycemia, without long-term current use of insulin (H) MA SCREENING BILATERAL W/ NAVEED Routine 03/12/2022 10:56 AM CDT Visit for screening mammogram EYE EXAM - HIM SCAN Routine 10/03/2021 HIV 1 AND 2 ANTIBODY (QUEST) Routine 05/20/2008 8:07 AM INTELLIGENCE ENGINEER HEPATITIS C ANTIBODY Routine 05/20/2008 8:07 AM INTELLIGENCE ENGINEER from Last 3 Months or Most Recently Relevant to Health Maintenance Results * (ABNORMAL) Lipid panel reflex to direct LDL Fasting (06/15/2023 10:40 AM INTELLIGENCE ENGINEER) Cholesterol 139 <200 mg/dL 06/15/2023 6:13 PM INTELLIGENCE ENGINEER [facility] Triglycerides 1,116(H) <150 mg/dL 06/15/2023 6:13 PM INTELLIGENCE ENGINEER [facility] Direct Measure HDL 20(L) >=50 mg/dL 06/15/2023 6:13 PM INTELLIGENCE ENGINEER [facility] LDL Cholesterol Calculated 06/15/2023 6:13 PM INTELLIGENCE ENGINEER [facility] Comment:Cannot estimate LDL when triglyceride exceeds 400 mg/dL Non HDL Cholesterol 119 <130 mg/dL 06/15/2023 6:13 PM INTELLIGENCE ENGINEER [facility] Blood BLOOD SPECIMEN / Unknown Venipuncture / Unknown 06/15/2023 10:40 AM INTELLIGENCE ENGINEER 06/15/2023 10:40 AM INTELLIGENCE ENGINEER Narrative [facility] - 06/15/2023 6:13 PM INTELLIGENCE ENGINEER Cholesterol Desirable: ??<200 mg/dL Triglycerides Normal: ??Less than 150 mg/dL Borderline High: ??150-199 mg/dL High: ??200-499 mg/dL Very High: ??Greater than or equal to 500 mg/dL Direct Measure HDL Female: ??Greater than or equal to 50 mg/dL Male: ??Greater than or equal to 40 mg/dL LDL Cholesterol Desirable: ??<100mg/dL Above Desirable: ??100-129 mg/dL Borderline High: ??130-159 mg/dL High: ??160-189 mg/dL Very High: ??>= 190 mg/dL Non HDL Cholesterol Desirable: ??130 mg/dL Above Desirable: ??130-159 mg/dL Borderline High: ??160-189 mg/dL High: ??190-219 mg/dL Very High: ??Greater than or equal to 220 mg/dL September Monika Galeana MD LAB - BLOOD ORDERABLES [facility] [address], [address] [place] [address], [place] [phone] * (ABNORMAL) Hemoglobin A1c (06/15/2023 10:40 AM INTELLIGENCE ENGINEER) Hemoglobin A1C 9.6(H) 0.0 - 5.6 % 06/15/2023 11:17 AM INTELLIGENCE ENGINEER [facility] Comment: Normal <5.7% Prediabetes 5.7-6.4% ?? Diabetes 6.5% or higher Note: Adopted from ADA consensus guidelines. Blood BLOOD SPECIMEN / Unknown Venipuncture / Unknown 06/15/2023 10:40 AM INTELLIGENCE ENGINEER 06/15/2023 10:40 AM INTELLIGENCE ENGINEER [facility] - 06/15/2023 11:17 AM INTELLIGENCE ENGINEER Results confirmed by repeat test. Ana Luisa Monika Galeana MD LAB - BLOOD ORDERABLES [facility] [address] [facility] (no room number, 1st floor of clinic) [place] [address], [place] [phone] * (ABNORMAL) Basic metabolic panel (Ca, Cl, CO2, Creat, Gluc, K, Na, BUN) (06/15/2023 10:40 AM INTELLIGENCE ENGINEER) Sodium 135 135 - 145 mmol/L 06/15/2023 5:59 PM INTELLIGENCE ENGINEER [facility] Comment:Reference intervals for this test were updated on 03/15/2023 to more accurately reflect our healthy population. There may be differences in the flagging of prior results with similar values performed with this method. Interpretation of those prior results can be made in the context of the updated reference intervals. Potassium 4.5 3.4 - 5.3 mmol/L 06/15/2023 5:59 PM INTELLIGENCE ENGINEER [facility] Chloride 103 98 - 107 mmol/L 06/15/2023 5:59 PM INTELLIGENCE ENGINEER [facility] Carbon Dioxide (CO2) 19(L) 22 - 29 mmol/L 06/15/2023 5:59 PM INTELLIGENCE ENGINEER [facility] Anion Gap 13 7 - 15 mmol/L 06/15/2023 5:59 PM INTELLIGENCE ENGINEER [facility] Urea Nitrogen 10.4 6.0 - 20.0 mg/dL 06/15/2023 5:59 PM INTELLIGENCE ENGINEER [facility] Creatinine 0.64 0.51 - 0.95 mg/dL 06/15/2023 5:59 PM INTELLIGENCE ENGINEER [facility] GFR Estimate >90 >60 mL/min/1. 73m2 06/15/2023 5:59 PM INTELLIGENCE ENGINEER [facility] Calcium 9.4 8.6 - 10.0 mg/dL 06/15/2023 5:59 PM INTELLIGENCE ENGINEER [facility] Glucose 301(H) 70 - 99 mg/dL 06/15/2023 5:59 PM INTELLIGENCE ENGINEER [facility] Blood BLOOD SPECIMEN / Unknown Venipuncture / Unknown 06/15/2023 10:40 AM INTELLIGENCE ENGINEER 06/15/2023 10:40 AM INTELLIGENCE ENGINEER September Monika Galeana MD LAB - BLOOD ORDERABLES [facility] [address], [address] [place] [address], [facility] [phone] * COLOGUARD(Relative.ai) (12/27/2022 10:40 AM CDT) COLOGUARD-ABSTRACT Negative Negative 2022 10:58 AM CDT [facility] (CLIA #:[id number]) Comment: NEGATIVE TEST RESULT. A negative Cologuard result indicates a low likelihood that a colorectal cancer (CRC) or advanced adenoma (adenomatous polyps with more advanced pre-malignant features) ??is present. The chance that a person with a negative Cologuard test has a colorectal cancer is less than 1 in 1500 (negative predictive value >99.9%) or has an ??advanced adenoma is less than ??5.3% (negative predictive value 94.7%). These data are based on a prospective cross-sectional study of 10,000 individuals at average risk for colorectal cancer who were screened with both Cologuard and colonoscopy. (Layla Herrera al, N Engl J Med 2014;370(14):1286- 1297) The normal value (reference range) for this assay is negative. COLOGUARD RE-SCREENING RECOMMENDATION: Periodic colorectal cancer screening is an important part of preventive healthcare for asymptomatic individuals at average risk for colorectal cancer. ??Following a negative Cologuard result, the [place] [employer] Society and U.S. Multi-Society Task Force screening guidelines recommend a Cologuard re-screening interval of 3 years. References: [place] [employer] Guideline for Colorectal Cancer Screening: https://www.cancer.org/cancer/grcfc-ernhen-tkzekm/qprdkchzz-xaerzjlce-chitzcn/ac s-rec ommendations.html.; Matt DK, Laura CR, Bienvenido GilbertK, Colorectal Cancer Screening: Recommendations for Physicians and Patients from the U.S. Multi-Society Task Force on Colorectal Cancer Screening , Am J Gastroenterology 2017; 112:1889-3297. TEST DESCRIPTION: Composite algorithmic analysis of stool DNA-biomarkers with hemoglobin immunoassay. ?? Quantitative values of individual biomarkers are not reportable and are not associated with individual biomarker result reference ranges. Cologuard is intended for colorectal cancer screening of adults of either sex, 45 years or older, who are at average-risk for colorectal cancer (CRC). Cologuard has been approved for use by the U.S. FDA. The performance of Cologuard was established in a cross sectional study of average-risk adults aged 50-84. Cologuard performance in patients ages 45 to 49 years was estimated by sub-group analysis of near-age groups. Colonoscopies performed for a positive result may find as the most clinically significant lesion: colorectal cancer [4.0%], advanced adenoma (including sessile serrated polyps greater than or equal to 1cm diameter) [20%] or non- advanced adenoma [31%]; or no colorectal neoplasia [45%]. These estimates are derived from a prospective cross-sectional screening study of 10,000 individuals at average risk for colorectal cancer who were screened with both Cologuard and colonoscopy. (Layla Herrera al, N Engl J Med 2014;370(14):8401-7600.) Cologuard may produce a false negative or false positive result (no colorectal cancer or precancerous polyp present at colonoscopy follow up). A negative Cologuard test result does not guarantee the absence of CRC or advanced adenoma (pre-cancer). The current Cologuard screening interval is every 3 years. ([place] [employer] and U.S. Multi-Society Task Force). Cologuard performance data in a 10,000 patient pivotal study using colonoscopy as the reference method can be accessed at the following location: [email or web address]/results. Additional description of the Cologuard test process, warnings and precautions can be found at www.[employer]. Stool specimen (specimen) 12/27/2022 10:40 AM CDT 12/28/2022 10:28 PM CDT September Monika Galeana MD LABORATORY [facility] [address] [place] [address], [facility] [phone] [facility] (CLIA #:[id number]) [address] [place] [address] * Albumin Random Urine Quantitative with Creat Ratio (12/08/2022 11:13 AM CDT) Creatinine Urine mg/dL 22.5 mg/dL 12/08/2022 8:02 PM CDT [facility] Comment:The reference ranges have not been established in urine creatinine. The results should be integrated into the clinical context for interpretation. Albumin Urine mg/L <12.0 mg/L 2022 8:02 PM CDT [facility] Comment:The reference ranges have not been established in urine albumin. The results should be integrated into the clinical context for interpretation. Albumin Urine mg/g Cr 12/08/2022 8:02 PM CDT [facility] Comment: Unable to calculate, urine albumin and/or urine creatinine is outside detectable limits. Microalbuminuria is defined as an albumin:creatinine ratio of 17 to 299 for males and 25 to 299 for females. A ratio of albumin:creatinine of 300 or higher is indicative of overt proteinuria. Due to biologic variability, positive results should be confirmed by a second, first-morning random or 24-hour timed urine specimen. If there is discrepancy, a third specimen is recommended. When 2 out of 3 results are in the microalbuminuria range, this is evidence for incipient nephropathy and warrants increased efforts at glucose control, blood pressure control, and institution of therapy with an [id number] (RAFAEL) inhibitor (if the patient can tolerate it). ?? Urine URINE SPECIMEN / Unknown Non-blood Collection / Unknown 12/08/2022 11:13 AM CDT 12/08/2022 12:21 PM CDT September Monika Galeana MD LAB - URINE ORDERABLES [facility] [address], [address] [place] [address], [facility] [phone] * MA Screen Bilateral w/Naveed (03/12/2022 10:56 AM CDT) Anatomical Region Laterality Modality Breast Bilateral Mammography Impressions 03/12/2022 3:26 PM CDT IMPRESSION: ACR BI-RADS Category 1: Negative RECOMMENDED FOLLOW-UP: Annual routine screening mammogram The results and recommendations of this examination will be communicated to the patient. Narrative 03/12/2022 3:26 PM CDT BILATERAL FULL FIELD DIGITAL SCREENING MAMMOGRAM WITH TOMOSYNTHESIS Performed on: 03/12/22 Compared to: 12/17/2020, 01/15/2019, and 01/04/2019 Technique: ??This study was evaluated with the assistance of Computer-Aided Detection. ??Breast Tomosynthesis was used in interpretation. Findings: The breasts are heterogeneously dense, which may obscure small masses. ??There is no radiographic evidence of malignancy. September Monika Galeana MD IMG MAMMOGRA PHY ORDERABLES * Eye Exam - HIM Scan (10/03/2021) RETINOPATHY UNKNOWN Narrative Joceline Lindquist - 10/03/2021 Date of last eye exam [facility] approx. 10-03-21 Patient Reported OTHER * HIV 1 and 2 Antibody (05/20/2008 8:07 AM INTELLIGENCE ENGINEER) Pathologist [facility] [place] HIV 1&2 Antibody Negative NEG MISYS 05/20/2008 8:07 AM INTELLIGENCE ENGINEER 05/15/2008 7:02 AM INTELLIGENCE ENGINEER Rio Melvin MD LAB - BLOOD ORDERABL ES MISYS * Hepatitis C antibody (05/20/2008 8:07 AM INTELLIGENCE ENGINEER) Pathologist [facility] Hepatitis C Antibody Negative NEG MISYS 05/20/2008 8:07 AM INTELLIGENCE ENGINEER 05/15/2008 7:02 AM INTELLIGENCE ENGINEER Rio Melvin MD LAB - BLOOD ORDERABL ES MISYS from Last 3 Months or Most Recently Relevant to Health Maintenance Advance Directives For more information, please contact: [phone] * Full Code (Latest Code Status on File) Date Activated Date Inactivated Comments 04/03/2015 9:33 PM 04/07/2015 4:02 PM Care Teams Reservations Agent Relationship Specialty Start Date [place] [address] [address] [place] [address] PCP - General Family Practice 06/29/19 Christian Mars MD Family Practice 05/26/11 [place] [address] [place] [address] Assigned PCP 07/08/19
--- OUTSIDE RECORDS SUMMARY | 2024-01-16 11:50 | XMS_ITS | Encounter Summary ---
Author Organization [facility] Address [address] [place] [address] Care Team Providers Care Natural Foods Clerk Name Role Phone Christian Mars MD Unavailable Unavailable Coming Ana Luisa Galeana MD Primary Care Provid er Coming Ana Luisa Galeana MD Unavailable +[phone]- [phone] Encounter Details Date Type Department Care Team (Late st Contact Info) Description 11/09/2023 [facility] Advice [address] [phone] Johanne Sprague Social History Tobacco Use Types Packs/Day Years [...] week 10/12/2021 How often do you attend chur ch or confucianism services? Never 10/12/2021 Do you belong to any clubs o r organizations such as tenriism groups, unions, fraternal or athletic groups, or [...] Answer Date Recorded PHQ-2 Score 2 11/09/2023 [facility] [place] of Occupat ional Health - Occupational Stress [...] Answer Date Recorded Do you have housing? (Nayanin g is defined as stable permanent housing and does not include staying ouside in a car, in a tent, in an abandoned building, in an overnight long term, or couch-surfing.) Yes 06/09/2023 Are you worried [...] AM CDT documented as of this encounter Plan of Treatment Not on file documented as of this encounter Visit Diagnoses Not on filedocumented in this encounter Additional Health Concerns Assessment Noted Time PHQ-9 Depression Total Score: 9 09/26/19 24 11:29 AM CDT documented as of this encounter Care Teams Natural Foods Clerk Relationship Specialty Start Date [place] [address] [place] [address] PCP - General Family Practice 06/29/19 Christian Mars MD [place] Family Practice 05/26/11 [place] [address] [facility] [place] [address] Assigned PCP 07/08/19 documented as of this encounter
--- OUTSIDE RECORDS SUMMARY | 2024-01-16 11:50 | XMS_ITS | Encounter Summary ---
Author Organization [facility] Address [address] [place] [address] Care Team Providers Care Bail Attacher Name Role Phone Christian Mars MD Unavailable Unavailable Coming Ana Luisa Galeana MD Primary Care Provid er Coming Ana Luisa Galeana MD Unavailable +1- [phone] Nan Nguyen RN Unavailable Unavailable Reason for Visit * Reason Onset Date Comments Refill Request 06/05/2022 Encounter Details Date Type Department Care Team (Late st Contact Info) Description 06/05/2022 MyC Refill [address] [address] [place] Luisa Briones [place] [id number] [place] [address] [phone] Refill Request Social History Tobacco Use Types Packs/Day Years [...] often do you attend chur ch or taoist services? Never 10/12/2021 Do you belong to any clubs o r organizations such as jainism groups, unions, fraternal or athletic groups, or [...] on one occasion? Less than monthly 10/12/2021 Overall Financial Resource Strain (CARDIA) Answe r Date Recorded How hard is it for you to pa y for the very basics like food, housing, medical care, and heating? Not hard at all 10/12/2021 PHQ-2 Answer Date Recorded PHQ-2 Score 3 03/26/2022 [facility] of Occupat ional Health - Occupational Stress [...] exercise at this level? 0 min 10/12/2021 Hunger Vital Sign Answer Date Recorded Within the past 12 months, y ou worried that your food would run out before you got the money to buy more. Never true 10/13/19 22 Within the past 12 months, t he food you bought just didn't last and you didn't have money to get more. Never true 10/12/2021 PRAPARE - Transportation Answer Date Re corded In the past 12 months, has l ack of transportation kept you from medical appointments or from getting medications? No 09/19 In the past 12 months, has l ack of transportation kept you from meetings, work, or from getting things needed for daily living? No 10/12/2021 Housing Stability Vital Sign Answer Cali e Recorded In the last 12 months, was t here a time when you were not able to pay the mortgage or rent on time? No 10/12/2021 In the last 12 months, how many places have you lived? 1 10/12/2021 In the last 12 months, was t here a time when you did not have a steady place to sleep or slept in a residential (including now)? No 10/12/2021 Sex and Gender Information Value Date Recorded Sex Assigned at Female 09/29/2018 12:59 AM CDT Gender Identity Female 09/29/2018 12:59 AM CDT Sexual Orientation Straight 09/29/2018 12 :59 AM CDT documented as of this encounter Miscellaneous Notes * Telephone Encounter - Polly Huerta RN - 06/07/2022 11:54 AM ASSURANCE SPECIALIST Prescription approved per [facility] Refill Protocol. Polly Huerta RN RANCE SPECIALIST documented in this encounter Plan of Treatment Not on file documented as of this encounter Visit Diagnoses Diagnosis Type 2 diabetes mellitus without complication, without long-term current use of insulin (H) documented in this encounter Additional Health Concerns Assessment Noted Time PHQ-9 Depression Total Score: 11 022 9:30 AM CDT documented as of this encounter Care Teams Bail Attacher Relationship Specialty Start Date [place] [address] [place] [address] PCP - General Family Practice 06/29/19 Christian Mars MD Family Practice 05/26/11 [place] [address] [place] [address] Assigned PCP 07/08/19 Nan Nguyen, BERENICE 09/09/21 08/10/22 documented as of this encounter
--- OUTSIDE RECORDS SUMMARY | 2024-01-16 11:50 | XMS_ITS | Encounter Summary ---
Author Organization [facility] Address [address] [place] [address]. [place] [address] Care Team Providers Care Hand Surgeon Name Role Phone Christian Mars MD Unavailable Unavailable Coming Ana Luisa Galeana MD Primary Care Provid er Coming Ana Luisa Galeana MD Unavailable [phone]- [phone] Nan Nguyen RN Unavailable Unavailable Reason for Visit * Reason Comments Medication Refill Encounter Details Date Type Department Care Team (Late st Contact Info) Description 03/08/2021 Refill [facility] [id number] [place] [phone] [place]isa [place]iones [place] [id number] [place] [place] [address] [phone] Medication Refill Social History Tobacco Use Types [...] encounter Miscellaneous Notes * Telephone Encounter - Zuly Guerrero RN - 03/10/2021 1:26 PM CDT Images from the original note were not included. Routing refill request to provider for review/approval because: SSRIs Protocol [id number]/08/2021 03:26 AM PHQ-9 score less than 5 in past 6 months PHQ 07/21/2020 08/18/2020 12/16/2020 PHQ-9 Total Score 4 5 6 Q9: Thoughts of better off /self-harm past 2 weeks Not at all Not at all Not at all F/U: Thoughts of suicide or self-harm - - - F/U: Safety concerns - - - Zuly Guerrero RN documented in this encounter Plan of Treatment Not on file documented as of this encounter Visit Diagnoses Diagnosis IGNACIO (generalized anxiety disorder) Generalized anxiety disorder Current mild episode of major depressive disorder, unspecified whether recurrent (H24) documented in this encounter Additional Health Concerns Assessment Noted Time PHQ-9 Depression Total Score: 6 12/18/19 21 7:03 AM CDT documented as of this encounter Care Teams Hand Surgeon Relationship Specialty Start Date [place] [address] [place] [address] PCP - General Family Practice 06/29/19 Christian Mars MD [place] Family Practice 05/26/11 [place] [address] [place] [address] Assigned PCP 07/08/19 Nan Nguyen, RN 09/09/21 08/10/22 documented as of this encounter
--- OUTSIDE RECORDS SUMMARY | 2024-01-16 11:50 | XMS_ITS | Encounter Summary ---
Author Organization [facility] Address [address] [place] [address] Care Team Providers Care Medical Screener Name Role Phone Christian Mars MD Unavailable Unavailable Coming Ana Luisa Galeana MD Primary Care Provid er Coming Ana Luisa Galeana MD Unavailable [phone]- [phone] Nan Nguyen RN Unavailable Unavailable Reason for Visit * Reason Onset Date Comments Refill Request 01/17/2022 Encounter Details Date Type Department Care Team (Late st Contact Info) Description 01/17/2022 MyC Refill [address] [phone] [place] Luisa [place]iones [place] [id number] [place] [address] [phone] Refill Request Social History Tobacco Use Types [...] often do you attend chur ch or jew services? Never 10/12/2021 Do you belong to any clubs o r organizations such as latter day groups, unions, fraternal or athletic groups, or [...] 10/12/2021 PHQ-2 Answer Date Recorded PHQ-2 Score 1 10/13/2021 [facility] of Occupat ional Health - Occupational Stress [...] place to sleep or slept in a nursing home (including now)? No 10/12/2021 Sex and Gender Information Value Date Recorded Sex Assigned at Female 09/29/2018 12:59 AM CDT Gender Identity Female 09/29/2018 12:59 AM CDT Sexual Orientation Straight 09/29/2018 12 :59 AM CDT documented as of this encounter Plan of Treatment Not on file documented as of this encounter Visit Diagnoses Diagnosis Anxiety attack Panic disorder without agoraphobia documented in this encounter Additional Health Concerns Assessment Noted Time PHQ-9 Depression Total Score: 5 10/14/19 22 7:02 AM CDT documented as of this encounter Care Teams Medical Screener Relationship Specialty Start Date [place] [address] [place] [address] PCP - General Family Practice 06/29/19 Christian Mars MD [place] Family Practice 05/26/11 [place] [address] [place] [address] Assigned PCP 07/08/19 Nan Nguyen, BERENICE 09/09/21 08/10/22 documented as of this encounter
--- OUTSIDE RECORDS SUMMARY | 2024-01-16 11:50 | XMS_ITS | Encounter Summary ---
Author Organization [facility] Address [address] [place] [address]. [place] [address] Care Team Providers Care Screen Print Operator Name Role Phone Christian Mars MD Unavailable Unavailable Coming Ana Luisa Galeana MD Primary Care Provid er Coming Ana Luisa Galeana MD Unavailable +1- [phone] Nan Nguyen RN Unavailable Unavailable Reason for Visit * Reason Comments Medication Refill Encounter Details Date Type Department Care Team (Late st Contact Info) Description 10/08/[address] [phone] Ovidio Ewing PA-C [address] [place] [address] Medication Refill Social History Tobacco Use Types Packs/Day Years Used Date Smoking Tobacco: Former Cigarettes 1 20.3 0 11/18/1985 - 03/20/2006 Smokeless Tobacco: Never Comments:1/2-3/4 pack per da y Alcohol Use Standard Drinks/Week Comments Yes 0 (1 standard drink = 0.6 oz pur e alcohol) maybe 1 or 2 a month if that PHQ-2 Answer Date Recorded PHQ-2 Score 1 08/18/2020 Sex and Gender Information Value Date Recorded Sex Assigned at Female 09/29/2018 12:59 AM CDT Gender Identity Female 09/29/2018 12:59 AM CDT Sexual Orientation Straight 09/29/2018 12 :59 AM CDT documented as of this encounter Plan of Treatment Not on file documented as of this encounter Visit Diagnoses Diagnosis Insomnia, unspecified type documented in this encounter Additional Health Concerns Assessment Noted Time PHQ-9 Depression Total Score: 5 08/19/19 21 1:08 PM LUCERNE FARMER documented as of this encounter Care Teams Screen Print Operator Relationship Specialty Start Date [place] [address] [place] [address] PCP - General Family Practice 06/29/19 Christian Mars MD [place] Family Practice 05/26/11 [place] [address] [place] [address] Assigned PCP 07/08/19 Nan Nguyen, RN 09/09/21 08/10/22 documented as of this encounter
--- OUTSIDE RECORDS SUMMARY | 2024-01-16 11:50 | XMS_ITS | Encounter Summary ---
Author Organization [facility] Address [address] [place] [address] Care Team Providers Care Billing Analyst Name Role Phone Christian Mars MD Unavailable Unavailable Coming Ana Luisa Galeana MD Primary Care Provid er Coming Ana Luisa Galeana MD Unavailable [phone]- [phone] Nan Nguyen RN Unavailable Unavailable Reason for Visit * Reason Onset Date Comments Prior Auth - Medication 08/04/2022 INVOKANA 100 MG tablet PA APPROVED Encounter Details Date Type Department Care Team (Late st Contact Info) Description 08/04/[address] [address] [place] Luisa Briones [place] [id number] [place] [address] Prior Auth - Medication (INVOKANA 100 MG tablet PA APPROVED) Social History Tobacco Use Types Packs/Day Years [...] 10/12/2021 How often do you attend chur or faith services? Never 10/12/2021 Do you belong to any clubs o r organizations such as sikhism groups, unions, fraternal or athletic groups, or [...] Answer Date Recorded PHQ-2 Score 3 03/26/2022 [facility] - Occupational Stress Questionnaire Answer Date Recorded [...] place to sleep or slept in a fpc (including now)? No 10/12/2021 Sex and Gender Information Value Date Recorded Sex Assigned at Female 09/29/2018 12:59 AM CDT Gender Identity Female 09/29/2018 12:59 AM CDT Sexual Orientation Straight 09/29/2018 12 :59 AM CDT documented as of this encounter Miscellaneous Notes * Telephone Encounter - Micheline Santacruz - 08/10/2022 10:09 AM CST Images from the original note were not included. Prior Authorization Approval Authorization Effective Date: 06/20/2022 Authorization Expiration Date: 08/09/2023 Medication: INVOKANA 100 MG tablet PA APPROVED Approved Dose/Quantity: 90 Reference #: Insurance Prot-On: [employer] - [employer] [phone] Expected CoPay: CoPay Card Available: Foundation Assistance Needed: Which Pharmacy is filling the prescription (Not needed for infusion/clinic administered): [id number] [facility] [address] Pharmacy Notified: Yes Patient Notified: Comment: Pharmacy will notify patient. ICAL BIOSTATISTICIAN * Telephone Encounter - Micheline Santacruz - 08/08/2022 2:46 PM CST Images from the original note were not included. PA Initiation Medication: INVOKANA 100 MG tablet PA INITIATED Insurance Company: [employer] - Pharmacy Filling the Rx: [id number] - [place], [place] - [address] [facility] [address] Filling Pharmacy Filling Pharmacy Fax: Start Date: 08/08/2022 [place] Prior Authorization Team ICAL BIOSTATISTICIAN * Telephone Encounter - Zulema Robb - 08/04/2022 10:22 AM CST Prior Authorization Retail Medication Request Medication/Dose: INVOKANA 100 MG tablet ICD code (if different than what is on RX): Type 2 diabetes mellitus with hyperglycemia, without long-term current use of insulin (H) [E11.65] Previously Tried and Failed: Rationale: Insurance Name: [facility] Pharmacy Information (if different than what is on RX) Name: [id number] [place] - [address] [facility] [address] ICAL BIOSTATISTICIAN documented in this encounter Plan of Treatment Not on file documented as of this encounter Visit Diagnoses Not on filedocumented in this encounter Additional Health Concerns Assessment Noted Time PHQ-9 Depression Total Score: 11 022 9:30 AM CDT documented as of this encounter Care Teams Billing Analyst Relationship Specialty Start Date [place] [address] [place] [address] PCP - General Family Practice 06/29/19 Christian Mars MD [place] Family Practice 05/26/11 [place] [address] [place] [address] Assigned PCP 07/08/19 Nan Nguyen, RN 09/09/2123 documented as of this encounter
--- OUTSIDE RECORDS SUMMARY | 2024-01-16 11:50 | XMS_ITS | Encounter Summary ---
Author Organization [facility] Address [address] [place] [address]. [place] [address] Care Team Providers Care Medical Administrative Name Role Phone Christian Mars MD Unavailable Unavailable Coming Ana Luisa Galeana MD Primary Care Provid er Coming Ana Luisa Galeana MD Unavailable [phone]- [phone] Reason for Visit * Reason Comments Medication Refill Encounter Details Date Type Department Care Team (Late st Contact Info) Description 01/02/2024 Refill [facility] [address] [place] [address] [phone] Coming [place] Luisa G[place]ana [place] [id number] [place] [address] [phone] Medication Refill Social History Tobacco Use Types [...] week 10/12/2021 How often do you attend [facility] or [facility]itan services? Never 10/12/2021 Do you belong to any clubs o r organizations such as hindu groups, unions, fraternal or athletic groups, or [...] Answer Date Recorded PHQ-2 Score 2 11/09/2023 [facility] of Occupat ional Health - Occupational [...] Answer Date Recorded Do you have housing? (Housin g is defined as stable permanent housing and does not include staying ouside in a car, in a tent, in an abandoned building, in an overnight correction, or couch-surfing.) Yes 06/09/2023 Are you worried [...] as of this encounter Visit Diagnoses Diagnosis Pure hyperglyceridemia Encounter for medication refill Issue of repeat prescriptions documented in this encounter Additional Health Concerns Assessment Noted Time PHQ-9 Depression Total Score: 9 09/26/19 24 11:29 AM CDT documented as of this encounter Care Teams Medical Administrative Relationship Specialty Start Date [place] [address] [place] [address] PCP - General Family Practice 06/29/19 Christian Mars MD Family Practice 05/26/11 [place] [address] [place] [address] Assigned PCP 07/08/19 documented as of this encounter
--- OUTSIDE RECORDS SUMMARY | 2024-01-16 11:50 | XMS_ITS | Encounter Summary ---
Author Organization [place] Address [address] [place] [address]. [place] [address] Care Team Providers Care Cyber Transport Systems Specialist Name Role Phone Christian Mars MD Unavailable Unavailable Coming Ana Luisa Galeana MD Primary Care Provid er Coming Ana Luisa Galeana MD Unavailable [phone]- [phone] Nan Nguyen RN Unavailable Unavailable Reason for Visit * Reason Comments Medication Refill Encounter Details Date Type Department Care Team (Late st Contact Info) Description 08/09/2021 Refill [facility] [address] [place] [address] [phone] Ana Luisa Briones [place] [id number] [place] [address] [phone] Medication Refill Social History Tobacco Use Types Packs/Day Years Used Date Smoking Tobacco: Former Cigarettes 1 20.3 0 11/18/1985 - 03/20/2006 Smokeless Tobacco: Never Comments:1/2-3/4 pack per da y Alcohol Use Standard Drinks/Week Comments Yes 0 (1 standard drink = 0.6 oz pur e alcohol) maybe 1 or 2 a month if that PHQ-2 Answer Date Recorded PHQ-2 Score 1 07/13/2021 Sex and Gender Information Value Date Recorded Sex Assigned at Female 09/29/2018 12:59 AM CDT Gender Identity Female 09/29/2018 12:59 AM CDT Sexual Orientation Straight 09/29/2018 12 :59 AM CDT COVID-19 Exposure Response Date Recorded In the last month, have you been in contact with someone who was confirmed or suspected to have Coronavirus / COVID-19? No / Unsure 07/13/2021 1:45 PM TAXI PROPRIETOR documented as of this encounter Miscellaneous Notes * Telephone Encounter - Gissel Garcia RN - 08/10/2021 7:12 AM CST Routing refill request to provider for review/approval because: Drug not on the [facility] refill protocol Gissel Garcia RN on 08/10/2021 at 7:12 AM PROPRIETOR documented in this encounter Plan of Treatment Not on file documented as of this encounter Visit Diagnoses Diagnosis Insomnia, unspecified type documented in this encounter Additional Health Concerns Assessment Noted Time PHQ-9 Depression Total Score: 4 07/13/19 2:05 PM TAXI PROPRIETOR documented as of this encounter Care Teams Cyber Transport Systems Specialist Relationship Specialty Start Date [place] [address] [place] [address] PCP - General Family Practice 06/29/19 Christian Mars MD [facility] Practice 05/26/11 [place] [address] [place] [address] Assigned PCP 07/08/19 Nan Nguyen, BERENICE 09/09/21 08/10/22 documented as of this encounter
--- OUTSIDE RECORDS SUMMARY | 2024-01-16 11:50 | XMS_ITS | Encounter Summary ---
Author Organization [facility] Address [address] [place] [address]. [place] [address] Care Team Providers Care Computer Operations Manager Name Role Phone Christian Mars MD Unavailable Unavailable Coming Ana Luisa Galeana MD Primary Care Provid er Coming Ana Luisa Galeana MD Unavailable [phone]- [phone] Nan Nguyen RN Unavailable Unavailable Reason for Visit * Reason Comments Medication Refill Encounter Details Date Type Department Care Team (Late st Contact Info) Description 03/01/2022 Refill [facility] [address] [place] [phone] Coming [place] [id number] [place] [address] [phone] Medication Refill Social History Tobacco Use Types [...] often do you attend chur ch or anabaptist services? Never 10/12/2021 Do you belong to any clubs o r organizations such as cheondoism groups, unions, fraternal or athletic groups, or [...] PHQ-2 Answer Date Recorded PHQ-2 Score 2 02/15/2022 [facility] of Occupat ional Health - Occupational [...] place to sleep or slept in a fdc (including now)? No 10/12/2021 Sex and Gender Information Value Date Recorded Sex Assigned at Female 09/29/2018 12:59 AM CDT Gender Identity Female 09/29/2018 12:59 AM CDT Sexual Orientation Straight 09/29/2018 12 :59 AM CDT COVID-19 Exposure Response Date Recorded In the last 10 days, have yo u been in contact with someone who was confirmed or suspected to have Coronavirus/COVID-19? No / Unsure 02/15/2022 9:38 AM CDT documented as of this encounter Plan of Treatment Not on file documented as of this encounter Visit Diagnoses Diagnosis Insomnia, unspecified type documented in this encounter Additional Health Concerns Assessment Noted Time PHQ-9 Depression Total Score: 7 02/16/20 22 10:24 AM CDT documented as of this encounter Care Teams Computer Operations Manager Relationship Specialty Start Date [place] [address] [place] [address] PCP - General Family Practice 06/29/19 Christian Mars MD [place] Family Practice 05/26/11 [place] [address] [place] [address] Assigned PCP 07/08/19 Nan Nguyen, RN 09/09/21 08/10/22 documented as of this encounter
--- OUTSIDE RECORDS SUMMARY | 2024-01-16 11:50 | XMS_ITS | Encounter Summary ---
Author Organization [facility] Address [address] [place] [address] Care Team Providers Care Cadmium Liquor Maker Name Role Phone Christian Mars MD Unavailable Unavailable Coming Ana Luisa Galeana MD Primary Care Provid er Coming Ana Luisa Galeana MD Unavailable +1- [phone] Nan Nguyen RN Unavailable Unavailable Reason for Visit * Reason Comments Medication Refill Encounter Details Date Type Department Care Team (Late st Contact Info) Description 02/19/[address] [address] Ryan Galvan MD Medication Refill Social History Tobacco Use Types [...] Telephone Encounter - Tesha Steinberg RN - 02/20/2021 11:02 AM CDT Prescription approved per [facility] Refill Protocol. Tesha Steinberg, RN [facility] -- Triage Nurse documented in this encounter Plan of Treatment Not on file documented as of this encounter Visit Diagnoses Diagnosis Type 2 diabetes mellitus without complication, without long-term current use of insulin (H) documented in this encounter Additional Health Concerns Assessment Noted Time PHQ-9 Depression Total Score: 6 12/18/19 21 7:03 AM CDT documented as of this encounter Care Teams Cadmium Liquor Maker Relationship Specialty Start Date [place] [address] [place] [address] PCP - General Family Practice 06/29/19 Christian Mars MD [place] Family Practice 05/26/11 [place] [address] [place] [address] Assigned PCP 07/08/19 Nan Nguyen, BERENICE 09/09/21 08/10/22 documented as of this encounter
--- OUTSIDE RECORDS SUMMARY | 2024-01-16 11:50 | XMS_ITS | Encounter Summary ---
Author Organization [facility] Address [address] [place] [address]. [place] [address] Care Team Providers Care Etl Consultant Name Role Phone Christian Mars MD Unavailable Unavailable Coming Ana Luisa Galeana MD Primary Care Provid er Coming Ana Luisa Galeana MD Unavailable +1- [phone] Nan Nguyen RN Unavailable Unavailable Encounter Details Date Type Department Care Team (Late st Contact Info) Description 04/29/2022 [facility] Medical Advice [facility] [address] [place] [address] Khanh Ansari Social History Tobacco Use Types Packs/Day Years [...] often do you attend chur ch or scientologist services? Never 10/12/2021 Do you belong to any clubs o r organizations such as moravian groups, unions, fraternal or athletic groups, or [...] Answer Date Recorded PHQ-2 Score 3 03/26/2022 [facility] Occupat ional Health - Occupational Stress [...] place to sleep or slept in a long term (including now)? No 10/12/2021 Sex and Gender [...] documented as of this encounter Care Teams Etl Consultant Relationship Specialty Start Date [place] [address] [place] [address] PCP - General Family Practice 06/29/19 Christian Mars MD Family Practice 05/26/11 [place] [address] [place] [address] Assigned PCP 07/08/19 Nan Nguyen, RN 09/09/21 08/10/22 documented as of this encounter
--- OUTSIDE RECORDS SUMMARY | 2024-01-16 11:50 | XMS_ITS | Encounter Summary ---
Author Organization [facility] Address [address] [place] [address]. [place] [address] Care Team Providers Care Director Of Physician Practices Name Role Phone Christian Mars MD Unavailable Unavailable Coming Ana Luisa Galeana MD Primary Care Provid er Coming Ana Luisa Galeana MD Unavailable +1- [phone] Nan Nguyen RN Unavailable Unavailable Reason for Visit * Reason Comments Medication Refill Encounter Details Date Type Department Care Team (Late st Contact Info) Description 09/24/[address] [facility] [address] [place] [phone] [place] [id number] [place] [phone] Medication Refill Social History Tobacco Use Types [...] encounter Miscellaneous Notes * Telephone Encounter - Priti Sarmiento RN - 09/25/2020 1:41 PM CDT Routing refill request to provider for review/approval because: Labs not current: A1C A break in medication Failing bp Priti Sarmiento RN documented in this encounter Plan of Treatment Not on file documented as of this encounter Visit Diagnoses Diagnosis Uncontrolled type 2 diabetes mellitus with hyperglycemia (H) Encounter for medication refill Issue of repeat prescriptions documented in this encounter Additional Health Concerns Assessment Noted Time PHQ-9 Depression Total Score: 5 08/19/19 21 1:08 PM TODDLER TEACHER documented as of this encounter Care Teams Director Of Physician Practices Relationship Specialty Start Date [place] [address] [place] [address] PCP - General Family Practice 06/29/19 Christian Mars MD [place] Family Practice 05/26/11 [place] [address] [place] [address] Assigned PCP 07/08/19 Nan Nguyen, BERENICE 09/09/21 08/10/22 documented as of this encounter
--- OUTSIDE RECORDS SUMMARY | 2024-01-16 11:50 | XMS_ITS | Encounter Summary ---
Author Organization [facility] Address [address] [place] [address]. [place] [address] Care Team Providers Care Outpatient Phlebotomist Name Role Phone Christian Mars MD Unavailable Unavailable Coming Ana Luisa Galeana MD Primary Care Provid er Coming Ana Luisa Galeana MD Unavailable [phone]- [phone] Reason for Visit * Reason Comments Medication Refill Encounter Details Date Type Department Care Team (Late st Contact Info) Description 11/12/2023 Refill [facility] [address] [place] [phone] Coming [place] [id number] [place] [phone] Medication Refill Social History Tobacco Use Types [...] week 10/12/2021 How often do you attend [facility] or latter-day services? Never 10/12/2021 Do you belong to any clubs o r organizations such as advent groups, unions, fraternal or athletic groups, or [...] Answer Date Recorded PHQ-2 Score 2 11/09/2023 [facility] Occupat ional Health - Occupational Stress [...] in an abandoned building, in an overnight half-way, or couch-surfing.) Yes 06/09/2023 Are you worried [...] encounter Miscellaneous Notes * Telephone Encounter - Johanne Sprague - 11/16/2023 10:55 AM CDT Called patient, left a message to call clinic. Johanne Sprague. Hydraulic Mechanic * Telephone Encounter - Ana Luisa Briones MD - 11/15/2023 10:47 PM CDT Needs visit for refills, please call to schedule. documented in this encounter Plan of Treatment Not on file documented as of this encounter Visit Diagnoses Diagnosis Type 2 diabetes mellitus with hyperglycemia, without long-term current use of insulin (H) Uncontrolled type 2 diabetes mellitus with hyperglycemia (H) documented in this encounter Additional Health Concerns Assessment Noted Time PHQ-9 Depression Total Score: 9 09/26/19 24 11:29 AM CDT documented as of this encounter Care Teams Outpatient Phlebotomist Relationship Specialty Start [place] [address] [place] [address] PCP - General Family Practice 06/29/19 Christian Mars MD Family Practice 05/26/11 [place] [address] [place] [address] Assigned PCP 07/08/19 documented as of this encounter
--- OUTSIDE RECORDS SUMMARY | 2024-01-16 11:50 | XMS_ITS | Encounter Summary ---
Author Organization [facility] Address [address] [place] [address]. [place] [address] Care Team Providers Care Event Designer Name Role Phone Christian Mars MD Unavailable Unavailable Coming Ana Luisa Galaena MD Primary Care Provid er Coming Ana Luisa Galeana MD Unavailable [phone]- [phone] Encounter Details Date Type Department Care Team (Late st Contact Info) Description 06/06/2023 [facility] Medical Advice [facility] [id number] [place] [phone] Coming [place] Luisa G[place]ana [place] [id number] [place] [address] Social History Tobacco Use Types Packs/Day Years [...] week 10/12/2021 How often do you attend [facility] or jew services? Never 10/12/2021 Do you belong to any clubs o r organizations such as synagogue groups, unions, fraternal or athletic groups, or [...] PHQ-2 Answer Date Recorded PHQ-2 Score 2 12/08/2022 [facility] of Occupat ional Health - Occupational Stress [...] getting things that you need? No 06/09/2023 Sex and Gender Information Value Date Recorded [...] Noted Time PHQ-9 Depression Total Score: 6 12/09/19 23 10:26 AM CDT documented as of this encounter Care Teams Event Designer Relationship Specialty Start Date [place] [address] [place] [address] PCP - General Family Practice 06/29/19 Christian Mars MD Family Practice 05/26/11 [place] [address] [place] [address] Assigned PCP 07/08/19 documented as of this encounter
--- OUTSIDE RECORDS SUMMARY | 2024-01-16 11:50 | XMS_ITS | Referral Summary ---
Author Organization [place] Address [address] [place] [address] Care Team Providers Care Marketing Team Lead Name Role Phone Christian Mars MD Unavailable Unavailable Coming Ana Luisa Galeana MD Primary Care Provid er Coming Ana Luisa Galeana MD Unavailable [phone]- [phone] Encounters Date Type Department Care Team Description 01/02/[address] [address] Coming Ana Luisa Galeana MD Medication Refill 11/12/[address] [phone] Coming Ana Luisa Galeana MD Medication Refill 11/09/2023 [facility] Advice [address] [phone] Johanne Sprague from Last 3 Months Allergies Active Allergy Reactions Criticality Noted Date [...] updated by automated process. Provider to review Immunizations Name Administration Dates Next Due COVID-19 Monovalent 12+ (Pfizer 2021) 10/13/2021 COVID-19 Vaccine (Rufus) 10/29/2020 Hepatitis B, Adult 10/13/2021 Pneumococcal 23 valent 09/22/2016 TD,PF 7+ (Tenivac) 06/20/2002 TDAP Vaccine (Boostrix) 12/28/2016 Social History Tobacco Use Types Packs/Day Years [...] week 10/12/2021 How often do you attend [facility] or yazidism services? Never 10/12/2021 Do you belong to any clubs o r organizations such as jehovah's witness groups, unions, fraternal or athletic groups, or [...] Answer Date Recorded PHQ-2 Score 2 11/09/2023 [facility] of Occupat ional Health - Occupational Stress [...] in an abandoned building, in an overnight custodial, or couch-surfing.) Yes 06/09/2023 Are you worried [...] Comments Blood Pressure 161/94 06/15/2023 10:31 AM AVIATION MANAGER Pulse 61 06/15/2023 10:26 AM AVIATION MANAGER Temperature 36.7 ??C (98 ??F) 06/15/2023 10:26 AM AVIATION MANAGER Respiratory Rate 17 06/15/2023 10:26 AM AVIATION MANAGER Oxygen Saturation 98% 06/15/2023 10:26 AM AVIATION MANAGER Inhaled Oxygen Concentration - - Weight 86.2 kg (190 lb) 06/15/2023 10:26 AM AVIATION MANAGER Height 167.6 cm (5' 6) 06/15/2023 10:26 AM AVIATION MANAGER Body Mass Index 30.67 06/15/2023 10:26 AM AVIATION MANAGER Plan of Treatment Not on file Procedures Procedure Name Priority Date/Time Associated Diagnosis Comments LIPID REFLEX TO DIRECT LDL PANEL Add-On 06/15/2023 10:40 AM AVIATION MANAGER Hyperlipidemia LDL goal <100 BASIC METABOLIC PANEL Add-On 06/15/2023 10:40 AM AVIATION MANAGER Fatigue, unspecified type HEMOGLOBIN A1C Routine 06/15/2023 10:40 AM AVIATION MANAGER Type 2 diabetes mellitus with hyperglycemia, without long-term current use of insulin (H) COLOGUARD(EXACT SCIENCES) Routine 12/27/2022 10:40 AM CDT Colon cancer screening ALBUMIN RANDOM URINE QUANTITATIVE Routine 12/08/2022 11:13 AM CDT Type 2 diabetes mellitus with hyperglycemia, without long-term current use of insulin (H) MA SCREENING BILATERAL W/ NAVEED Routine 03/12/2022 10:56 AM CDT Visit for screening mammogram EYE EXAM - HIM SCAN Routine 10/03/2021 HIV 1 AND 2 ANTIBODY (QUEST) Routine 05/20/2008 8:07 AM AVIATION MANAGER HEPATITIS C ANTIBODY Routine 05/20/2008 8:07 AM AVIATION MANAGER from Last 3 Months or Most Recently Relevant to Health Maintenance Results * (ABNORMAL) Lipid panel reflex to direct LDL Fasting (06/15/2023 10:40 AM AVIATION MANAGER) Pathologist [facility] Cholesterol 139 <200 mg/dL 06/15/2023 6:13 PM AVIATION MANAGER [facility] Triglycerides 1,116(H) <150 mg/dL 06/15/2023 6:13 PM AVIATION MANAGER [facility] Direct Measure HDL 20(L) >=50 mg/dL 06/15/2023 6:13 PM AVIATION MANAGER [facility] LDL Cholesterol Calculated 06/15/2023 6:13 PM AVIATION MANAGER [facility] Comment:Cannot estimate LDL when triglyceride exceeds 400 mg/dL Non HDL Cholesterol 119 <130 mg/dL 06/15/2023 6:13 PM AVIATION MANAGER [facility] Blood BLOOD SPECIMEN / Unknown Venipuncture / Unknown 06/15/2023 10:40 AM AVIATION MANAGER 06/15/2023 10:40 AM AVIATION MANAGER Narrative [facility] - 06/15/2023 6:13 PM AVIATION MANAGER Cholesterol Desirable: ??<200 mg/dL Triglycerides Normal: ??Less [...] ??Greater than or equal to 220 mg/dL Ana Luisa Galeana MD LAB - BLOOD ORDERABLES [facility] [address] [facility], [address] [place] [address], [place] [phone] * (ABNORMAL) Hemoglobin A1c (06/15/2023 10:40 AM AVIATION MANAGER) Hemoglobin A1C 9.6(H) 0.0 - 5.6 % 06/15/2023 11:17 AM AVIATION MANAGER [facility] Comment: Normal <5.7% Prediabetes 5.7-6.4% ?? Diabetes 6.5% or higher Note: Adopted from ADA consensus guidelines. Blood BLOOD SPECIMEN / Unknown Venipuncture / Unknown 06/15/2023 10:40 AM AVIATION MANAGER 06/15/2023 10:40 AM AVIATION MANAGER Narrative [facility] - 06/15/2023 11:17 AM AVIATION MANAGER Results confirmed by repeat test. Ana Luisa Galeana MD LAB - BLOOD ORDERABLES [facility] [address] [place] [address] (no room number, 1st floor of clinic) [place] [address], [place] [phone] * (ABNORMAL) Basic metabolic panel (Ca, Cl, CO2, Creat, Gluc, K, Na, BUN) (06/15/2023 10:40 AM AVIATION MANAGER) Sodium 135 135 - 145 mmol/L 06/15/2023 5:59 PM AVIATION MANAGER [facility] Comment:Reference intervals for this test were updated on 03/15/2023 to more accurately reflect our healthy population. There may be differences in the flagging of prior results with similar values performed with this method. Interpretation of those prior results can be made in the context of the updated reference intervals. Potassium 4.5 3.4 - 5.3 mmol/L 06/15/2023 5:59 PM AVIATION MANAGER [facility] Chloride 103 98 - 107 mmol/L 06/15/2023 5:59 PM AVIATION MANAGER [facility] Carbon Dioxide (CO2) 19(L) 22 - 29 mmol/L 06/15/2023 5:59 PM AVIATION MANAGER [facility] Anion Gap 13 7 - 15 mmol/L 06/15/2023 5:59 PM AVIATION MANAGER [facility] Urea Nitrogen 10.4 6.0 - 20.0 mg/dL 06/15/2023 5:59 PM AVIATION MANAGER [facility] Creatinine 0.64 0.51 - 0.95 mg/dL 06/15/2023 5:59 PM AVIATION MANAGER [facility] GFR Estimate >90 >60 mL/min/1. 73m2 06/15/2023 5:59 PM AVIATION MANAGER [facility] Calcium 9.4 8.6 - 10.0 mg/dL 06/15/2023 5:59 PM AVIATION MANAGER [facility] Glucose 301(H) 70 - 99 mg/dL 06/15/2023 5:59 PM AVIATION MANAGER [facility] Blood BLOOD SPECIMEN / Unknown Venipuncture / Unknown 06/15/2023 10:40 AM AVIATION MANAGER 06/15/2023 10:40 AM AVIATION MANAGER September Monika Galeana MD LAB - BLOOD ORDERABLES [facility] [address] [facility], [address] [place] [address], [facility] [phone] * COLOGUARD(SPARQ SCIENCES) (12/27/2022 10:40 AM CDT) COLOGUARD-ABSTRACT Negative Negative 2022 10:58 AM CDT [employer] [facility] (CLIA #:[id number]) Comment: NEGATIVE TEST RESULT. A negative Cologuard [...] screened with both Cologuard and colonoscopy. (Layla Feng. et al, N Engl J Med 2014;370(14):1286- 1297) The normal value (reference range) for this assay is negative. COLOGUARD RE-SCREENING RECOMMENDATION: Periodic colorectal cancer screening is an important part of preventive healthcare for asymptomatic individuals at average risk for colorectal cancer. ??Following a negative Cologuard result, the Australian Cancer Society and U.S. Multi-Society Task Force screening guidelines recommend a Cologuard re-screening interval of 3 years. References: [place] Cancer Society Guideline for Colorectal Cancer Screening: https://www.cancer.org/cancer/bynac-ipygsf-tvmxvy/zumjhhnlw-xeqnlbeje-ofcxacf/ac s-rec ommendations.html.; Matt HAMMOND, Laura ANAYA, Bienvenido GONZALEZ, Colorectal Cancer Screening: Recommendations for Physicians and Patients from the U.S. Multi-Society Task Force on Colorectal Cancer Screening , Am J Gastroenterology 2017; 112:1092-7389. TEST DESCRIPTION: Composite algorithmic analysis of stool [...] screened with both Cologuard and colonoscopy. (Layla Fischer et al, N Engl J Med 2014;370(14):7939-0816.) Cologuard may produce a false negative or false positive result (no colorectal cancer or precancerous polyp present at colonoscopy follow up). A negative Cologuard test result does not guarantee the absence of CRC or advanced adenoma (pre-cancer). The current Cologuard screening interval is every 3 years. (Australian Cancer Society and U.S. Multi-Society Task Force). Cologuard performance data in a 10,000 patient pivotal study using colonoscopy as the reference method can be accessed at the following location: www.[facility]/results. Additional description of the Cologuard test process, warnings and precautions can be found at www.[employer].com. Stool specimen (specimen) 12/27/2022 10:40 AM CDT 12/28/2022 10:28 PM CDT September Monika Galeana MD LABORATORY [employer] [facility] [address] [place] [address], [facility] [phone] [employer] (CLIA #:[id number]) [address] [place] [address] * Albumin Random Urine Quantitative with Creat [...] control, and institution of therapy with an pqcrtlgswau-zrazcrivqr-gyhacw (RAFAEL) inhibitor (if the patient can tolerate it). ?? Urine URINE SPECIMEN / Unknown Non-blood Collection / Unknown 12/08/2022 11:13 AM CDT 12/08/2022 12:21 PM CDT September Monika Galeana MD LAB - URINE ORDERABLES [facility] [facility] [address] [facility], [address] [address] [phone] * MA Screen Bilateral w/Naveed (03/12/2022 10:56 [...] - 10/03/2021 Date of last eye exam [facility] approx. 10-03-21 Patient Reported OTHER * HIV 1 and 2 Antibody (05/20/2008 8:07 AM AVIATION MANAGER) HIV 1&2 Antibody Negative NEG MISYS 05/20/2008 8:07 AM AVIATION MANAGER 05/15/2008 7:02 AM AVIATION MANAGER Rio Melvin MD LAB - BLOOD ORDERABL ES MISYS * Hepatitis C antibody (05/20/2008 8:07 AM AVIATION MANAGER) Hepatitis C Antibody Negative NEG MISYS 05/20/2008 8:07 AM AVIATION MANAGER 05/15/2008 7:02 AM AVIATION MANAGER Rio Melvin MD LAB - BLOOD ORDERABL ES MISYS from Last 3 Months or Most Recently Relevant to Health Maintenance Advance Directives For more information, please contact: [phone] * Full Code (Latest Code Status on File) Date Activated Date Inactivated Comments 04/03/2015 9:33 PM 04/07/2015 4:02 PM Care Teams Marketing Team Lead Relationship Specialty Start Date [place] [address] [place] [address] PCP - General Family Practice 06/29/19 Christian Mars MD Family Practice 05/26/11 [place] [address] [place] [address] Assigned PCP 07/08/19
--- OUTSIDE RECORDS SUMMARY | 2024-01-16 11:51 | XMS_ITS | Encounter Summary ---
Author Organization [place] Address [address] [place] [address] Care Team Providers Care Triage Nurse Name Role Phone Christian Mars MD Unavailable Unavailable Coming Ana Luisa Galeana MD Primary Care Provid er Coming Ana Luisa Galeana MD Unavailable [phone]- [phone] Crystal Araujo MD Unavailable [phone] [facility] Nan Nguyen RN Unavailable Unavailable Reason for Visit * Reason Comments Medication Refill Zolpidem. NAYELI with l abs 11/21/19. Not [facility] pt. Encounter Details Date Type Department Care Team (Late st Contact Info) Description 01/07/2020 Refill [facility] [address] [place] [phone] Mu Hickey MD [address] [place] [phone] Medication Refill (Zolpidem. NAYELI with labs 11/21/19. Not [facility] pt. ) Social History Tobacco Use Types Packs/Day Years Used Date Smoking Tobacco: Former Cigarettes 1 20.3 0 11/18/1985 - 03/20/2006 Smokeless Tobacco: Never Comments:1/2-3/4 pack per da y Alcohol Use Standard Drinks/Week Comments Yes 0 (1 standard drink = 0.6 oz pur e alcohol) maybe 1 or 2 a month if that PHQ-2 Answer Date Recorded PHQ-2 Score 2 07/26/2019 Sex and Gender Information Value Date Recorded Sex Assigned at Female 09/29/2018 12:59 AM CDT Gender Identity Female 09/29/2018 12:59 AM CDT Sexual Orientation Straight 09/29/2018 12 :59 AM CDT documented as of this encounter Miscellaneous Notes * Telephone Encounter - Yulissa Washington - 01/07/2020 2:38 PM CDT [place] [facility] [place] * Telephone Encounter - Cyndee Metzger CMA - 01/07/2020 2:14 PM CDT Zolpidem. NAYELI with labs 11/21/19. Not [facility] pt. documented in this encounter Plan of Treatment Not on file documented as of this encounter Visit Diagnoses Not on filedocumented in this encounter Additional Health Concerns Assessment Noted Time PHQ-9 Depression Total Score: 8 12/29/19 7:11 AM CDT documented as of this encounter Care Teams Triage Nurse Relationship Specialty Start Date [place] [address] [place] [address] PCP - General Family Practice 06/29/19 Christian Mars MD [place] Family Practice 05/26/11 [place] [address] [place] [address] Assigned PCP 07/08/19 Crystal Araujo MD [address] [place] [address] Assigned OBGYN Provider 04/11/2006/14 Nan Nguyen, BERENICE 09/09/21 08/10/22 documented as of this encounter
--- OUTSIDE RECORDS SUMMARY | 2024-01-16 11:51 | XMS_ITS | Encounter Summary ---
Author Organization [facility] Address [address] [place] [address] Care Team Providers Care High Density Talc Coater Operator Name Role Phone Christian Mars MD Unavailable Unavailable Christian Mars MD Primary Care Provider Unava ilable System, Provider Not In Primary Care Provider Un available Mu Hickey MD Primary Care Provider + [phone] Mu Hickey MD Unavailable +[phone] Coming Ana Luisa Galeana MD Primary Care Provid er Coming Ana Luisa Galeana MD Unavailable + [phone] Crystal Araujo MD Unavailable +[phone] Nan Maier RN Unavailable Unavailable Reason for Visit * Reason Comments Medication Refill metformin last OV - 05/28/16 last labs 02/11/16 Encounter Details Date Type Department Care Team (Late st Contact Info) Description 07/07/2016 Refill [facility] [address] [place] [address] Darien Andrade MD [address] [place] [address] Medication Refill (metformin last OV - 05/28/16 last labs 02/11/16) Social History Tobacco Use Types Packs/Day Years Used Date Smoking Tobacco: Former Cigarettes 0.5 10 0 08/02/1996 - 08/02/2006 Smokeless Tobacco: Never Comments:1/2-3/4 pack per da y Alcohol Use Standard Drinks/Week Comments Yes 0 (1 standard drink = 0.6 oz pur e alcohol) socially Sex and Gender Information Value Date Recorded Sex Assigned at Female 09/29/2018 12:59 AM CDT Gender Identity Female 09/29/2018 12:59 AM CDT Sexual Orientation Straight 09/29/2018 12 :59 AM CDT documented as of this encounter Miscellaneous Notes * Telephone Encounter - Bernice Dawn - 07/08/2016 9:16 AM CST metformin last OV - 05/28/16 last labs 02/11/16 Bernice Dawn MA July 08, 2016 9:16 AM A1C 5.5 02/11/2016 A1C 5.9 06/11/2015 A1C 8.8 04/04/2015 A1C 7.0 02/03/2015 [address] 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 SUPERVISOR documented in this encounter Plan of Treatment Not on file documented as of this encounter Visit Diagnoses Diagnosis Encounter for medication refill- Primary Issue of repeat prescriptions documented in this encounter Care Teams High Density Talc Coater Operator Relationship Specialty Start Date End Date Christian Mars MD PCP - General Family Practice 07/30/11 10/25/17 System, Provider Not In PCP - General Clinic 10/26/17 05/24/18 Mu Hickey MD [address] [phone] PCP - General Family Practice 05/25/18 06/28/19 [place] [address] [place] [address] PCP - General Family Practice 06/29/19 Christian Mars MD [facility] Practice 05/26/11 Mu Hickey MD [address] [phone] Assigned PCP 06/11/18 07/07/19 [place] [address] [place] [address] Assigned PCP 07/08/19 Crystal Araujo MD [address] [place] [address] Assigned OBGYN Provider 04/11/2006/14 Nan Nguyen, BERENICE 09/09/21 08/10/22 documented as of this encounter
--- OUTSIDE RECORDS SUMMARY | 2024-01-16 11:51 | XMS_ITS | Encounter Summary ---
Author Organization [facility] Address [address] [place] [address] Care Team Providers Care Peoplesoft Taleo Manager Name Role Phone Christian Mars MD Unavailable Unavailable System, Provider Not In Primary Care Provider Un available Mu Hickey MD Primary Care Provider + [phone] Mu Hickey MD Unavailable +[phone] Coming Ana Luisa aGleana MD Primary Care Provid er Coming Ana Luisa Galeana MD Unavailable + [phone] Crystal Araujo MD Unavailable +[phone] Nan Maier RN Unavailable Unavailable Reason for Visit * Reason Comments Medication Refill 2 med refills--last visit 08-26-17 Encounter Details Date Type Department Care Team (Late st Contact Info) Description 11/21/[address] [address] Christian Mars MD INACTIVE SINCE 05/19/2019 Medication Refill (2 med refills--last visit 08-26-17) Social History Tobacco Use Types Packs/Day Years [...] as of this encounter Visit Diagnoses Diagnosis Diabetes mellitus, type 2 (H) Type II or unspecified type diabetes mellitus without mention of complication, not stated as uncontrolled Encounter for medication refill Issue of repeat prescriptions documented in this encounter Care Teams Peoplesoft Taleo Manager Relationship Specialty Start Date End Date System, Provider Not In PCP - General Clinic 10/26/17 05/24/18 Mu Hickey MD [address] [place] [phone] PCP - [facility] Family Practice 05/25/18 06/28/19 [place] [address] [place] [address] PCP - [facility] Practice 06/29/19 Christian Mars MD Replaced by [facility] 05/26/11 Mu Hickey MD [address] [place] [phone] Assigned PCP 06/11/18 07/07/19 [place] [address] [place] [address] Assigned PCP 07/08/19 Crystal Araujo MD [address] [place] [id number] Assigned OBGYN Provider 04/11/2006/14 Nan Nguyen RN 09/09/21 08/10/22 documented as of this encounter
--- OUTSIDE RECORDS SUMMARY | 2024-01-16 11:51 | XMS_ITS | Encounter Summary ---
Author Organization [facility] Address [address] [place] [address] Care Team Providers Care Quencher Operator Name Role Phone Christian Mars MD Unavailable Unavailable Crhistian Mars MD Primary Care Provider Unava ilable System, Provider Not In Primary Care Provider Un available Mu Hickey MD Primary Care Provider + [phone] Mu Hickey MD Unavailable +[phone] Coming Ana Luisa Galeana MD Primary Care Provid er Coming Ana Luisa Galeana MD Unavailable + [phone] Crystal Araujo MD Unavailable +[phone] Nan Maier RN Unavailable Unavailable Encounter Details Date Type Department Care Team (Late st Contact Info) Description 09/08/2017 MyC Medical Advice [facility] [address] [place] [address] Christian Mars MD INACTIVE SINCE 05/19/2019 Social History Tobacco Use Types Packs/Day Years [...] Diagnoses Not on filedocumented in this encounter Care Teams Quencher Operator Relationship Specialty Start Date End Date Christian Mars MD PCP - General Family Practice 07/30/11 10/25/17 System, Provider Not In PCP - General Clinic 10/26/17 05/24/18 Mu Hickey MD [address] [phone] PCP - General Family Practice 05/25/18 06/28/19 [place] [address] [place] [address] PCP - [facility] Practice 06/29/19 Christian Mars MD [facility] 05/26/11 Mu Hickey MD [address] [phone] Assigned PCP 06/11/18 07/07/19 [place] [address] [place] [address] Assigned PCP 07/08/19 Crystal Araujo MD [address] [place] [address] Assigned OBGYN Provider 04/11/2006/14 Nan Nguyen, BERENICE 09/09/21 08/10/22 documented as of this encounter
--- OUTSIDE RECORDS SUMMARY | 2024-01-16 11:51 | XMS_ITS | Encounter Summary ---
Author Organization [facility] Address [address] [place] [address] Care Team Providers Care Normalizer Name Role Phone Christian Mars MD Unavailable Unavailable Christian Mars MD Primary Care Provider Unava ilable System, Provider Not In Primary Care Provider Un available Mu Hickey MD Primary Care Provider + [phone] Mu Hickey MD Unavailable +[phone] Coming Ana Luisa Galeana MD Primary Care Provid er Coming Ana Luisa Galeana MD Unavailable + [phone] Crystal Araujo MD Unavailable +[phone] Nan Maier RN Unavailable Unavailable Encounter Details Date Type Department Care Team (Late st Contact Info) Description 09/09/2017 MyC Medical Advice [facility] [address] [place] [phone] Christian Mars MD INACTIVE SINCE 05/19/2019 [...] on filedocumented in this encounter Care Teams Normalizer Relationship Specialty Start Date End Date Christian aMrs MD PCP - General Family Practice 07/30/11 10/25/17 System, Provider Not In PCP - General Clinic 10/26/17 05/24/18 Mu Hickey MD [address] [address] PCP - General Family Practice 05/25/18 06/28/19 [place] [address] [place] [address] PCP - [facility] Practice 06/29/19 Christian Mars MD [facility] 05/26/11 Mu Hickey MD [address] [phone] Assigned PCP 06/11/18 07/07/19 [place] [address] [place] [address] Assigned PCP 07/08/19 Crystal Araujo MD [address] [place] [address] Assigned OBGYN Provider 04/11/2006/14 Nan Nguyen, BERENICE 09/09/21 08/10/22 documented as of this encounter
--- OUTSIDE RECORDS SUMMARY | 2024-01-16 11:51 | XMS_ITS | Encounter Summary ---
Author Organization [facility] Address [address] [place] [address] Care Team Providers Care Adjunct Psychology Faculty Member Name Role Phone Christian Mars MD Unavailable Unavailable Coming Ana Luisa Galeana MD Primary Care Provid er Coming Ana Luisa Galeana MD Unavailable +[phone] Nan Nguyen RN Unavailable Unavailable Reason for Visit * Reason Onset Date Comments Refill Request 08/27/2020 LORazepam (ATIVA N) 1 MG tablet Encounter Details Date Type Department Care Team (Late st Contact Info) Description 08/27/[address] [address] [place] Luisa [place]iones [place] [id number] [place] [id number] Refill Request (LORazepam (ATIVAN) 1 MG tablet) Social History Tobacco Use Types Packs/Day Years [...] have Coronavirus / COVID-19? No / Unsure 08/18/2020 1:10 PM TIMBER POISONER documented as of this encounter Miscellaneous Notes * Telephone Encounter - Tesha Steinberg RN - 08/27/2020 12:31 PM TIMBER POISONER Routing refill request to provider for review/approval because: Drug not on the [facility] refill protocol Tesha Steinberg RN [facility] -- Triage Nurse ER POISONER documented in this encounter Plan of Treatment Not on file documented as of this encounter Visit Diagnoses Diagnosis Anxiety attack Panic disorder without agoraphobia documented in this encounter Additional Health Concerns Assessment Noted Time PHQ-9 Depression Total Score: 5 08/19/19 21 1:08 PM TIMBER POISONER documented as of this encounter Care Teams Adjunct Psychology Faculty Member Relationship Specialty Start Date [place] [address] [place] [address] PCP - General Family Practice 06/29/19 Christian Mars MD [facility] 05/26/11 [place] [address] [place] [address] Assigned PCP 07/08/19 Nan Nguyen, BERENICE 09/09/21 08/10/22 documented as of this encounter
--- OUTSIDE RECORDS SUMMARY | 2024-01-16 11:51 | XMS_ITS | Encounter Summary ---
Author Organization [facility] Address [address] [place] [address] Care Team Providers Care Airplane Inspector Name Role Phone Christian Mars MD Unavailable Unavailable Mu Hickey MD Primary Care Provider + [phone] Mu Hickey MD Unavailable +[phone] Coming Ana Luisa Galeana MD Primary Care Provid er Coming Ana Luisa Galeana MD Unavailable + [phone] Crystal Araujo MD Unavailable +[phone] Nan Nguyen RN Unavailable Unavailable Encounter Details Date Type Department Care Team (Latest Contact Info) Description 06/28/2019 Historic Results Social History Tobacco Use Types Packs/Day Years Used Date Smoking Tobacco: Former Cigarettes 1 20.3 0 11/18/1985 - 03/20/2006 Smokeless Tobacco: Never Comments:1/2-3/4 pack per da y Alcohol Use Standard Drinks/Week Comments Yes 0 (1 standard drink = 0.6 oz pur e alcohol) maybe 1 or 2 a month if that PHQ-2 Answer Date Recorded PHQ-2 Score 5 06/28/2019 Sex and Gender Information Value Date Recorded [...] Assessment Noted Time PHQ-9 Depression Total Score: 19 020 7:02 AM CHIEF DESIGN ENGINEER documented as of this encounter Care Teams Airplane Inspector Relationship Specialty Start Date End Date Mu Hickey MD [address] [place] [phone] PCP - General Family Practice 05/25/18 06/28/19 [place] [address] [place] [address] PCP - General Family Practice 06/29/19 Christian Mars MD [facility] Practice 05/26/11 Mu Hickey MD [address] [place] [phone] Assigned PCP 06/11/18 07/07/19 [place] [address] [place] [address] Assigned PCP 07/08/19 Crystal Araujo MD [address] [place] [address] Assigned OBGYN Provider 04/11/2006/14 Nan Nguyen, RN 09/09/21 08/10/22 documented as of this encounter
--- OUTSIDE RECORDS SUMMARY | 2024-01-16 11:51 | XMS_ITS | Encounter Summary ---
Author Organization [facility] Address [address] [place] [address] Care Team Providers Care Foreign Language Instructor Name Role Phone Christian Mars MD Unavailable Unavailable Christian Mars MD Primary Care Provider Unava ilable System, Provider Not In Primary Care Provider Un available Mu Hickey MD Primary Care Provider + [phone] Mu Hickey MD Unavailable +[phone] Coming Ana Luisa Galeana MD Primary Care Provid er Coming Ana Luisa Galeana MD Unavailable + [phone] Crystal Araujo MD Unavailable +[phone] Nan Maier RN Unavailable Unavailable Reason for Visit * Reason Comments Medication Refill Encounter Details Date Type Department Care Team (Late st Contact Info) Description 03/30/2016 Refill [facility] [address] [address] Christian Mars MD INACTIVE SINCE 05/19/2019 Medication Refill Social History Tobacco Use Types [...] prescriptions documented in this encounter Care Teams Foreign Language Instructor Relationship Specialty Start Date End Date Christian Mars MD PCP - General [facility] Practice 07/30/11 10/25/17 System, Provider Not In PCP - General Clinic 10/26/17 05/24/18 Mu Hickey MD [address] [phone] PCP - [facility] Practice 05/25/18 06/28/19 [place] [address] [place] [address] PCP - [facility] Practice 06/29/19 Christian Mars MD [facility] 05/26/11 Mu Hickey MD [address] [place] [phone] Assigned PCP 06/11/18 07/07/19 [place] [address] [place] [address] Assigned PCP 07/08/19 Crystal Araujo MD [address] [place] [address] Assigned OBGYN Provider 04/11/2006/14 Nan Nguyen, BERENICE 09/09/21 08/10/22 documented as of this encounter
--- OUTSIDE RECORDS SUMMARY | 2024-01-16 11:51 | XMS_ITS | Encounter Summary ---
Author Organization [facility] Address [address] [place] [address] Care Team Providers Care Substation Engineer Name Role Phone Christian Mars MD Unavailable Unavailable Coming Ana Luisa Galeana MD Primary Care Provid er Coming Ana Luisa Galeana MD Unavailable +[phone] Crystal Araujo MD Unavailable [phone] [facility] Nan Nguyen RN Unavailable Unavailable Reason for Visit * Reason Onset Date Comments Refill Request 05/14/2020 propranolol (IND ERAL) 20 MG tablet Encounter Details Date Type Department Care Team (Late st Contact Info) Description 05/14/[address] [phone] Coming Ana Luisa Galeana MD [address] [place] [phone] Refill Request (propranolol (INDERAL) 20 MG tablet) Social History Tobacco Use Types [...] encounter Miscellaneous Notes * Telephone Encounter - Christian Boyce - 05/21/2020 11:29 AM CST Patient has a video visit on 06/02/[address] Fabian Galeana. N'S ACTIVITIES ADVISER * Telephone Encounter - Christian Boyce - 05/19/2020 9:27 AM CST Left message for patient to call back. N'S ACTIVITIES ADVISER * Telephone Encounter - Ana Luisa Briones MD - 05/17/2020 8:08 PM WOMEN'S ACTIVITIES ADVISER Needs appointment for additional refills N'S ACTIVITIES ADVISER * Telephone Encounter - Tesha Steinberg RN - 05/16/2020 7:50 AM WOMEN'S ACTIVITIES ADVISER Routing refill request to provider for review/approval because: Elevated BP Tesha Steinberg RN [facility] -- Triage Nurse N'S ACTIVITIES ADVISER documented in this encounter Plan of Treatment Not on file documented as of this encounter Visit Diagnoses Diagnosis Encounter for medication refill Issue of repeat prescriptions documented in this encounter Additional Health Concerns Assessment Noted Time PHQ-9 Depression Total Score: 8 12/29/19 20 7:11 AM CDT documented as of this encounter Care Teams Substation Engineer Relationship Specialty Start [place] [address] [place] [address] PCP - General Family Practice 06/29/19 Christian Mars MD [facility] 05/26/11 [place] [address] [place] [address] Assigned PCP 07/08/19 Crystal Araujo MD [address] [place] [address] Assigned OBGYN Provider 04/11/2006/14 Nan Nguyen, BERENICE 09/09/21 08/10/22 documented as of this encounter
--- OUTSIDE RECORDS SUMMARY | 2024-01-16 11:51 | XMS_ITS | Encounter Summary ---
Author Organization [facility] Address [address] [place] [address] Care Team Providers Care Underwriting Clerks Supervisor Name Role Phone Christian Mars MD Unavailable Unavailable Christian Mars MD Primary Care Provider Unava ilable System, Provider Not In Primary Care Provider Un available Mu Hickey MD Primary Care Provider + [phone] Mu Hickey MD Unavailable +[phone] Coming Ana Luisa Galeana MD Primary Care Provid er Coming Ana Luisa Galeana MD Unavailable + [phone] Crystal Araujo MD Unavailable +[phone] Nan Maier RN Unavailable Unavailable Reason for Visit * Reason Comments Medication Refill fenofibrate last OV - & labs 06/11/15 Encounter Details Date Type Department Care Team (Late st Contact Info) Description 10/24/2015 Refill [facility] [address] [address] Christian Mars MD INACTIVE SINCE 05/19/2019 Medication Refill (fenofibrate last OV - & labs 06/11/15) Social History Tobacco Use Types Packs/Day Years [...] * Telephone Encounter - Bernice Dawn - 10/24/2015 9:44 AM CDT fenofibrate last OV - & labs 06/11/15 Bernice Dawn MA October 24, 2015 9:44 AM documented in this encounter Plan of Treatment Not on file documented as of this encounter Visit Diagnoses Diagnosis Encounter for medication refill- Primary Issue of repeat prescriptions documented in this encounter Care Teams Underwriting Clerks Supervisor Relationship Specialty Start Date End Date Christian Mars MD PCP - General Family Practice 07/30/11 10/25/17 System, Provider Not In PCP - General Clinic 10/26/17 05/24/18 Mu Hickey MD [address] [phone] PCP - General Family Practice 05/25/18 06/28/19 [place] [address] [place] [address] PCP - General Family Practice 06/29/[address] [facility] 05/26/11 Mu Hickey MD [address] [phone] Assigned PCP 06/11/18 07/07/19 [place] [address] [place] [address] Assigned PCP 07/08/19 Crystal Araujo MD [address] [place] [address] Assigned OBGYN Provider 04/11/2006/14 Nan Nguyen RN 09/09/21 08/10/22 documented as of this encounter
--- OUTSIDE RECORDS SUMMARY | 2024-01-16 11:51 | XMS_ITS | Encounter Summary ---
Author Organization [facility] Address [address] [place] [address]. [place] [address] Care Team Providers Care Supervisor Net Making Name Role Phone Christian Mars MD Unavailable Unavailable Mu Hickey MD Primary Care Provider + [phone] Mu Hickey MD Unavailable [phone] Coming Ana Luisa Galeana MD Primary Care Provid er Coming Ana Luisa Galeana MD Unavailable + [phone] Crystal Araujo MD Unavailable +[phone] [facility] Nan Nguyen RN Unavailable Unavailable Encounter Details Date Type Department Care Team (Late st Contact Info) Description 06/18/2019 MyC Medical Advice [facility] [address] [place] [address] Mu Hickey MD [address] [place] [phone] Social History Tobacco Use Types Packs/Day Years [...] Assessment Noted Time PHQ-9 Depression Total Score: 12 018 3:15 PM FAMILY NURSE documented as of this encounter Care Teams Supervisor Net Making Relationship Specialty Start Date End Date Mu Hickey MD [address] [place] [phone] PCP - General Family Practice 05/25/18 06/28/19 [place] [address] [place] [address] PCP - General Family Practice 06/29/19 Christian Mars MD [facility] Practice 05/26/11 Mu Hickey MD [address] [place] [phone] Assigned PCP 06/11/18 07/07/19 [place] [address] [place] [address] Assigned PCP 07/08/19 Crystal Araujo MD [address] [place] [address] Assigned OBGYN Provider 04/11/2006/14 Nan Nguyen, BERENICE 09/09/21 08/10/22 documented as of this encounter
--- OUTSIDE RECORDS SUMMARY | 2024-01-16 11:51 | XMS_ITS | Encounter Summary ---
Author Organization [facility] Address [address] [place] [address] Care Team Providers Care Clarifier Operator Helper Name Role Phone Christian Mars MD Unavailable Unavailable Coming Ana Luisa Galeana MD Primary Care Provid er Coming Ana Luisa Galeana MD Unavailable [phone] Nan Nguyen RN Unavailable Unavailable Reason for Visit * Reason Comments Medication Refill Encounter Details Date Type Department Care Team (Late st Contact Info) Description 08/07/[address] [address] Ryan Galvan MD Medication Refill [...] PHQ-2 Answer Date Recorded PHQ-2 Score 2 07/21/2020 Sex and Gender Information Value Date Recorded Sex Assigned at Female 09/29/2018 12:59 AM CDT Gender Identity Female 09/29/2018 12:59 AM CDT Sexual Orientation Straight 09/29/2018 12 :59 AM CDT documented as of this encounter Miscellaneous Notes * Telephone Encounter - Stephanie Lanza RN - 08/08/2020 11:10 AM CST Routing refill request to provider for review/approval because: Fails protocol for elevated BP: 09/05/19 (!) 120/92 Also, it states the last refill was on 07/01/20 for 90 day supply so pt should not need refill yet. Pt does have appt scheduled in 2 weeks: 08/18/20. Please address refill NING DEVELOPER documented in this encounter Plan of Treatment Not on file documented as of this encounter Visit Diagnoses Diagnosis Encounter for medication refill Issue of repeat prescriptions Benign essential hypertension Essential hypertension, benign documented in this encounter Additional Health Concerns Assessment Noted Time PHQ-9 Depression Total Score: 4 07/22/19 21 7:06 AM LEARNING DEVELOPER documented as of this encounter Care Teams Clarifier Operator Helper Relationship Specialty Start Date [place] [address] [place] [address] PCP - General Family Practice 06/29/19 Christian Mars MD Family Practice 05/26/11 [place] [address] [place] [address] Assigned PCP 07/08/19 Nan Nguyen, BERENICE 09/09/21 08/10/22 documented as of this encounter
--- OUTSIDE RECORDS SUMMARY | 2024-01-16 11:51 | XMS_ITS | Encounter Summary ---
Author Organization [facility] Address [address] [place] [address] Care Team Providers Care Freight Weigher Name Role Phone Christian Mars MD Unavailable Unavailable Christian Mars MD Primary Care Provider Unava ilable System, Provider Not In Primary Care Provider Un available Mu Hickey MD Primary Care Provider + [phone] Mu Hickey MD Unavailable +[phone] Coming Ana Luisa Galeana MD Primary Care Provid er Coming Ana Luisa Galeana MD Unavailable + [phone] Crystal Araujo MD Unavailable [phone] Nan Maier RN Unavailable Unavailable Reason for Visit * Reason Comments Medication Refill Encounter Details Date Type Department Care Team (Late st Contact Info) Description 06/15/2016 Refill [facility] [address] [address] Christian Mars MD INACTIVE SINCE [...] prescriptions documented in this encounter Care Teams Freight Weigher Relationship Specialty Start Date End Date Christian Mars MD PCP - General [facility] Practice 07/30/11 10/25/17 System, Provider Not In PCP - General Clinic 10/26/17 05/24/18 Mu Hickey MD [address] [phone] PCP - [facility] Practice 05/25/18 06/28/19 [place] [address] [place] [address] PCP - [facility] Practice 06/29/19 Christian Mars MD [facility] 05/26/11 Mu Hickey MD [address] [place] [phone] Assigned PCP 06/11/18 07/07/19 [place] [address] [place] [address] Assigned PCP 07/08/19 Crystal Araujo MD [address] [place] [address] Assigned OBGYN Provider 04/11/2006/14 Nan Nguyen, BERENICE 09/09/21 08/10/22 documented as of this encounter
--- OUTSIDE RECORDS SUMMARY | 2024-01-16 11:51 | XMS_ITS | Encounter Summary ---
Author Organization [place] Address [address] [place] [address]. [place] [address] Care Team Providers Care Termite Treater Helper Name Role Phone Christian Mars MD Unavailable Unavailable Coming Ana Luisa Galeana MD Primary Care Provid er Coming Ana Luisa Galeana MD Unavailable +[phone] Crystal Araujo MD Unavailable [phone] [facility] Nan Nguyen RN Unavailable Unavailable Reason for Visit * Reason Comments Medication Refill Encounter Details Date Type Department Care Team (Late st Contact Info) Description 11/12/[address] [address] [place] [id number] [place] [id number] Medication Refill Social History Tobacco Use Types [...] encounter Miscellaneous Notes * Telephone Encounter - Yesenia Keller RN - 11/13/2019 2:49 PM CDT Routing refill request to provider for review/approval because: Labs out of range: PHQ PHQ 07/25/2019 08/22/2019 09/17/2019 PHQ-9 Total Score 11 11 7 Q9: Thoughts of better off /self-harm past 2 weeks Not at all Not at all Several days F/U: Thoughts of suicide or self-harm - - No F/U: Safety concerns - - No Yesenia Keller RN, BSN documented in this encounter Plan of Treatment Not on file documented as of this encounter Visit Diagnoses Diagnosis IGNACIO (generalized anxiety disorder) Generalized anxiety disorder Current mild episode of major depressive disorder, unspecified whether recurrent (H24) Menopausal syndrome (hot flashes) Symptomatic menopausal or female climacteric states documented in this encounter Additional Health Concerns Assessment Noted Time PHQ-9 Depression Total Score: 7 09/18/19 20 7:03 AM CDT documented as of this encounter Care Teams Termite Treater Helper Relationship Specialty Start Date [place] [address] [place] [address] PCP - General Family Practice 06/29/19 Christian Mars MD [place] [facility] 05/26/11 [place] [address] [place] [address] Assigned PCP 07/08/19 Crystal Araujo MD [address] [place] [address] Assigned OBGYN Provider 04/11/2006/14 Nan Nguyen, BERENICE 09/09/21 08/10/22 documented as of this encounter
--- OUTSIDE RECORDS SUMMARY | 2024-01-16 11:51 | XMS_ITS | Encounter Summary ---
Author Organization [place] Address [address] [place] [address]. [place] [address] Care Team Providers Care Information Security Engineer Name Role Phone Christian Mars MD Unavailable Unavailable Coming Ana Luisa Galeana MD Primary Care Provid er Coming Ana Luisa Galeana MD Unavailable +- [phone] Crystal Araujo MD Unavailable [phone] [facility] Nan Nguyen RN Unavailable Unavailable Encounter Details Date Type Department Care Team (Late st Contact Info) Description 11/29/2019 [facility] [address] [address] Alysia Benton MA Social History Tobacco Use Types Packs/Day Years [...] have Coronavirus / COVID-19? No / Unsure 11/27/2019 1:52 PM CDT documented as of this encounter Plan of Treatment Not on file documented as of this encounter Visit Diagnoses Not on filedocumented in this encounter Additional Health Concerns Assessment Noted Time PHQ-9 Depression Total Score: 4 11/30/19 20 7:04 AM CDT documented as of this encounter Care Teams Information Security Engineer Relationship Specialty Start Date [place] [address] [place] [address] PCP - General Family Practice 06/29/19 Christian Mars MD [place] Family Practice 05/26/11 [place] [address] [place] [address] Assigned PCP 07/08/19 Crystal Araujo MD [address] [place] [address] Assigned OBGYN Provider 04/11/2006/14 Nan Nguyen, RN 09/09/21 08/10/22 documented as of this encounter
--- OUTSIDE RECORDS SUMMARY | 2024-01-16 11:51 | XMS_ITS | Encounter Summary ---
Author Organization [place] Address [address] [place] [address]. [place] [address] Care Team Providers Care Resident Programs Assistant Name Role Phone Christian Mars MD Unavailable Unavailable Coming Ana Luisa Galeana MD Primary Care Provid er Coming Ana Luisa Galeana MD Unavailable [phone] Crystal Araujo MD Unavailable [phone] [facility] Nan Nguyen RN Unavailable Unavailable Reason for Visit * Reason Comments Medication Refill Encounter Details Date Type Department Care Team (Late st Contact Info) Description 07/11/2019 Refill [facility] [address] [place] [address] Mu Hickey MD [address] [place] [address] Medication Refill Social History Tobacco Use Types [...] Miscellaneous Notes * Telephone Encounter - Tesha Mejias LPN - 07/11/2019 1:59 PM CST Patient no longer seen at [facility], established care with new PCP. Tesha Gomez MPING BOAT CAPTAIN documented in this encounter Plan of Treatment Not on file documented as of this encounter Visit Diagnoses Diagnosis Type 2 diabetes mellitus without complication, without long-term current use of insulin (H) Encounter for medication refill Issue of repeat prescriptions Benign essential hypertension Essential hypertension, benign documented in this encounter Additional Health Concerns Assessment Noted Time PHQ-9 Depression Total Score: 020 7:02 AM SHRIMPING BOAT CAPTAIN documented as of this encounter Care Teams Resident Programs Assistant Relationship Specialty Start Date [place] [address] [place] [address] PCP - General Family Practice 06/29/19 Christian Mars MD [place] Family Practice 05/26/11 [place] [address] [place] [address] Assigned PCP 07/08/19 Crystal Araujo MD [address] [place] [address] Assigned OBGYN Provider 04/11/2006/14 Nan Nguyen, BERENICE 09/09/21 08/10/22 documented as of this encounter
--- OUTSIDE RECORDS SUMMARY | 2024-01-16 11:51 | XMS_ITS | Encounter Summary ---
Author Organization [facility] Address [address] [place] [address]. [place] [address] Care Team Providers Care Federal Java Developer Name Role Phone Christian Mars MD Unavailable Unavailable Coming Ana Luisa Galeana MD Primary Care Provid er Coming Ana Luisa Galeana MD Unavailable [phone] Nan Nguyen RN Unavailable Unavailable Reason for Visit * Reason Comments Medication Refill Encounter Details Date Type Department Care Team (Late st Contact Info) Description 08/27/[address] [facility] [id number] [place] [phone] [place] [id number] [place] [phone] Medication Refill Social History Tobacco Use Types [...] COVID-19? No / Unsure 08/18/2020 1:10 PM NEEDLE LOOM OPERATOR HELPER documented as of this encounter Miscellaneous Notes * Telephone Encounter - Tesha Steinberg RN - 08/28/2020 12:42 PM NEEDLE LOOM OPERATOR HELPER Routing refill request to provider for review/approval because: Elevated PHQ-9 Tesha Steinberg RN [facility] -- Triage Nurse LE LOOM OPERATOR HELPER documented in this encounter Plan of Treatment Not on file documented as of this encounter Visit Diagnoses Diagnosis IGNACIO (generalized anxiety disorder) Generalized anxiety disorder Current mild episode of major depressive disorder, unspecified whether recurrent (H24) documented in this encounter Additional Health Concerns Assessment Noted Time PHQ-9 Depression Total Score: 5 08/19/19 21 1:08 PM NEEDLE LOOM OPERATOR HELPER documented as of this encounter Care Teams Federal Java Developer Relationship Specialty Start Date [place] [address] [place] [address] PCP - General Family Practice 06/29/19 Christian Mars MD [place] Family Practice 05/26/11 [place] [address] [place] [address] Assigned PCP 07/08/19 Nan Nguyen, BERENICE 09/09/21 08/10/22 documented as of this encounter
--- OUTSIDE RECORDS SUMMARY | 2024-01-16 11:51 | XMS_ITS | Encounter Summary ---
Author Organization [place] Address [address] [place] [address] Care Team Providers Care K 9 Police Officer Name Role Phone Christian Mars MD Unavailable Unavailable Coming Ana Luisa Galeana MD Primary Care Provid er Coming Ana Luisa Galeana MD Unavailable [phone] Crystal Araujo MD Unavailable [phone] Nan Nguyen RN Unavailable Unavailable Reason for Visit * Reason Onset Date Comments Panel Management 12/28/2019 depression scre ening Encounter Details Date Type Department Care Team (Late st Contact Info) Description 12/28/2019 [facility] [address] [phone] Eleonora Almazan CMA Panel Management (depression screening) Social History Tobacco Use Types Packs/Day Years [...] have Coronavirus / COVID-19? No / Unsure 12/05/2019 9:53 AM CDT documented as of this encounter Miscellaneous Notes * Telephone Encounter - Adams Pearl RN - 12/31/2019 2:38 PM CDT Sent patient Conisushart message, instructed to call clinic if needed before next appt Adams Pearl RN * Telephone Encounter - Eleonora Almazan CMA - 12/31/2019 10:39 AM CDT PHQ 09/17/2019 11/29/2019 12/28/2019 PHQ-9 Total Score 7 4 8 Q9: Thoughts of better off /self-harm past 2 weeks Several days Not at all Not at all F/U: Thoughts of suicide or self-harm No - - F/U: Safety concerns No - - PHQ-9 ([employer]) 12/28/2019 No Interest In Doing Things Feeling Depressed Trouble Sleeping Tired / No Energy No appetite or Over-Eating Feeling Bad about Self Trouble Concentrating Moving Slow or Restless Suicidal Thoughts Total Score 1. Little interest or pleasure in doing things 1 2. Feeling down, depressed, or hopeless 1 3. Trouble falling or staying asleep, or sleeping too much 2 4. Feeling tired or having little energy 1 5. Poor appetite or overeating 1 6. Feeling bad about yourself 1 7. Trouble concentrating 1 8. Moving slowly or restless 0 9. Suicidal or self-harm thoughts 0 PHQ-9 Total Score 8 Difficulty at work, home, or with people In the past two weeks have you had thoughts of suicide or self harm? Do you have concerns about your personal safety or the safety of others? 1. Little interest or pleasure in doing things Several days 2. Feeling down, depressed, or hopeless Several days 3. Trouble falling or staying asleep, or sleeping too much More than half the days 4. Feeling tired or having little energy Several days 5. Poor appetite or overeating Several days 6. Feeling bad about yourself Several days 7. Trouble concentrating Several days 8. Moving slowly or restless Not at all 9. Suicidal or self-harm thoughts Not at all [facility] TOTAL SCORE-----> 8 (Mild depression) Difficulty at work, home, or with people Not difficult at all Score >5, will route to triage Eleonora Almazan/MERCEDES Dominique---[facility] documented in this encounter Plan of Treatment Not on file documented as of this encounter Visit Diagnoses Not on filedocumented in this encounter Additional Health Concerns Assessment Noted Time PHQ-9 Depression Total Score: 8 12/29/19 7:11 AM CDT documented as of this encounter Care Teams K 9 Police Officer Relationship Specialty Start [place] [address] [place] [address] PCP - General Family Practice 06/29/19 Christian Mars MD [place] Family Practice 05/26/11 [place] [address] [place] [address] Assigned PCP 07/08/19 Crystal Araujo MD [address] [place] [address] Assigned OBGYN Provider 04/11/2006/14 Nan Nguyen, RN 09/09/21 08/10/22 documented as of this encounter
--- OUTSIDE RECORDS SUMMARY | 2024-01-16 11:51 | XMS_ITS | Encounter Summary ---
Author Organization [facility] Address [address] [place] [address]. [place] [address] Care Team Providers Care X Ray Consultant Name Role Phone Christian Mars MD Unavailable Unavailable Mu Hickey MD Primary Care Provider + [phone] uM Hickey MD Unavailable [phone] Coming Ana Luisa Galeana MD Primary Care Provid er Coming Ana Luisa Galeana MD Unavailable + [phone] Cyrstal Araujo MD Unavailable [phone] [facility] Nan Nguyen RN Unavailable Unavailable Reason for Visit * Reason Comments Medication Refill METFORMIN HCL Encounter Details Date Type Department Care Team (Late st Contact Info) Description 12/05/2018 Refill [facility] [address] [place] [address] Mu Hickey MD [address] [place] [phone] Medication Refill (METFORMIN HCL ) Social History Tobacco Use Types Packs/Day [...] encounter Miscellaneous Notes * Telephone Encounter - Blnaca Nevarez CMA - 12/05/2018 8:15 AM CDT METFORMIN HCL NAYELI 06/06/18 Last Labs 06/06/18 Lab Results Component Value Date A1C 10.9 06/06/2018 A1C 7.1 09/05/2017 A1C 9.0 05/25/2017 A1C 6.5 09/22/2016 A1C 5.5 02/11/2016 documented in this encounter Plan of Treatment Not on file documented as of this encounter Visit Diagnoses Diagnosis Type 2 diabetes mellitus without complication, without long-term current use of insulin (H)- Primary Diabetes mellitus, type 2 (H) Type II or unspecified type diabetes mellitus without mention of complication, not stated as uncontrolled documented in this encounter Additional Health Concerns Assessment Noted Time PHQ-9 Depression Total Score: 12 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 documented as of this encounter Care Teams X Ray Consultant Relationship Specialty Start Date End Date Mu Hickey MD [address] [phone] PCP - General Family Practice 05/25/18 06/28/19 [place] [address] [place] [address] PCP - General Family Practice 06/29/[address] Family Practice 05/26/11 Mu Hickey MD [address] [phone] Assigned PCP 06/11/18 07/07/19 [place] [address] [place] [address] Assigned PCP 07/08/19 Crystal Araujo MD [address] [place] [address] Assigned OBGYN Provider 04/11/2006/14 Nan Nguyen, RN 09/09/21 08/10/22 documented as of this encounter
--- OUTSIDE RECORDS SUMMARY | 2024-01-16 11:51 | XMS_ITS | Encounter Summary ---
Author Organization [facility] Address [address] [place] [address] Care Team Providers Care Shear Grinder Operator Helper Name Role Phone Christian Mars MD Unavailable Unavailable Christian Mars MD Primary Care Provider Unava ilable System, Provider Not In Primary Care Provider Un available Mu Hickey MD Primary Care Provider + [phone] Mu Hickey MD Unavailable [phone] Coming Ana Luisa Galeana MD Primary Care Provid er Coming Ana Luisa Galeana MD Unavailable + [phone] Crystal Araujo MD Unavailable [phone] Nan Maier RN Unavailable Unavailable Reason for Visit * Reason Comments Medication Refill atrovastatin last OV - 05/28/16 last lipid 06/11/2015-due with no appt scheduled Encounter Details Date Type Department Care Team (Late st Contact Info) Description 08/12/2016 Refill [facility] [address] [address] Christian Mars MD INACTIVE SINCE 05/19/2019 Medication Refill (atrovastatin last OV - 05/28/16 last lipid 06/11/2015-due with no appt scheduled) Social History Tobacco Use Types Packs/Day Years [...] * Telephone Encounter - Bernice Dawn - 08/12/2016 9:13 AM CST atrovastatin last OV - 05/28/16 last lipid 06/11/2015-due with no appt scheduled Bernice Dawn MA August 12, 2016 9:13 AM Recent Labs Lab Test 06/11/15 0817 04/04/15 0625 04/03/15 1805 CHOL 175 266* 342* HDL 18* 21* 23* LDL 93 Cannot estimate LDL when triglyceride exceeds 400 mg/dL Cannot estimate LDL when triglyceride exceeds 400 mg/dL TRIG 318* 2256* 846* CHOLHDLRATIO -- 12.7* 14.9* 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 documented in this encounter Plan of Treatment Not on file documented as of this encounter Visit Diagnoses Diagnosis Pure hyperglyceridemia- Primary documented in this encounter Care Teams Shear Grinder Operator Helper Relationship Specialty Start Date End Date Christian Mars MD PCP - General Family Practice 07/30/11 10/25/17 System, Provider Not In PCP - General Clinic 10/26/17 05/24/18 Mu Hickey MD [address] [place] [phone] PCP - General Family Practice 05/25/18 06/28/19 [place] [address] [place] [address] PCP - General Family Practice 06/29/19 Christian Mars MD Family Practice 05/26/11 Mu Hickey MD [address] [address] Assigned PCP 06/11/18 07/07/19 [place] [address] [place] [address] Assigned PCP 07/08/19 Crystal Araujo MD [address] [address] Assigned OBGYN Provider 04/11/2006/14 Nan Nguyen, BERENICE 09/09/21 08/10/22 documented as of this encounter
--- OUTSIDE RECORDS SUMMARY | 2024-01-16 11:51 | XMS_ITS | Encounter Summary ---
Author Organization [place] Address [address] [place] [address] Care Team Providers Care Whiting Can Worker Name Role Phone Christian aMrs MD Unavailable Unavailable Christian Mars MD Primary Care Provider Unava ilable System, Provider Not In Primary Care Provider Un available Mu Hickey MD Primary Care Provider + [phone] Mu Hickey MD Unavailable [phone] Coming Ana Luisa Galeana MD Primary Care Provid er Coming Ana Luisa Galeana MD Unavailable + [phone] Crystal Araujo MD Unavailable [phone] Nan Maier RN Unavailable Unavailable Reason for Visit * Reason Comments Medication Refill propranolol - last O V and labs 02/11/16, no future appt scheduled Encounter Details Date Type Department Care Team (Late st Contact Info) Description 04/26/[address] [address] Christian Mars MD INACTIVE SINCE 05/19/2019 Medication Refill (propranolol - last OV and labs 02/11/16, no future appt scheduled) Social History Tobacco Use Types [...] encounter Miscellaneous Notes * Telephone Encounter - Betty Patterson CMA - 04/26/2016 9:04 AM ASSISTANT DIRECTOR OF ADMISSIONS propranolol - last OV and labs 02/11/16, no future appt scheduled Office Visit on 02/11/2016 Component Date Value Ref Range Status ??? TSH 02/11/2016 1.970 0.450 - 4.500 uIU/mL Final ??? Hemoglobin A1C 02/11/2016 5.5 4.8 - 5.6 % Final Comment: Pre-diabetes: 5.7 - 6.4 Diabetes: >6.4 Glycemic control for adults with diabetes: <7.0 STANT DIRECTOR OF ADMISSIONS documented in this encounter Plan of Treatment Not on file documented as of this encounter Visit Diagnoses Diagnosis Encounter for medication refill- Primary Issue of repeat prescriptions documented in this encounter Care Teams Whiting Can Worker Relationship Specialty Start Date End Date Christian Mars MD PCP - General Family Practice 07/30/11 10/25/17 System, Provider Not In PCP - General Clinic 10/26/17 05/24/18 Mu Hickey MD [address] [phone] PCP - General Family Practice 05/25/18 06/28/19 [place] [address] [place] [address] PCP - General Family Practice 06/29/19 Christian Mars MD [facility] Practice 05/26/11 Mu Hickey MD [address] [place] [address] Assigned PCP 06/11/18 07/07/19 [place] [address] [facility] [place] [address] Assigned PCP 07/08/19 Crystal Araujo MD [address] [place] [address] Assigned OBGYN Provider 04/11/2006/14 Nan Nguyen, BERENICE 09/09/21 08/10/22 documented as of this encounter
--- OUTSIDE RECORDS SUMMARY | 2024-01-16 11:51 | XMS_ITS | Encounter Summary ---
Author Organization [facility] Address [address] [place] [address] Care Team Providers Care Environmental Health Officer Name Role Phone Christian Mars MD Unavailable Unavailable Christian Mars MD Primary Care Provider Unava ilable System, Provider Not In Primary Care Provider Un available Mu Hickey MD Primary Care Provider + [phone] Mu Hickey MD Unavailable [phone] Coming Ana Luisa Galeana MD Primary Care Provid er Coming Ana Luisa Galeana MD Unavailable + [phone] Crystal Araujo MD Unavailable [phone] Nan Maier RN Unavailable Unavailable Reason for Visit * Reason Comments Medication Refill fenofibrate last OV & Lipids 09/22/16 Encounter Details Date Type Department Care Team (Late st Contact Info) Description 12/28/2016 Refill [facility] [address] [address] Christian Mars MD INACTIVE SINCE 05/19/2019 Medication Refill (fenofibrate last OV & Lipids 09/22/16) Social History Tobacco Use Types Packs/Day Years [...] encounter Miscellaneous Notes * Telephone Encounter - DawnBernice - 12/28/2016 2:56 PM CDT fenofibrate last OV & Lipids 09/22/16 Bernice Dawn MA December 28, 2016 2:56 PM Recent Labs Lab Test 09/22/16 0851 06/11/15 0817 04/04/15 0625 04/03/15 1805 CHOL 174 175 266* 342* HDL 25* 18* 21* 23* LDL 87 93 Cannot estimate LDL when triglyceride exceeds 400 mg/dL Cannot estimate LDL when triglyceride exceeds 400 mg/dL TRIG 310* 318* 2256* 846* CHOLHDLRATIO -- -- 12.7* 14.9* documented in this encounter Plan of Treatment Not on file documented as of this encounter Visit Diagnoses Diagnosis Encounter for medication refill Issue of repeat prescriptions Hyperlipidemia Other and unspecified hyperlipidemia documented in this encounter Care Teams Environmental Health Officer Relationship Specialty Start Date End Date Christian Mars MD PCP - General Family Practice 07/30/11 10/25/17 System, Provider Not In PCP - General Clinic 10/26/17 05/24/18 Mu Hickey MD [address] [place] [phone] PCP - General Family Practice 05/25/18 06/28/19 [place] [address] [place], [place] [phone] PCP - General Family Practice 06/29/19 Christian Mars MD [facility] 05/26/11 Mu Hickey MD [address] [address] Assigned PCP 06/11/18 07/07/19 [place] [address] [address] Assigned PCP 07/08/19 Crystal Araujo MD [address] [place] [address] Assigned OBGYN Provider 04/11/2006/14 Nan Nguyen, RN 09/09/21 08/10/22 documented as of this encounter
--- OUTSIDE RECORDS SUMMARY | 2024-01-16 11:51 | XMS_ITS | Encounter Summary ---
Author Organization [facility] Address [address] [place] [address]. [place] [address] Care Team Providers Care Mammal Keeper Name Role Phone Christian Mars MD Unavailable Unavailable Coming Ana Luisa Galeana MD Primary Care Provid er Coming Ana Luisa Galeana MD Unavailable +[phone] Crystal Araujo MD Unavailable +[phone] [facility] Nan Nguyen RN Unavailable Unavailable Reason for Visit * Reason Comments Medication Refill Encounter Details Date Type Department Care Team (Late st Contact Info) Description 01/11/2020 Refill [facility] [address] [place] [address] Mu Hickey MD [address] [place] [address] Medication Refill Social History Tobacco [...] encounter Miscellaneous Notes * Telephone Encounter - Dipesh Washingtonyn - 01/11/2020 5:19 PM CDT NO LONGER PT AT [facility] documented in this encounter Plan of Treatment Not on file documented as of this encounter Visit Diagnoses Diagnosis Encounter for medication refill Issue of repeat prescriptions documented in this encounter Additional Health Concerns Assessment Noted Time PHQ-9 Depression Total Score: 8 12/29/19 7:11 AM CDT documented as of this encounter Care Teams Mammal Keeper Relationship Specialty Start Date [place] [address] [place] [address] PCP - General Family Practice 06/29/19 Christian Mars MD [facility] Practice 05/26/11 [place] [address] [place] [address] Assigned PCP 07/08/19 Crystal Araujo MD [address] [facility] [place] [address] Assigned OBGYN Provider 04/11/2006/14 Nan Nguyen, RN 09/09/21 08/10/22 documented as of this encounter
--- OUTSIDE RECORDS SUMMARY | 2024-01-16 11:51 | XMS_ITS | Encounter Summary ---
Author Organization [facility] Address [address] [place] [address] Care Team Providers Care Ship Self Defense System Mk1 Operator Name Role Phone Christian Mars MD Unavailable Unavailable Christian Mars MD Primary Care Provider Unava ilable System, Provider Not In Primary Care Provider Un available Mu Hickey MD Primary Care Provider + [phone] Mu Hickey MD Unavailable +[phone] Coming Ana Luisa Galeana MD Primary Care Provid er Coming Ana Luisa Galeana MD Unavailable + [phone] Crystal Araujo MD Unavailable +[phone] Nan Maier RN Unavailable Unavailable Reason for Visit * Reason Comments Medication Refill Fenofibrate Last OV 06/11/15 Encounter Details Date Type Department Care Team (Late st Contact Info) Description 11/01/[address] [address] Christian Mras MD INACTIVE SINCE 05/19/2019 Medication Refill (Fenofibrate Last OV 06/11/15) Social History Tobacco Use Types Packs/Day [...] encounter Miscellaneous Notes * Telephone Encounter - LiaSadie carrizales - 11/03/2015 8:39 AM CDT Fenofibrate Last OV 06/11/15 documented in this encounter Plan of Treatment Not on file documented as of this encounter Visit Diagnoses Diagnosis Encounter for medication refill- Primary Issue of repeat prescriptions documented in this encounter Care Teams Ship Self Defense System Mk1 Operator Relationship Specialty Start Date End Date Christian Mars MD PCP - General Family Practice 07/30/11 10/25/17 System, Provider Not In PCP - General Clinic 10/26/17 05/24/18 Mu Hickey MD [address] [place] [phone] PCP - General Family Practice 05/25/18 06/28/19 [place] [address] [place] [address] PCP - General Family Practice 06/29/19 Christian Mars MD [facility] Practice 05/26/11 Mu Hickey MD [address] [phone] Assigned PCP 06/11/18 07/07/19 [place] [address] [place] [address] Assigned PCP 07/08/19 Crystal Aruajo MD [address] [place] [address] Assigned OBGYN Provider 04/11/2006/14 Nan Nguyen, BERENICE 09/09/21 08/10/22 documented as of this encounter
--- OUTSIDE RECORDS SUMMARY | 2024-01-16 11:51 | XMS_ITS | Encounter Summary ---
Author Organization [facility] Address [address] [place] [address] Care Team Providers Care Felling Machine Operator Name Role Phone Christian Mars MD Unavailable Unavailable Christian Mars MD Primary Care Provider Unava ilable System, Provider Not In Primary Care Provider Un available Mu Hickey MD Primary Care Provider + [phone] Mu Hickey MD Unavailable +[phone] Coming Ana Luisa Galeana MD Primary Care Provid er Coming Ana Luisa Galaena MD Unavailable + [phone] Crystal Araujo MD Unavailable +[phone] Nan Maier RN Unavailable Unavailable Reason for Visit * Reason Comments Medication Refill Encounter Details Date Type Department Care Team (Late st Contact Info) Description 01/07/2016 Refill [facility] [address] [address] Christian aMrs MD INACTIVE SINCE 05/19/2019 Medication Refill Social [...] prescriptions documented in this encounter Care Teams Felling Machine Operator Relationship Specialty Start Date End Date Christian Mars MD PCP - General [facility] Practice 07/30/11 10/25/17 System, Provider Not In PCP - General Clinic 10/26/17 05/24/18 Mu Hickey MD [address] [phone] PCP - [facility] Practice 05/25/18 06/28/19 [place] [address] [place] [address] PCP - [facility] Practice 06/29/19 Christian Mars MD [facility] 05/26/11 Mu Hickey MD [address] [place] [phone] Assigned PCP 06/11/18 07/07/19 [place] [address] [place] [address] Assigned PCP 07/08/19 Crystal Araujo MD [address] [place] [address] Assigned OBGYN Provider 04/11/2006/14 Nan Nguyen, BERENICE 09/09/21 08/10/22 documented as of this encounter
--- OUTSIDE RECORDS SUMMARY | 2024-01-16 11:51 | XMS_ITS | Encounter Summary ---
Author Organization [facility] Address [address] [place] [address] Care Team Providers Care Radiator Repairer Name Role Phone Christian Mars MD Unavailable Unavailable Christian Mars MD Primary Care Provider Unava ilable System, Provider Not In Primary Care Provider Un available Mu Hickey MD Primary Care Provider + [phone] Mu Hickey MD Unavailable +[phone] Coming Ana Luisa Galeana MD Primary Care Provid er Coming Ana Luisa Galeana MD Unavailable + [phone] Crystal Araujo MD Unavailable +[phone] Nan Maier RN Unavailable Unavailable Reason for Visit * Reason Comments Medication Refill Last OV 09/22/16 Encounter Details Date Type Department Care Team (Late st Contact Info) Description 10/05/[address] [address] Christian Mars MD INACTIVE SINCE 05/19/2019 Medication Refill (Last OV 09/22/16) Social History Tobacco Use Types Packs/Day [...] encounter Miscellaneous Notes * Telephone Encounter - Sadie Fitzgerald - 10/05/2016 10:36 AM CDT Pending Prescriptions: Disp Refills metFORMIN (GLUCOPHAGE) 500 MG tablet [Pha*180 ta*0 Sig: TAKE 1 TABLET (500 MG) BY MOUTH 2 TIMES DAILY (WITH MEALS) Last OV 09/22/16 Lipid 09/29/16 BMP 09/22/16 TSH 02/11/16 A1C 09/22/16 documented in this encounter Plan of Treatment Not on file documented as of this encounter Visit Diagnoses Diagnosis Encounter for medication refill Issue of repeat prescriptions documented in this encounter Care Teams Radiator Repairer Relationship Specialty Start Date End Date Christian Mars MD PCP - General Family Practice 07/30/11 10/25/17 System, Provider Not In PCP - General Clinic 10/26/17 05/24/18 Mu Hickey MD [address] [phone] PCP - General Family Practice 05/25/18 06/28/19 [place] [address] [place] [address] PCP - General Family Practice 06/29/19 Christian Mars MD [facility] Practice 05/26/11 Mu Hickey MD [address] [phone] Assigned PCP 06/11/18 07/07/19 [place] [address] [address] Assigned PCP 07/08/19 Crystal Araujo MD [address] [place] [address] Assigned OBGYN Provider 04/11/2006/14 Nan Nguyen, BERENICE 09/09/21 08/10/22 documented as of this encounter
--- OUTSIDE RECORDS SUMMARY | 2024-01-16 11:51 | XMS_ITS | Encounter Summary ---
Author Organization [facility] Address [address] [place] [address] Care Team Providers Care Control Director Name Role Phone Christian Mars MD Unavailable Unavailable Coming Ana Luisa Galeana MD Primary Care Provid er Coming Ana Luisa Galeana MD Unavailable +- [phone] Crystal Araujo MD Unavailable [phone] [facility] Nan Nguyen RN Unavailable Unavailable Reason for Visit * Reason Comments Medication Refill Encounter Details Date Type Department Care Team (Late st Contact Info) Description 01/17/[address] [address] Ryan Galvan MD Medication Refill [...] encounter Miscellaneous Notes * Telephone Encounter - Cathi Gonzales RN - 01/17/2020 9:46 AM CDT Prescription approved per [facility] Refill Protocol. Cathi Gonzales, RN documented in this encounter Plan of Treatment Not on file documented as of this encounter Visit Diagnoses Diagnosis Type 2 diabetes mellitus without complication, without long-term current use of insulin (H) documented in this encounter Additional Health Concerns Assessment Noted Time PHQ-9 Depression Total Score: 8 12/29/19 20 7:11 AM CDT documented as of this encounter Care Teams Control Director Relationship Specialty Start Date [place] [address] [place] [address] PCP - General Family Practice 06/29/19 Christian Mars MD [facility] Practice 05/26/11 [place] [address] [place] [address] Assigned PCP 07/08/19 Crystal Araujo MD [address] [place] [address] Assigned OBGYN Provider 04/11/2006/14 Nan Nguyen, BERENICE 09/09/21 08/10/22 documented as of this encounter
--- OUTSIDE RECORDS SUMMARY | 2024-01-16 11:52 | XMS_ITS | Encounter Summary ---
Author Organization [facility] Address [address] [place] [address] Care Team Providers Care Malthouse Laborer Name Role Phone Christian Mars MD Unavailable Unavailable Christian Mars MD Primary Care Provider Unava ilable System, Provider Not In Primary Care Provider Un available Mu Hickey MD Primary Care Provider + [phone] Mu Hickey MD Unavailable +[phone] Coming Ana Luisa Galeana MD Primary Care Provid er Coming Ana Luisa Galeana MD Unavailable + [phone] Crystal Araujo MD Unavailable +[phone] Nan Maier RN Unavailable Unavailable Reason for Visit * Reason Comments Medication Refill Encounter Details Date Type Department Care Team (Late st Contact Info) Description 10/02/2015 Refill [facility] [address] [address] Christian Mars MD INACTIVE [...] prescriptions documented in this encounter Care Teams Malthouse Laborer Relationship Specialty Start Date End Date Christian Mars MD PCP - General [facility] Practice 07/30/11 10/25/17 System, Provider Not In PCP - General Clinic 10/26/17 05/24/18 Mu Hickey MD [address] [phone] PCP - [facility] 05/25/18 06/28/19 [place] [address] [place] [address] PCP - [facility] 06/29/19 Christian Mars MD [facility] 05/26/11 Mu Hickey MD [address] [place] [phone] Assigned PCP 06/11/18 07/07/19 [place] [address] [place] [address] Assigned PCP 07/08/19 Crystal Araujo MD [address] [place] [address] Assigned OBGYN Provider 04/11/2006/14 Nan Nguyen, BERENICE 09/09/21 08/10/22 documented as of this encounter
--- OUTSIDE RECORDS SUMMARY | 2024-01-16 11:52 | XMS_ITS | Encounter Summary ---
Author Organization [facility] [facility] Address [address] [place] [address] Care Team Providers Care Sterile Process Coordinator Name Role Phone Christian Mars MD Unavailable Unavailable Christian Mars MD Primary Care Provider Unava ilable System, Provider Not In Primary Care Provider Un available Mu Hickey MD Primary Care Provider + [phone] Mu Hickey MD Unavailable +[phone] Coming Ana Luisa Galeana MD Primary Care Provid er Coming Ana Luisa Galeana MD Unavailable + [phone] Crystal Araujo MD Unavailable +[phone] Nan Maier RN Unavailable Unavailable Reason for Visit * Reason Comments Medication Refill Lorazepam, last OV 1 08/12/14 and no f/u Encounter Details Date Type Department Care Team (Late st Contact Info) Description 09/11/[address] [address] Christian Mars MD INACTIVE SINCE 05/19/2019 Medication Refill (Lorazepam, last OV 06/11/15 and no f/u ) Social History Tobacco Use Types Packs/Day [...] encounter Miscellaneous Notes * Telephone Encounter - Yuridia Phelan CMA - 09/11/2015 12:14 PM CDT Lorazepam, last OV 06/11/15 and no f/u ALECIA PAIGE documented in this encounter Plan of Treatment Not on file documented as of this encounter Visit Diagnoses Diagnosis Refill clinic medication management patient- Primary documented in this encounter Care Teams Sterile Process Coordinator Relationship Specialty Start Date End Date Christian Mars MD PCP - General Family Practice 07/30/11 10/25/17 System, Provider Not In PCP - General Clinic 10/26/17 05/24/18 Mu Hickey MD [address] [phone] PCP - General Family Practice 05/25/18 06/28/19 [place] [address] [place] [address] PCP - General Family Practice 06/29/19 Christian Mars MD Family Practice 05/26/11 Mu Hickey MD [address] [phone] Assigned PCP 06/11/18 07/07/19 [place] [address] [place] [address] Assigned PCP 07/08/19 Crystal Araujo MD [address] [place] [address] Assigned OBGYN Provider 04/11/2006/14 Nan Nguyen RN 09/09/21 08/10/22 documented as of this encounter
--- OUTSIDE RECORDS SUMMARY | 2024-01-16 11:52 | XMS_ITS | Encounter Summary ---
Author Organization [facility] Address [address] [place] [address] Care Team Providers Care Coil Tester Name Role Phone Christian Mars MD Unavailable Unavailable Christian Mars MD Primary Care Provider Unava ilable System, Provider Not In Primary Care Provider Un available Mu Hickey MD Primary Care Provider + [phone] Mu Hickey MD Unavailable +[phone] Coming Ana Luisa Galeana MD Primary Care Provid er Coming Ana Luisa Galeana MD Unavailable + [phone] Crystal Araujo MD Unavailable +[phone] Nan Maier RN Unavailable Unavailable Reason for Visit * Reason Comments Medication Refill Encounter Details Date Type Department Care Team (Late st Contact Info) Description 05/03/[address] [address] Christian Mars MD INACTIVE SINCE [...] encounter Miscellaneous Notes * Telephone Encounter - Yadira Fitzgeraldu - 05/05/2015 8:18 AM CST Last office visit 04/14/15 M SIGNALER documented in this encounter Plan of Treatment Not on file documented as of this encounter Visit Diagnoses Diagnosis Encounter for medication refill- Primary Issue of repeat prescriptions documented in this encounter Care Teams Coil Tester Relationship Specialty Start Date End Date Christian Mars MD PCP - General Family Practice 07/30/11 10/25/17 System, Provider Not In PCP - General Clinic 10/26/17 05/24/18 Mu Hickey MD [address] [place] [phone] PCP - General Family Practice 05/25/18 06/28/19 [place] [address] [place] [address] PCP - General [facility] Practice 06/29/19 Christian Mars MD [facility] Practice 05/26/11 Mu Hickey MD [address] [place] [phone] Assigned PCP 06/11/18 07/07/19 [place] [address] [place] [address] Assigned PCP 07/08/19 Crystal Araujo MD [address] [place] [address] Assigned OBGYN Provider 04/11/2006/14 Nan Nguyen, BERENICE 09/09/21 08/10/22 documented as of this encounter
--- OUTSIDE RECORDS SUMMARY | 2024-01-16 11:52 | XMS_ITS | Encounter Summary ---
Author Organization [facility] Address [address] [place] [address] Care Team Providers Care Burr Picker Name Role Phone Christian Mars MD Unavailable Unavailable Christian Mars MD Primary Care Provider Unava ilable System, Provider Not In Primary Care Provider Un available Mu Hickey MD Primary Care Provider + [phone] Mu Hickey MD Unavailable +[phone] Coming Ana Luisa Galeana MD Primary Care Provid er Coming Ana Luisa Galeana MD Unavailable + [phone] Crystal Araujo MD Unavailable +[phone] Nan Maier RN Unavailable Unavailable Reason for Visit * Reason Comments Medication Refill Metformin, Last OV 1 08/12/14, Last Labs 06/11/15 Encounter Details Date Type Department Care Team (Late st Contact Info) Description 07/03/[address] [address] Christian Mars MD INACTIVE SINCE 05/19/2019 Medication Refill (Metformin, Last OV 06/11/15, Last Labs 06/11/15) Social History Tobacco Use Types Packs/Day [...] encounter Miscellaneous Notes * Telephone Encounter - Amanda rAmenta - 07/03/2015 8:20 AM CST Metformin, Last OV 06/11/15, Last Labs 06/11/15 Amanda Armenta CMA 8:20 AM July 03, 2015 ESSING LEAD documented in this encounter Plan of Treatment Not on file documented as of this encounter Visit Diagnoses Diagnosis Encounter for medication refill- Primary Issue of repeat prescriptions documented in this encounter Care Teams Burr Picker Relationship Specialty Start Date End Date Christian Mars MD PCP - General Family Practice 07/30/11 10/25/17 System, Provider Not In PCP - General Clinic 10/26/17 05/24/18 Mu Hickey MD [address] [phone] PCP - General Family Practice 05/25/18 06/28/19 [place] [address] [place] [address] PCP - General Family Practice 06/29/19 Christian Mars MD [facility] Practice 05/26/11 Mu Hickey MD [address] [phone] Assigned PCP 06/11/18 07/07/19 [place] [address] [place] [address] Assigned PCP 07/08/19 Crystal Araujo MD [address] [place] [address] Assigned OBGYN Provider 04/11/2006/14 Nan Nguyen RN 09/09/21 08/10/22 documented as of this encounter
--- OUTSIDE RECORDS SUMMARY | 2024-01-16 11:52 | XMS_ITS ---
Author Organization [facility] Address [address] [place] [address] Care Team Providers Care Home Improvement Contractor Name Role Phone Christian Mars MD Unavailable Unavailable Coming Ana Luisa Galeana MD Primary Care Provid er Coming Ana Luisa Galeana MD Unavailable +[phone] Transplant Episode Kidney Potential Donor [facility] ([place], [place]) - [facility] Evaluation began on 05/20/2008 Marked as Active on 05/20/2008 Kidney CoordinatorCandi Lopez RN Phone: N/A Fax: N/A Email: [email or web address] Care Team Name Role Phone Fax Email Candi Lopez RN Kidney Coordinator N/A N/A Events Pre-Donation Referred: 05/20/2008 Evaluation began: 05/20/2008
--- OUTSIDE RECORDS SUMMARY | 2024-01-16 11:52 | XMS_ITS | Encounter Summary ---
Author Organization [facility] Address [address] [place] [address] Care Team Providers Care Biochemistry Professor Name Role Phone Christian Mars MD Unavailable Unavailable Christian Mars MD Primary Care Provider Unava ilable System, Provider Not In Primary Care Provider Un available Mu Hickey MD Primary Care Provider + [phone] Mu Hickey MD Unavailable +[phone] Coming Ana Luisa Galeana MD Primary Care Provid er Coming Ana Luisa Galeana MD Unavailable + [phone] Crystal Araujo MD Unavailable +[phone] Nan Maier RN Unavailable Unavailable Reason for Visit * Reason Comments Medication Refill Encounter Details Date Type Department Care Team (Late st Contact Info) Description 06/06/[address] [address] Christian Mars MD INACTIVE SINCE [...] Primary documented in this encounter Care Teams Biochemistry Professor Relationship Specialty Start Date End Date Christian Mars MD PCP - General Family Practice 07/30/11 10/25/17 System, Provider Not In PCP - General Clinic 10/26/17 05/24/18 Mu Hickey MD [address] [phone] PCP - General Family Practice 05/25/18 06/28/19 [place] [address] [place] [address] PCP - General [facility] Practice 06/29/19 Christian Mars MD [facility] 05/26/11 Mu Hickey MD [address] [place] [address] Assigned PCP 06/11/18 07/07/19 [place] [address] [place] [address] Assigned PCP 07/08/19 Crystal Araujo MD [address] [place] [address] Assigned OBGYN Provider 04/11/2006/14 Nna Nguyen, BERENICE 09/09/21 08/10/22 documented as of this encounter
--- OUTSIDE RECORDS SUMMARY | 2024-01-16 11:52 | XMS_ITS | Encounter Summary ---
Author Organization [facility] Address [address] [place] [address]. [place] [address] Care Team Providers Care Chief Deputy Clerk/Bailiff Name Role Phone Christian Mars MD Unavailable Unavailable Christian Mars MD Primary Care Provider Unava ilable System, Provider Not In Primary Care Provider Un available Mu Hickey MD Primary Care Provider + [phone] Mu Hickey MD Unavailable +[phone] Coming Ana Luisa Galeana MD Primary Care Provid er Coming Ana Luisa Galeana MD Unavailable + [phone] Crystal Araujo MD Unavailable +[phone] Nan Maier RN Unavailable Unavailable Reason for Visit * Reason Comments Medication Refill HCTZ & Inderal - las t Ov-04-14-15 last labs 04-07-15 @ hospital encounter Encounter Details Date Type Department Care Team (Late st Contact Info) Description 05/29/2015 Refill [facility] [address] [place] [address] Darien Saravia MD XXX RETIRED XXX [address] [place] [address] Medication Refill (HCTZ & Inderal - last Ov04-14-15 last labs 04-07-15 @ hospital encounter) Social History Tobacco Use Types Packs/Day Years [...] * Telephone Encounter - Bernice Dawn - 05/29/2015 8:08 AM CST HCTZ & Inderal - last Ov-04-14-15 last labs 04-07-15 @ hospital encounter Bernice Dawn MA May 29, 2015 8:08 AM SIFICATION INSPECTOR documented in this encounter Plan of Treatment Not on file documented as of this encounter Visit Diagnoses Diagnosis Encounter for medication refill- Primary Issue of repeat prescriptions documented in this encounter Care Teams Chief Deputy Clerk/Bailiff Relationship Specialty Start Date End Date Christian Mars MD PCP - General Family Practice 07/30/11 10/25/17 System, Provider Not In PCP - General Clinic 10/26/17 05/24/18 Mu Hickey MD [address] [phone] PCP - General Family Practice 05/25/18 06/28/19 [place] [address] [place] [address] PCP - General Family Practice 06/29/19 Christian Mars MD [facility] Practice 05/26/11 Mu Hickey MD [address] [phone] Assigned PCP 06/11/18 07/07/19 [place] [address] [place] [address] Assigned PCP 07/08/19 Crystal Araujo MD [address] [place] [address] Assigned OBGYN Provider 04/11/2006/14 Nan Nguyen, BERENICE 09/09/21 08/10/22 documented as of this encounter
--- OUTSIDE RECORDS SUMMARY | 2024-01-16 11:52 | XMS_ITS | Encounter Summary ---
Author Organization [facility] Address [address] [place] [address] Care Team Providers Care Pharmacy Manager Name Role Phone Christian Mars MD Unavailable Unavailable Christian Mars MD Primary Care Provider Unava ilable System, Provider Not In Primary Care Provider Un available Mu Hickey MD Primary Care Provider + [phone] Mu Hickey MD Unavailable [phone] Coming Ana Luisa Galeana MD Primary Care Provid er Coming Ana Luisa Galeana MD Unavailable + [phone] Crystal Araujo MD Unavailable [phone] Nan Maier RN Unavailable Unavailable Reason for Visit * Reason Comments Medication Refill Encounter Details Date Type Department Care Team (Late st Contact Info) Description 03/22/2015 Refill [facility] [address] [address] Christian Mars MD INACTIVE SINCE [...] prescriptions documented in this encounter Care Teams Pharmacy Manager Relationship Specialty Start Date End Date Christian Mars MD PCP - General [facility] 07/30/11 10/25/17 System, Provider Not In PCP - General Clinic 10/26/17 05/24/18 Mu Hickey MD [address] [phone] PCP - [facility] 05/25/18 06/28/19 [place] [address] [place] [address] PCP - [facility] 06/29/19 Christian Mars MD [facility] 05/26/11 Mu Hickey MD [address] [place] [phone] Assigned PCP 06/11/18 07/07/19 [place] [address] [place] [address] Assigned PCP 07/08/19 Crystal Araujo MD [address] [place] [address] Assigned OBGYN Provider 04/11/2006/14 Nan Nguyen, BERENICE 09/09/21 08/10/22 documented as of this encounter
--- OUTSIDE RECORDS SUMMARY | 2024-01-16 11:52 | XMS_ITS | Encounter Summary ---
Author Organization [facility] Address [address] [place] [address] Care Team Providers Care Manager Environmental Services Name Role Phone Christian Mars MD Unavailable Unavailable Christian Mars MD Primary Care Provider Unava ilable System, Provider Not In Primary Care Provider Un available Mu Hickey MD Primary Care Provider + [phone] Mu Hickey MD Unavailable [phone] Coming Ana Luisa Galeana MD Primary Care Provid er Coming Ana Luisa Galeana MD Unavailable + [phone] Crystal Araujo MD Unavailable [phone] Nan Maier RN Unavailable Unavailable Reason for Visit * Reason Comments Medication Refill Encounter Details Date Type Department Care Team (Late st Contact Info) Description 07/06/2015 Refill [facility] [address] [address] Christian Mars MD INACTIVE SINCE [...] prescriptions documented in this encounter Care Teams Manager Environmental Services Relationship Specialty Start Date End Date Christian Mars MD PCP - General [facility] Practice 07/30/11 10/25/17 System, Provider Not In PCP - General Clinic 10/26/17 05/24/18 Mu Hickey MD [address] [phone] PCP - [facility] 05/25/18 06/28/19 [place] [address] [place] [address] PCP - [facility] 06/29/19 Christian Mars MD [facility] 05/26/11 Mu Hickey MD [address] [place] [phone] Assigned PCP 06/11/18 07/07/19 [place] [address] [place] [address] Assigned PCP 07/08/19 Crystal Araujo MD [address] [place] [address] Assigned OBGYN Provider 04/11/2006/14 Nan Nguyen, BERENICE 09/09/21 08/10/22 documented as of this encounter
[2024-01-16 13:15] LABS: Glucose, Point-of-Care* 244 mg/dl (60-115)
[2024-01-16 13:29] LABS: Lactate* 1.6 mmol/L (0.5-1.9)
[2024-01-16] MEDS: LACTATED RINGERS 500 ML 500 ML IV (13:35)
--- NOTE | 2024-01-16 13:37 | CRLHL7_ITS ---
For Patients: As a result of the Century Cures Act, medical imaging exams and procedure reports are released immediately into your electronic medical record. You may view this report before your referring provider. If you have questions, please contact your health care provider. INDICATION: Chest pain TECHNIQUE: CT chest PE was acquired with 95 cc Isovue 370 intravenous contrast. COMPARISON: None. FINDINGS: Heart and vasculature: Opacification of the pulmonary artery is suboptimal some likely mixing of unopacified blood from the inferior vena cava. This mildly reduces sensitivity although no definite pulmonary emboli are seen. No pericardial effusion. Thoracic aorta is normal in caliber. Mild coronary atherosclerosis. Lungs and pleural: No pleural effusion or pneumothorax. 3 millimeter noncalcified pulmonary nodules left lower lobe (series 5, image 86 and 116). Lymph nodes/mediastinum: No mediastinal, hilar, or axillary adenopathy. Chest wall: No masses. Upper abdomen: Normal. Bones: Unremarkable for age. IMPRESSION: 1. Suboptimal examination for the detection of pulmonary embolus without definite pulmonary emboli. 2. Mild coronary atherosclerosis. 3. Indeterminate pulmonary nodules left lower lobe measuring 3 millimeters. Management as per Fleischner society criteria below. SOCIETY GUIDELINES - SOLID NODULES: MULTIPLE LOW RISK - nodule less than 6 mm: No routine follow-up. MULTIPLE HIGH RISK - nodule less than 6 mm: Optional CT at 12 months. Please note that all CT scans at this facility use dose modulation, iterative reconstruction, and/or weight-based dosing when appropriate to reduce radiation dose to as low as reasonably achievable. Dictated by Kevin Gregory MD @ 01/16/2024 3:45:23 PM (Electronically Signed)
[2024-01-16] MEDS: diphenhydrAMINE 50 MG/ML inj 25 MG IVP (13:58)
[2024-01-16] MEDS: LORazepam 2 MG/ML inj 0.5 MG IVP (14:00)
[2024-01-16 14:07] LABS: Appearance Urine Clear (Clear); Bilirubin Urine Negative (Negative); Blood Urine Negative (Negative); Color Urine Yellow (Yellow); Glucose Urine 2+ (Negative); Ketones Urine 2+ (Negative); Leukocyte Esterase Urine Negative (Negative); Nitrite Urine Negative (Negative); Protein Urine Negative (Negative); Specific Gravity Urine <= 1.005 (1.000-1.030); Urobilinogen Urine 0.2 (0.2-1.0); pH Urine 5.5 (5.0-8.5)
[2024-01-16 14:33] LABS: RBC Urine 0-2 (0-2); WBC Urine 0-2 (0-5)
--- NOTE | 2024-01-16 16:50 | PM.IMHP1 ---
Hospitalist- H&P: HPI History of Present Illness Date Seen: 01/16/24 Chief complaint: nausea, vomiting, diarrhea Narrative: Isabela Pate is a 53 year old female who presented to the ER for nausea, vomiting, and diarrhea that began this morning. It woke her up around 0600, multiple episodes of nonbloody diarrhea, nonbloody emesis. No recent sick contacts, had a frozen dinner last night. No new medications, no missed medications, no diet changes. Associated symptoms: abdominal cramping, chills, headache. Also notes a pressure across her chest. No fever. Called the ambulance, who brought her to ED; received IVFs, Ativan, and Zofran en route. ER Course and findings: - troponin negative x2, sinus rhythm + prolonged QT on EKG - no acute findings on CTA chest (3mm nodules LLL, nonspecific) or CT ab/pelvis - BG 355 (known DM) - WBC 16 with PMN predominance - lactate 2.7 --> 1.6 after IVFs - received Ativan and Benadryl for vomiting (Zofran held given prolonged QT), still unable to tolerate po intake Upon arrival to the floor, patient is still vomiting after oral intake. She continues to have intermittent chest pressure and a headache. Isabela is admitted for IVFs, symptom management, cardiac rule out. Histories updated below, PCP is Dr. Fabian Galeana at [facility]. Review of Systems Status of ROS: Reports: 10 or more systems reviewed and unremarkable except as noted in History and below [facility] Medical History (Updated 01/16/24 @ 20:13 by Preeti Grewal MD) Pancreatitis ?K85.90 - Acute pancreatitis without necrosis or infection, unspecified (ICD-10) Hyperlipidemia ?E78.5 - Hyperlipidemia, unspecified (ICD-10) Essential hypertension ?I10 - Essential (primary) hypertension (ICD-10) Anxiety ?F41.9 - Anxiety disorder, unspecified (ICD-10) Non-insulin dependent diabetes mellitus Surgical History (Updated 01/16/24 @ 16:51 by Preeti Grewal MD) H/O tubal ligation ?Z98.51 - Tubal ligation status (ICD-10) H/O: hysterectomy ?Z90.710 - Acquired absence of both cervix and uterus (ICD-10) Social History (Updated 01/16/24 @ 18:28 by Preeti Grewal MD) Narrative: Lives with son in [place], works from home. Nonsmoker, no ETOH, rare THC gummies. Sister Kelly would be MDM if needed, requests Full Code status. What is your current living situation?: I presently have a place to live Problems where you live: no known problems Problems where you live details: none In the past 12 months, utilities in danger of being shut off: no In past 12 months, lack of transportation kept you from medical appts, meetings, work, or getting things needed for daily living: no In the past 12 mos, have been you worried that your food would run out before you had money to buy more?: never true In the past 12 mos, the food you bought just didn't last and you didn't have money to buy more?: never true Highest level of school completed/degree received: high school graduate Smoking Status: Former smoker How often do you have a drink containing alcohol: monthly or less Alcohol type: beer How many standard drinks containing alcohol do you have on a typical day: 1 or 2 How often do you have six or more drinks on one occasion: Never AUDIT-C Alcohol total score: 1 Non-prescribed substance use: marijuana (any form) Non-prescribed substance use details: THC gummies Caffeine: Yes How often does anyone, including family, friends and others, physically hurt you: never How often does anyone, including family, friends and others, insult or talk down to you: never How often does anyone, including family, friends and others, threaten you with harm: never How often does anyone, including family, friends and others, scream or curse at you: never service: No Meds Home Medications and Allergies Home Medications ?Medication ?Instructions ?Recorded ?Confirmed ?Type atorvastatin 40 mg tablet 40 mg PO DAILY 01/16/24 01/16/24 History empagliflozin 25 mg tablet 25 mg PO DAILY 01/16/24 01/16/24 History (Jardiance) fenofibrate 160 mg tablet 160 mg PO DAILY 01/16/24 01/16/24 History glimepiride 4 mg tablet 4 mg PO DAILY 01/16/24 01/16/24 History lisinopril 20 mg tablet 20 mg PO DAILY 01/16/24 01/16/24 History lorazepam 1 mg tablet (Ativan) 1 mg PO Q8H PRN 01/16/24 01/16/24 History metformin 500 mg tablet,extended 1,000 mg PO BID 01/16/24 01/16/24 History release 24 hr paroxetine HCl 40 mg tablet 40 mg PO DAILY 01/16/24 01/16/24 History propranolol 20 mg tablet 20 mg PO BID 01/16/24 01/16/24 History zolpidem 10 mg tablet 10 mg PO QPM PRN 01/16/24 01/16/24 History Allergies Allergy/AdvReac Type Severity Reaction Status Date / Time niacin Allergy Verified 01/16/24 10:01 Exam Narrative: Exam Narrative: GEN: Alert and oriented, appears ill but nontoxic. Vomited x1 during my visit HEENT: EOMIs bilaterally, no scleral icterus CV: RRR, No concerning murmurs, rubs, or gallops R: LCTA bilaterally without concerning wheezing Ab: soft, no distention, tolerates palpation Ext: wwp, no concerning edema Skin: No concerning skin lesions or rashes on exposed skin Neuro: Nonfocal Psych: Appropriate Const: Vital Signs, click to edit/add: Vital Signs - 24 hr 01/16/24 09:55 01/16/24 09:55 01/16/24 10:00 Temperature 97.3 F L Pulse Rate 84 Pulse Rate [Right Pulse Oximeter] 71 Respiratory Rate 18 Blood Pressure Blood Pressure [Ri ght Upper Arm] 155/91 H Pulse Oximetry 100 96 99 Oxygen Delivery Me thod Room Air Oxygen Flow Rate 01/16/24 10:01 01/16/24 10:47 01/16/24 10:49 Temperature Pulse Rate 72 90 86 Pulse Rate [Right Pulse Oximeter] Respiratory Rate Blood Pressure 171/113 H 180/117 H Blood Pressure [Ri ght Upper Arm] Pulse Oximetry 98 99 98 Oxygen Delivery Me thod Oxygen Flow Rate 01/16/24 10:50 01/16/24 11:00 01/16/24 11:02 Temperature Pulse Rate 74 71 74 Pulse Rate [Right Pulse Oximeter] Respiratory Rate Blood Pressure 172/96 H Blood Pressure [Ri ght Upper Arm] Pulse Oximetry 99 99 98 Oxygen Delivery Me thod Oxygen Flow Rate 01/16/24 11:29 01/16/24 11:30 01/16/24 11:32 Temperature Pulse Rate 89 86 Pulse Rate [Right Pulse Oximeter] Respiratory Rate Blood Pressure 169/105 H Blood Pressure [Ri ght Upper Arm] Pulse Oximetry 93 93 94 Oxygen Delivery Me thod Nasal Cannula Oxygen Flow Rate 1 01/16/24 11:33 01/16/24 12:00 01/16/24 12:02 Temperature Pulse Rate 87 90 Pulse Rate [Right Pulse Oximeter] Respiratory Rate Blood Pressure 159/98 H Blood Pressure [Ri ght Upper Arm] Pulse Oximetry 96 96 Oxygen Delivery Me thod Oxygen Flow Rate 01/16/24 12:30 01/16/24 12:32 01/16/24 13:00 Temperature Pulse Rate 94 96 94 Pulse Rate [Right Pulse Oximeter] Respiratory Rate Blood Pressure 157/97 H Blood Pressure [Ri ght Upper Arm] Pulse Oximetry 92 91 93 Oxygen Delivery Me thod Oxygen Flow Rate 01/16/24 13:01 01/16/24 13:02 01/16/24 13:34 Temperature Pulse Rate 94 95 100 Pulse Rate [Right Pulse Oximeter] Respiratory Rate Blood Pressure 160/94 H Blood Pressure [Ri ght Upper Arm] Pulse Oximetry 92 91 99 Oxygen Delivery Me thod Oxygen Flow Rate 01/16/24 13:35 01/16/24 13:36 01/16/24 13:37 Temperature Pulse Rate 98 93 Pulse Rate [Right Pulse Oximeter] Respiratory Rate Blood Pressure 166/114 H Blood Pressure [Ri ght Upper Arm] Pulse Oximetry 99 100 100 Oxygen Delivery Me thod Oxygen Flow Rate 01/16/24 14:00 01/16/24 14:02 01/16/24 14:30 Temperature Pulse Rate 86 89 98 Pulse Rate [Right Pulse Oximeter] Respiratory Rate Blood Pressure 167/97 H Blood Pressure [Ri ght Upper Arm] Pulse Oximetry 99 98 94 Oxygen Delivery Me thod Oxygen Flow Rate 01/16/24 14:32 01/16/24 15:02 Temperature Pulse Rate 101 H Pulse Rate [Right Pulse Oximeter] Respiratory Rate Blood Pressure 145/93 H 150/88 H Blood Pressure [Ri ght Upper Arm] Pulse Oximetry 89 Oxygen Delivery Me thod Oxygen Flow Rate Hospitalist - H&P: Result Labs Labs: Short CBC 01/16/24 Range/Units 10:41 WBC 16.56 H (4.50-11.00) K/uL Hgb 16.8 H (12.0-16.0) gm/dL Hct 48.2 (33.0-51.0) % Plt Count 361 (140-440) K/uL BMP 01/16/24 10:41 Sodium 139 Potassium 4.1 Chloride 103 Carbon Dioxide 15 L BUN 19 Creatinine 1.0 Glucose 355 H* Calcium 10.2 Liver Function 01/16/24 Range/Units 10:41 Total Bilirubin 1.5 (0.1-1.5) mg/dL Direct Bilirubin 0.5 (0.0-0.5) mg/dL AST 24 (12-35) U/L ALT 29 (4-35) U/L Alkaline Phosphatase 94 (40-150) U/L Albumin 5.5 H (3.3-5.0) g/dL Urine 01/16/24 Range/Units 13:27 Urine Color Yellow (Yellow) Urine Appearance Clear (Clear) Urine pH 5.5 (5.0-8.5) Ur Specific [place] <= 1.005 (1.000-1.030) Urine Protein Negative (Negative) Urine Glucose (UA) 2+ A (Negative) Assessment and Plan Assessment and plan (1) Nausea vomiting and diarrhea: Problem comment: - likely viral illness; ddx includes atypical pancreatitis, bacterial infection - reassuring imaging in ED on 01/15 - IVFs, antiemetics, monitoring Status: Acute (2) Prolonged Q-T interval on ECG: Problem comment: - no previous EKGs on file - received Zofran in ambulance, will hold off on continuing this - Mg and K normal, follow on telemetry Status: Acute (3) Chest pain: Problem comment: - ddx: GERD vs ACS vs pancreatitis vs muscular - follow troponins, on telemetry, add PPI, pain management Status: Acute (4) Non-insulin dependent diabetes mellitus: Problem comment: - accuchecks and SSI, holding home Metformin and Jardiance Status: Acute (5) Anxiety: Problem comment: - continue Paxil (if can tolerate pill) to reduce risk of withdrawal Status: Acute (6) Essential hypertension: Status: Acute (7) Hyperlipidemia: Status: Acute (8) Elevated lactic acid level: Problem comment: - likely 2/2 dehydration, improved with IVF administration in ED Status: Acute Plan - per above - Sister updated at bedside, questions answered
[2024-01-16 17:30] LABS: Magnesium* 2.1 mg/dL (1.5-2.6)
[2024-01-16] MEDS: ACETAMINOPHEN 325 MG TABLET 650 MG PO (18:02)
--- NOTE | 2024-01-16 18:27 | PC.NURSE ---
End of Shift: Patient arrived to the floor about 1658. Patient hypertensive, but stable, lungs clear, BS hypoactive, IV intact and SL. Patient reports abdominal pain/cramping and chest pain/dull 4/10, but also a headache 6/10, tylenol given once. Patient had an emesis of 350 which contained the tylenol and popsicle she consumed. Patient is now sipping on broth. Since admission patient has urinated once and had 1 small loose stool. Patient is independent in room and continues to have nausea.
[2024-01-16 18:32] LABS: HCO3 VBG 18 mmol/L (21-28); PCO2 VBG 29 mmHG (40-50); PO2 VBG < 30.1 mmHG (25-47); pH VBG 7.415 (7.32-7.43)
[2024-01-16 19:02] LABS: Troponin I* 0.02 ng/mL (0.01-0.04)
[2024-01-16] MEDS: METOCLOPRAMIDE HCL 5 MG/ML INJ 10 MG IVP (19:06)
[2024-01-16] MEDS: MORPHINE 4 MG/ML INJ IVP (19:09)
[2024-01-16] MEDS: PANTOPRAZOLE SODIUM 40 MG INJ IVP (19:11)
[2024-01-16] MEDS: 0.9 % SODIUM CHLORIDE 1000 ml 1,000 ML 125 ML IV (19:13)
[2024-01-16] MEDS: INSULIN ASPART 100 UNIT/ML SUBCUT (21:33)
[2024-01-17 03:00] VITALS: BP 108/59; PULSE 88; RESP 18; TEMP 36.9; O2SAT 93
[2024-01-17] MEDS: 0.9 % SODIUM CHLORIDE 1000 ml 1,000 ML 125 ML IV ×2 (03:04→10:57)
--- NOTE | 2024-01-17 06:42 | PC.NURSE ---
Shift note: Pt is doing well, no fever, N/V and diarrhea reported. Pt complained of chills at the start of the shift at 1900, Warm blanket given which appeared effective. Pt wake up from sleep and verbalized feeling good. Ambulated independent in room. Vitally stable.
[2024-01-17 06:44] LABS: Basophils Absolute Auto 0.04 K/uL (0.00-0.30); Basophils Percent Auto 0.4 % (0.0-3.0); Eosinophils Absolute Auto 0.02 K/uL (0.00-0.50); Eosinophils Percent Auto 0.2 % (0.0-7.0); Hematocrit 36.3 % (33.0-51.0); Hemoglobin* 12.3 gm/dL (12.0-16.0); Immature Granulocytes Abs Auto 0.01 K/uL (0.00-0.30); Immature Granulocytes Pct Auto 0.1 %; Lymphocytes Percent Auto 11.5 % (20-44); Mean Corpuscular HGB Conc 34 gm/dL (32-36); Mean Corpuscular Hemoglobin 28 pg (26-34); Mean Corpuscular Volume 84 fL (80-100); Monocytes Percent Auto 9.1 % (0.0-11.0); Neutrophils Percent Auto 78.7 % (42.0-72.0); Platelet Count* 223 K/uL (140-440); RDW Coefficient of Variation % 12.4 % (11.5-15.5); Red Blood Count 4.33 m/uL (4.00-5.20); White Blood Count* 10.49 K/uL (4.50-11.00)
[2024-01-17 06:52] LABS: Slide Review Reflex No
[2024-01-17 06:58] LABS: Albumin* 4.1 g/dL (3.3-5.0); Chloride* 108 mmol/L (96-114)
[2024-01-17 06:59] LABS: Potassium* 3.9 mmol/L (3.6-5.1); Sodium* 139 mmol/L (135-149)
[2024-01-17 07:01] LABS: Alkaline Phosphatase* 60 U/L (40-150); Anion Gap 6 mEq/L (7-15); Aspartate Amino Transferase* 22 U/L (12-35); Bilirubin Total* 0.7 mg/dL (0.1-1.5); Blood Urea Nitrogen* 13 mg/dL (7-30); Carbon Dioxide* 25 mmol/L (20-32); Creatinine* 0.8 mg/dL (0.5-1.5); Est. Creatinine Clearance* 77.88; Estimated Glomerular Filt Rate 89 ml/min; Total Protein* 6.8 g/dL (6.0-8.3)
[2024-01-17 07:02] LABS: Alanine Aminotransferase* 22 U/L (4-35); Calcium* 8.9 mg/dL (8.4-10.6); Glucose* 144 mg/dL (60-115); Lipase* 69 U/L (23-300)
[2024-01-17 07:26] VITALS: PULSE 83
[2024-01-17 07:28] LABS: Troponin I* 0.02 ng/mL (0.01-0.04)
[2024-01-17 07:37] VITALS: BP 104/64; PULSE 80; RESP 12; TEMP 37.2; O2SAT 94
[2024-01-17] MEDS: PARoxetine 20 MG TABLET 40 MG PO (08:50)
[2024-01-17] MEDS: ACETAMINOPHEN 325 MG TABLET 650 MG PO (10:55)
[2024-01-17 11:00] VITALS: BP 139/74; PULSE 82; RESP 12; TEMP 37.1; O2SAT 95
[2024-01-17] MEDS: INSULIN ASPART 100 UNIT/ML SUBCUT (11:42)
--- NOTE | 2024-01-17 12:03 | P.DS_ITS ---
DS: Providers Provider Date Seen: 01/17/24 Date of admission: 01/16/24 18:09 Primary care physician: Not a Local Provider Admitting Clinician: Preeti Grewal MD Attending Physician on discharge: JAMES Etienne, ATULC [place] [facility]ist Date of Discharge: 01/17/24 DS: Diagnosis Discharge Diagnosis (1) Nausea vomiting and diarrhea: Status: Acute Problem details: Suspected viral illness; ddx includes atypical pancreatitis, bacterial infection, ruled out. Reassuring imaging in ED on 01/15 without acute findings in abdomen. Managed with IVFs, antiemetics with resolution of symptoms on morning of discharge. (2) Prolonged Q-T interval on ECG: Status: Acute Problem details: No previous EKGs on file. Mag and potassium normal. Telemetry overnight without concerning findings. Received Zofran in the ambulance, no further doses. Outpatient follow-up with PCP. (3) Chest pain: Status: Acute Problem details: Patient reports chest pain is what was concerning and brought her to the ED despite symptoms consistent with previous episodes. ACS ruled out in the ED. Differential diagnoses including GERD vs ACS vs pancreatitis vs muscular. Troponins remained negative. Telemetry overnight unremarkable. Symptoms resolved prior to discharge. (4) Non-insulin dependent diabetes mellitus: Status: Acute Problem details: Managed with accuchecks and SSI, while holding home Metformin and Jardiance, resumed at discharge. (5) Anxiety: Status: Acute Problem details: Continued on Paxil (6) Essential hypertension: Status: Acute Problem details: Continued on home medications (7) Hyperlipidemia: Status: Acute Problem details: Continued on home medications (8) Elevated lactic acid level: Status: Acute Problem details: Suspected 2/2 dehydration, improved with IVF administration in ED, normalized. DS: Summary Hospital Course Hospital Course: [age] year old female past medical history significant for diabetes mellitus, hypertension, hyperlipidemia was admitted to the medical floor for acute suspected viral gastroenteritis with chest pain for rule out. Course of care and details as noted above. Symptomatic concerning for cardiac event with rule out ACS in the ED. Further monitoring with negative troponins and unremarkable telemetry. Symptoms completely resolved prior to discharge. Outpatient follow-up with PCP for prolonged QTc, avoiding prolonging medications going forward. Remainder of chronic medical comorbidities were monitored and managed with home medications. Status at Discharge Functional status at discharge: independent ambulation Overall status at discharge: patient is back to baseline Time Spent with Patient Time attestation: Total time spent providing and/or coordinating discharge services: Time spent: Greater than 30 minutes Exam Narrative: Exam Narrative: PHYSICAL EXAM General: Pleasant, conversant, NAD Cardiovascular: RRR Pulmonary: No dyspnea Abdomen: Soft, nondistended, nontender Neurological: Alert, answering questions appropriately Skin: Warm, dry. Const: Vital Signs, click to edit/add: Vital Signs - 24 hr 01/16/24 12:30 01/16/24 12:32 01/16/24 13:00 Temperature Pulse Rate 94 96 94 Pulse Rate [Pulse Oximeter] Respiratory Rate Blood Pressure 157/97 H Blood Pressure [Ri ght Arm] Pulse Oximetry 92 91 93 Oxygen Delivery Me thod 01/16/24 13:01 01/16/24 13:02 01/16/24 13:34 Temperature Pulse Rate 94 95 100 Pulse Rate [Pulse Oximeter] Respiratory Rate Blood Pressure 160/94 H Blood Pressure [Ri ght Arm] Pulse Oximetry 92 91 99 Oxygen Delivery Pa thod 01/16/24 13:35 01/16/24 13:36 01/16/24 13:37 Temperature Pulse Rate 98 93 Pulse Rate [Pulse Oximeter] Respiratory Rate Blood Pressure 166/114 H Blood Pressure [Ri ght Arm] Pulse Oximetry 99 100 100 Oxygen Delivery Pa thod 01/16/24 14:00 01/16/24 14:02 01/16/24 14:30 Temperature Pulse Rate 86 89 98 Pulse Rate [Pulse Oximeter] Respiratory Rate Blood Pressure 167/97 H Blood Pressure [Ri ght Arm] Pulse Oximetry 99 98 [facility] 14:32 01/16/24 15:02 01/16/24 17:05 Temperature 98 F Pulse Rate 101 H Pulse Rate [Pulse Oximeter] 99 Respiratory Rate 18 Blood Pressure 145/93 H 150/88 H Blood Pressure [Ri ght Arm] 178/111 H Pulse Oximetry 89 99 [facility] 01/16/24 18:23 01/16/24 19:00 01/16/24 22:55 Temperature 98.5 F Pulse Rate Pulse Rate [Pulse Oximeter] 110 H 94 Respiratory Rate 18 18 Blood Pressure Blood Pressure [Ri ght Arm] 106/72 Pulse Oximetry 99 [facility] Room Air 01/16/24 22:55 01/16/24 22:55 01/16/24 23:00 Temperature 98.5 F Pulse Rate 90 Pulse Rate [Pulse Oximeter] 94 Respiratory Rate 18 18 Blood Pressure Blood Pressure [Ri ght Arm] 99/50 L Pulse Oximetry 94 94 Oxygen Delivery Me thod Room Air Room Air 01/17/24 03:00 01/17/24 07:26 01/17/24 07:37 Temperature 98.5 F 99 F Pulse Rate 83 Pulse Rate [Pulse Oximeter] 88 80 Respiratory Rate 18 12 Blood Pressure Blood Pressure [Ri ght Arm] 108/59 L 104/64 Pulse Oximetry 93 94 Oxygen Delivery Me thod Room Air Room Air 01/17/24 07:37 01/17/24 07:37 01/17/24 11:00 Temperature 98.7 F Pulse Rate Pulse Rate [Pulse Oximeter] 80 82 Respiratory Rate 12 12 12 Blood Pressure Blood Pressure [Ri ght Arm] 139/74 Pulse Oximetry 94 95 Oxygen Delivery Me thod Room Air Room Air DS: Data Data Completed and Pending Labs on day of discharge: Labs from last 24 hours 01/17/24 01/16/24 01/16/24 06:23 18:28 16:58 WBC 10.49 RBC 4.33 Hgb 12.3 Hct 36.3 MCV 84 MCH 28 MCHC 34 RDW Coeff of Arpan 12.4 Plt Count 223 Neut % (Auto) 78.7 H Lymph % (Auto) 11.5 L [place] % (Auto) 9.1 Eos % (Auto) 0.2 Baso % (Auto) 0.4 Neut # (Auto) 8.30 H Lymph # (Auto) 1.20 [place] # (Auto) 1.00 H Eos # (Auto) 0.02 Baso # (Auto) 0.04 Abs Immat Gran (auto) 0.01 Imm/Tot Granulo (auto) 0.1 VBG pH 7.415 VBG pCO2 29 L VBG pO2 < 30.1 VBG HCO3 18 L Sodium 139 Potassium 3.9 Chloride 108 Carbon Dioxide 25 Anion Gap 6 L BUN 13 Creatinine 0.8 Estimated Creat Clear 77.88 Estimated GFR 89 Glucose 144 H Lactate Calcium 8.9 Magnesium Total Bilirubin 0.7 AST 22 ALT 22 Alkaline Phosphatase 60 Troponin I 0.02 0.02 Total Protein 6.8 Albumin 4.1 Lipase 69 Urine Color Urine Appearance Urine pH Ur Specific [place] Urine Protein Urine Glucose (UA) Urine Ketones Urine Blood Urine Nitrite Urine Bilirubin Urine Urobilinogen Ur Leukocyte Esterase Urine RBC Urine WBC Ur Squamous Epith Cells Urine Bacteria Lab Acknowledgement Test Added POC Glucose POC Troponin I 01/16/24 01/16/24 01/16/24 13:27 13:07 12:43 WBC RBC Hgb Hct MCV MCH MCHC RDW Coeff of Arpan Plt Count Neut % (Auto) Lymph % (Auto) [place] % (Auto) Eos % (Auto) Baso % (Auto) Neut # (Auto) Lymph # (Auto) [place] # (Auto) Eos # (Auto) Baso # (Auto) Abs Immat Gran (auto) Imm/Tot Granulo (auto) VBG pH VBG pCO2 VBG pO2 VBG HCO3 Sodium Potassium Chloride Carbon Dioxide Anion Gap BUN Creatinine Estimated Creat Clear Estimated GFR Glucose Lactate 1.6 Calcium Magnesium Total Bilirubin AST ALT Alkaline Phosphatase Troponin I Total Protein Albumin Lipase Urine Color Yellow Urine Appearance Clear Urine pH 5.5 Ur Specific [place] <= 1.005 Urine Protein Negative Urine Glucose (UA) 2+ A Urine Ketones 2+ A Urine Blood Negative Urine Nitrite Negative Urine Bilirubin Negative Urine Urobilinogen 0.2 Ur Leukocyte Esterase Negative Urine RBC 0-2 Urine WBC 0-2 Ur Squamous Epith Cells None Urine Bacteria None Lab Acknowledgement POC Glucose 244 H POC Troponin I 0.00 L 01/16/24 10:41 WBC RBC Hgb Hct MCV MCH MCHC RDW Coeff of Arpan Plt Count Neut % (Auto) Lymph % (Auto) [place] % (Auto) Eos % (Auto) Baso % (Auto) Neut # (Auto) Lymph # (Auto) [place] # (Auto) Eos # (Auto) Baso # (Auto) Abs Immat Gran (auto) Imm/Tot Granulo (auto) VBG pH VBG pCO2 VBG pO2 VBG HCO3 Sodium Potassium Chloride Carbon Dioxide Anion Gap BUN Creatinine Estimated Creat Clear Estimated GFR Glucose Lactate Calcium Magnesium 2.1 Total Bilirubin AST ALT Alkaline Phosphatase Troponin I Total Protein Albumin Lipase Urine Color Urine Appearance Urine pH Ur Specific [place] Urine Protein Urine Glucose (UA) Urine Ketones Urine Blood Urine Nitrite Urine Bilirubin Urine Urobilinogen Ur Leukocyte Esterase Urine RBC Urine WBC Ur Squamous Epith Cells Urine Bacteria Lab Acknowledgement POC Glucose POC Troponin I Imaging CT scan - chest: Attestation: I have reviewed the pertinent imaging results. Radiologist's impression: CT chest PE was acquired with 95 cc Isovue 370 intravenous contrast. COMPARISON: None. FINDINGS: Heart and vasculature: Opacification of the pulmonary artery is suboptimal some likely mixing of unopacified blood from the inferior vena cava. This mildly reduces sensitivity although no definite pulmonary emboli are seen. No pericardial effusion. Thoracic aorta is normal in caliber. Mild coronary atherosclerosis. Lungs and pleural: No pleural effusion or pneumothorax. 3 millimeter noncalcified pulmonary nodules left lower lobe (series 5, image 86 and 116). Lymph nodes/mediastinum: No mediastinal, hilar, or axillary adenopathy. Chest wall: No masses. Upper abdomen: Normal. Bones: Unremarkable for age. IMPRESSION: 1. Suboptimal examination for the detection of pulmonary embolus without definite pulmonary emboli. 2. Mild coronary atherosclerosis. 3. Indeterminate pulmonary nodules left lower lobe measuring 3 millimeters. Management as per Fleischner society criteria below. CT scan - abdomen: Attestation: I have reviewed the pertinent imaging results. Radiologist's impression: CT abdomen and pelvis acquired with 100 cc Omnipaque 350 IV contrast. COMPARISON: None. FINDINGS: Lower chest: Unremarkable. Liver: Unremarkable. Normal in size and attenuation. No suspicious masses. Gallbladder and bile ducts: Unremarkable. No stones or inflammation. No biliary dilatation. Pancreas: Unremarkable. No mass or inflammation. Spleen: Unremarkable. Normal in size. No masses. Adrenal glands: Unremarkable. No nodules. Kidneys: Unremarkable. No suspicious masses, stones, or hydronephrosis. GI tract: Colonic diverticulosis. Normal in caliber. No sign of mass or inflammation. Normal appendix. Vasculature: Abdominal aorta is normal in caliber with moderate calcified atherosclerosis. Mesenteric arteries are patent. Lymph nodes: No lymphadenopathy. Peritoneum/Abdominal Wall: Unremarkable. No sign of mass or infiltration. No free air or significant free fluid. Pelvis: Unremarkable. Bones: Moderate degenerative changes in the lower lumbar spine. IMPRESSION: No acute abnormality in the abdomen or pelvis. Discharge Plan Discharge Disposition: Home, Self-Care Date of Admission: 01/16/24 18:09 Attending Provider on Discharge: Tracee Culver Primary Care Provider: Provider,Not a Local Condition: Improved Anticipated Discharge Date/Time: 01/17/24 11:48 Discharge Medications: Continued propranolol 20 mg tablet 20 mg PO BID metformin 500 mg tablet extended release 24 hr 1,000 mg PO BID paroxetine HCl 40 mg tablet 40 mg PO DAILY lisinopril 20 mg tablet 20 mg PO DAILY lorazepam [Ativan] 1 mg tablet 1 mg PO Q8H PRN fenofibrate 160 mg tablet 160 mg PO DAILY atorvastatin 40 mg tablet 40 mg PO DAILY zolpidem 10 mg tablet 10 mg PO QPM PRN Jardiance 25 mg tablet 25 mg PO DAILY glimepiride 4 mg tablet 4 mg PO DAILY Discharge Orders: Discharge Order (Routine); Ordered 01/17/24 Ordered By: Tracee Culver Patient Education: Gastroenteritis (GEN) Activity Level: No Restrictions Discharge Diet: Regular Follow Up Appointments: Provider,Not a Local [Primary Care Provider] - (Outpatient follow up as needed) Forms: [employer] Info Instructions
--- NOTE | 2024-01-17 12:59 | PC.NURSE ---
Discharge: Patient pleasant and cooperative. Patient vitally stable, lungs clear, BS WNL, IV removed, catheter intact. Patient independent in room. Patient rates chest pain with deep breathes 3/10, tylenol given once. Patient urinating, No BM today, and tolerating regular diet with no emesis or nausea. Patient tele=NSR. Patient left the floor by foot independently to home at 1256. Patient signed belongings sheet and discharge form with no further questions.
== END 2024-01-17 12:56 | disposition home or self-care (01) | DRG 392 ==
LOC: ED 16:48 → MEDSURG 17:01
PROVIDERS: Admitting Provider Family Medicine; Emergency Provider Family Medicine; Visit Provider Family Medicine
DX: R11.2 Nausea with vomiting, unspecified (principal); R07.9 Chest pain, unspecified; E78.5 Hyperlipidemia, unspecified; I10 Essential (primary) hypertension; F41.9 Anxiety disorder, unspecified; E11.9 Type 2 diabetes mellitus without complications; Z79.84 Long term (current) use of oral hypoglycemic drugs; R74.02 Elevation of levels of lactic acid dehydrogenase [LDH]; R94.31 Abnormal electrocardiogram [ECG] [EKG]
CPT/HCPCS: 36415; 71275; 74177; 80048; 80053; 80076; 81001; 82077; 82150; 82803; 82947; 82962; 83605; 83690; 83735; 84145; 84484; 85025; 86140; 87631; 93005; 94761; 99285; A9270; J1170; J1200; J2060; J2270; J2470; J2765; J7030; J7120; Q9967